=== PATIENT | female | born 1940 | race Caucasian/White ===

== ENCOUNTER → 2016-09-03 | Outpatient (CLI) | payer MEDICARE, OTHER ==
[~2016-09-03] MED LIST: ACHD5005 PO; ASPI-587 PO; ATOR20TA49 PO; CEFU250T PO; CEFU800T34 PO; CEPH500C PO; CLOP75TA28 PO; CLPD75T PO; DOCU-143 PO; ENXP40I.4 SQ; HYDR-1231 PO; HYDR-2890 PO; HYDR-757 PO; HYDR1TAB PO; MELO-195 PO; MELO15TA14 PO; MULT-301 PO; NITR-65 PO; ONDA-42 SL; ONDA4TAB8 PO; OXYC-197 PO; PRD20T PO; RIVA1TAB PO; THYR30TA2 PO; THYR60TA2 PO
[2016-09-03 10:09] LABS: BASOPHILS % (AUTO) 1 % (0-10); EOSINOPHILS # (AUTO) 0.2 10^3/uL (0.0-0.3); EOSINOPHILS % (AUTO) 3 % (0-10); LYMPHOCYTES # (AUTO) 1.4 X 10^3 (1.0-4.0); LYMPHOCYTES % (AUTO) 22 % (12-44); MEAN CORPUSCULAR HEMOGLOBIN 30 PG (25-34); MEAN CORPUSCULAR HGB CONC 34 G/DL (32-36); MEAN CORPUSCULAR VOLUME 88 FL (80-99); MEAN PLATELET VOLUME 11.5 FL (7.4-10.4); MONOCYTES # (AUTO) 0.6 X 10^3 (0.0-1.0); MONOCYTES % (AUTO) 9 % (0-12); NEUTROPHILS % (AUTO) 65 % (42-75); PLATELET COUNT 230 10^3/uL (130-400); RED BLOOD COUNT 4.91 10^6/uL (4.35-5.85); RED CELL DISTRIBUTION WIDTH 14.4 % (10.0-14.5); WHITE BLOOD COUNT 6.2 10^3/uL (4.3-11.0)
--- OUTSIDE RECORDS SUMMARY | 2016-09-03 13:26 | XMS REPORT | Continuity of Care Document ---
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 Daughter Azael would make decisions for her 08/28/15 5:55pm Organ Donor No 08/28/15 5:55pm Chief Complaint and Reason for Visit Chief Complaint Allergic Reaction Reason for Visit Allergic contact dermatitis Problems Active Problems Medical Problem Onset Date Status Acute deep vein thrombosis (DVT) of popliteal vein of left lower extremity Unknown Acute Acute deep vein thrombosis (DVT) of popliteal vein of left lower extremity Unknown Acute Acute deep vein thrombosis (DVT) of popliteal vein of left lower extremity Unknown Acute Allergic contact dermatitis Unknown Acute Headache Unknown Acute Headache Unknown Acute Hypertensive urgency Unknown Acute Hypertensive urgency Unknown Acute Hypertensive urgency Unknown Acute Lumbar back pain Unknown Acute Nausea alone Unknown Acute Nausea alone Unknown Acute Nausea and vomiting Unknown Acute UTI (urinary tract infection) Unknown Acute Uncontrolled hypertension Unknown Acute Urinary tract infection Unknown Acute Urinary tract infection Unknown Acute Urinary tract infection Unknown Acute Vertigo Unknown Acute Weakness generalized Unknown Acute Medications Current Home Medications Medication Dose Units Route Directions Days/Qty Instructions Start Date Meloxicam 15 Mg 15 Mg Oral Daily 08/28/15 Hydrocodone/Acetaminophen 1 Each 1 Tab Oral Twice A Day as needed for Pain 08/28/15 Multivitamin 1 Each 1 Tab Oral Daily 08/28/15 Thyroid,Pork 30 Mg 60 Mg Oral Daily 08/29/15 Clopidogrel Bisulfate 75 Mg 75 Mg Oral Daily 09/01/15 Atorvastatin Calcium 20 Mg 20 Mg Oral Daily 09/01/15 Past Home Medications Medication Directions Ordered Status Thyroid,Pork 60 Mg Tablet, 60 Mg Oral Daily 01/04/12 Discontinued Acetaminophen/Hydrocodone Bitart 1 Each Tablet, 1 - 2 Each Oral Every 6 Hours as needed 01/04/12 Discontinued Acetaminophen/Hydrocodone Bitart 1 Each Tablet, 1 Each Oral Every 4 Hours as needed 01/20/12 Discontinued Acetaminophen/Hydrocodone Bitart 1 Each Tablet, 1 Tab Oral Every 3 Hours as needed 01/30/12 Discontinued Enoxaparin Sodium 40 Mg/0.4 Ml Disp.syrin, 1 Each Sub-Q Daily 01/30/12 Discontinued Cefuroxime Axetil 500 Mg Tablet, 250 Mg Oral Twice A Day 01/24/13 Discontinued Meloxicam (Mobic) 15 Mg Tablet, 15 Mg Oral Daily 12/19/13 Discontinued Clopidogrel Bisulfate 75 Mg Tab, 75 Mg Oral Daily 12/23/13 Discontinued Cephalexin Monohydrate (Keflex) 500 Mg Capsule, 1 Each Oral Four Times Daily 01/23/15 Discontinued Hydrocodone Bit/Acetaminophen 1 Tab Tablet, 1 Tab Oral Every 4HRS as needed for Pain 01/23/15 Discontinued Ondansetron Hcl 4 Mg Tab, 4 Mg Sublingual Every 4HRS as needed for Nausea Discontinued Thyroid,Pork 30 Mg Tablet, 60 Mg Oral Daily 01/25/15 Discontinued Hydrocodone Bit/Acetaminophen 1 Each Tablet, 1 Tab Oral Every 4HRS as needed for Pain 01/25/15 Discontinued Nitrofurantoin Macrocrystals 100 Mg Capsule, 1 Each Oral Twice A Day Discontinued Rivaroxaban 1 Each Tab.ds.pk, 1 Each Oral As Directed 02/11/15 Discontinued Oxycodone Hcl/Acetaminophen 1 Each Tablet, 1 Each Oral Every 4HRS for Pain Discontinued Docusate Sodium 100 Mg Capsule, 100 Mg Oral Daily 02/17/15 Discontinued Ondansetron 4 Mg Tab.rapdis, 4 Mg Oral Every 4HRS as needed for Nausea Discontinued Cefuroxime Axetil 250 Mg Tablet, 250 Mg Oral Twice A Day for Uti (Begin 13 Am) 07/25/15 Discontinued Thyroid,Pork 60 Mg Tablet, 60 Mg Oral Daily 08/28/15 Discontinued Social History Social History Problem Response Recorded Date/Time Alcohol Use Denies Use 08/28/2015 6:06pm Recreational Drug Use No 08/28/2015 6:06pm Recent Foreign Travel No 01/09/2014 10:52am Recent Infectious Disease Exposure No 02/25/2016 5:37pm Hospitalization with Isolation Denies 01/09/2014 10:52am Recent Hopitalizations Y SURGERIES 02/25/2016 5:44pm Hospitalization with Isolation Denies 01/09/2014 10:52am Hospital Discharge Instructions No hospital discharge instructions. Plan of Care Discharge Date 02/25/16 7:02pm Disposition 01 HOME, SELF-CARE Condition at Discharge Stable Instructions/Education Provided Contact Dermatitis (ED) Prescriptions See Medication Section Referrals WILLY UMANZOR MD - Primary Care Physician Functional Status No functional status results. Allergies, Adverse Reactions, Alerts Allergen Type Severity Reaction Status Last Updated Morphine Adverse Reaction Mild "MAKES ME CRAZY", TAKES LORTAB AT HOME Active 01/26/15 Immunizations No immunization records. Vital Signs Acute Vital Signs Vital Response Date/Time Temperature (Fahrenheit) 97.8 degrees F (97.6 - 99.5) 02/25/2016 5:37pm Temperature (Calculated Celsius) 36.66746 degrees C (36.4 - 37.5) 02/25/2016 5:37pm Temperature Source Temporal 02/25/2016 5:37pm Pulse Rate (adult) 80 bpm (60 - 90) 02/25/2016 5:37pm Respiratory Rate 18 bpm (12 - 24) 02/25/2016 5:37pm Blood Pressure 137/87 mm Hg 02/25/2016 5:37pm Blood Pressure Mean 104 mm Hg 02/25/2016 5:37pm Pain Numeric Pain Scale 0-No Pain 02/25/2016 5:37pm Height (Feet) 5 feet 02/25/2016 5:37pm Height (Inches) 6 inches 02/25/2016 5:37pm Height (Calculated Centimeters) 167.762561 cm 02/25/2016 5:37pm Weight (Pounds) 175 pounds 02/25/2016 5:37pm Weight (Calculated Kilograms) 79.645360 kilograms 02/25/2016 5:37pm Capillary Refill Capillary Refill Less Than 3 Seconds 02/25/2016 5:37pm Height 5 ft 6 in Weight 175 lb Body Mass Index 28.2 kg/m^2 Results No known relevant diagnostic tests, laboratory data and/or discharge summary. Procedures No known history of procedures. Encounters Encounter Location Arrival/Admit Date Discharge/Depart Date Attending Provider Departed Emergency Room [facility] 02/25/16 5:15pm 02/24 7:02pm IVA BOND DO Recent Diagnosis
== END ==
LOC: LAB 09:50
PROVIDERS: ATTEND Family Medicine
DX: R53.1 Weakness (principal)
CPT/HCPCS: 36415; 84443; 85025

== ENCOUNTER → 2017-02-05 | Outpatient (CLI) | payer MEDICARE, OTHER ==
--- NOTE | 2017-02-05 11:08 | Diagnostic Imaging Report ---
3 views of the left shoulder. INDICATION: Left shoulder pain. FINDINGS: No fracture, dislocation or radiopaque foreign body. There is severe degenerative change seen in the left glenohumeral joint with inferior osteophytes, subchondral sclerosis and subchondral cystic changes. The acromioclavicular joints demonstrate moderate osteoarthritis changes. IMPRESSION: Markedly severe left glenohumeral joint osteoarthritis. Dictated by: Dictated on workstation # [id number]
--- NOTE | 2017-02-05 11:10 | Diagnostic Imaging Report ---
EXAMINATION: Two views of the left hip. INDICATION: Left hip replacement. FINDINGS: There is total left hip arthroplasty in good position. No acute fracture. No abnormal lucency or evidence of loosening or displacement of the hardware. IMPRESSION: No acute process. Dictated by: Dictated on workstation # [id number]
--- NOTE | 2017-02-05 12:28 | Diagnostic Imaging Report ---
Two views of the left knee. INDICATION: Left knee pain. FINDINGS: There is total left knee replacement in good alignment. There is no acute fracture seen. No suprapatellar effusion. IMPRESSION: No acute process. Dictated by: Dictated on workstation # [id number]
== END ==
LOC: RAD 09:32
PROVIDERS: ATTEND Family Medicine
DX: M19.012 Primary osteoarthritis, left shoulder (principal); M25.562 Pain in left knee; M25.552 Pain in left hip; Z96.642 Presence of left artificial hip joint; Z96.652 Presence of left artificial knee joint
CPT/HCPCS: 73030; 73502; 73562

== ENCOUNTER → 2017-04-17 | Outpatient (CLI) | payer MEDICARE, OTHER ==
--- NOTE | 2017-04-17 10:24 | Diagnostic Imaging Report ---
PROCEDURE: MRI right joint upper extremity without contrast. TECHNIQUE: Multiplanar, multisequence non contrast-enhanced MRI of the right upper extremity was accomplished. INDICATION: Right shoulder pain. FINDINGS: There is no os acromiale. The humeral head demonstrates subchondral edema and cyst formation at the rotator cuff insertion site particularly posterolaterally and prominent osteophyte formation particularly large inferiorly along the humeral head. Subchondral cyst formation at the upper aspect of the glenoid is seen. There is suggestion of severe loss of cartilage in the glenohumeral joint compatible with advanced osteoarthritis. The long head of biceps tendon appears to be within its groove. There is poor definition of the glenoid labrum probably related to degeneration. The acromioclavicular joint demonstrates mild degenerative changes with superior osteophytes. No significant inferior osteophytes. The supraspinatus and infraspinatus demonstrate undersurface partial tear. This is associated with mild retraction of the torn deep fibers with about 7 mm retraction. This is best seen on oblique coronal images 9, 10, and 11. The subscapularis tendon demonstrate a high-grade partial tear in its distal tendon fibers. There is mild atrophy in the infraspinatus and subscapularis muscles and moderate atrophy of the supraspinatus muscle. IMPRESSION: 1. Severe osteoarthritis changes with near-complete loss of cartilage in the glenohumeral joint. 2. Prominent partial tears in the rotator cuff tendons. There is a portion of the supraspinatus and infraspinatus tendon demonstrating mild retraction of its torn undersurface fibers. 3. Mild/ moderate atrophy of the muscles of the rotator cuff. Dictated by: Dictated on workstation # [id number]
== END ==
LOC: RAD 08:15
PROVIDERS: ATTEND Family Medicine
DX: M19.011 Primary osteoarthritis, right shoulder (principal); M75.101 Unspecified rotator cuff tear or rupture of right shoulder, not specified as traumatic; M62.511 Muscle wasting and atrophy, not elsewhere classified, right shoulder
CPT/HCPCS: 73221

== ENCOUNTER → 2017-04-30 | Outpatient (CLI) | payer MEDICARE, OTHER ==
--- NOTE | 2017-04-30 13:42 | Diagnostic Imaging Report ---
EXAMINATION: Bilateral lower extremity duplex venous ultrasound. TECHNIQUE: DVT protocol. Multiple sonographic images with color Doppler and waveform interrogation were performed of the lower extremity veins, bilaterally, with compression and augmentation maneuvers. INDICATION: Bilateral leg swelling. FINDINGS: The lower extremity veins from the common femoral veins to below the knee veins were examined with normal color-flow, compressibility and normal waveform demonstrated. The great saphenous vein on the left side is not evaluated. The great saphenous vein on the right side appears patent. There is a medial left popliteal lesion measuring 2.5 x 1.7 x 3.4 cm with hypoechoic internal echotexture and increased through transmission likely related to a Mcfarland's cyst with debris or hemorrhage. The right calf medial area of pain is scanned with no underlying lesion identified. IMPRESSION: 1. No evidence of DVT in either lower extremity. 2. Hypoechoic lesion measuring 3.4 cm in the medial aspect of the popliteal fossa on the right side is probably a Mcfarland's cyst with internal hemorrhage or debris. Dictated by: Dictated on workstation # [id number]
== END ==
LOC: RAD 12:44
PROVIDERS: ATTEND Nurse Practitioner Family
DX: R22.43 Localized swelling, mass and lump, lower limb, bilateral (principal); R93.7 Abnormal findings on diagnostic imaging of other parts of musculoskeletal system
CPT/HCPCS: 93970

== ENCOUNTER → 2017-04-30 | Outpatient (CLI) | payer MEDICARE, OTHER ==
[2017-04-30 13:53] LABS: ABG BASE EXCESS -0.4 MMOL/L (-2.5-2.5); ABG HCO3 24 MMOL/L (23-27); ABG OXYGEN SATURATION 98 % (94-100); ABG PCO2 35 MMHG (35-45); ABG PH 7.43 (7.37-7.43); ABG PO2 85 MMHG (79-93); ABG TCO2 24.6 MMOL/L (21.0-31.0)
[2017-04-30 13:54] LABS: ALLENS TEST YES-POS; PATIENT TEMP 97.1
== END ==
LOC: RT 12:47
PROVIDERS: ATTEND Nurse Practitioner Family
DX: R06.02 Shortness of breath (principal)
CPT/HCPCS: 82805; 94060; 94726; 94729

== ENCOUNTER → 2017-05-28 | Outpatient (CLI) | payer MEDICARE, OTHER ==
--- NOTE | 2017-05-28 18:49 | Diagnostic Imaging Report ---
INDICATION: Right hip pain. AP and oblique views of the right hip are obtained and compared to 01/09/14. FINDINGS: Right hip prosthesis appears in good alignment. There is no sign of fracture or loosening. There are some chronic appearing soft tissue calcifications adjacent to the lesser trochanter. IMPRESSION: Well aligned right hip prosthesis with no acute appearing abnormality. Dictated by: Dictated on workstation # [id number]
== END ==
LOC: RAD 18:21
PROVIDERS: ATTEND Family Medicine
DX: M25.551 Pain in right hip (principal); Z96.641 Presence of right artificial hip joint
CPT/HCPCS: 73502

== ENCOUNTER → 2017-06-11 | Outpatient (CLI) | payer MEDICARE, OTHER ==
--- NOTE | 2017-06-11 12:42 | Diagnostic Imaging Report ---
PROCEDURE: MRI right joint lower extremity without contrast. TECHNIQUE: Multiplanar, multisequence non contrast-enhanced MRI of the right lower extremity was accomplished. INDICATION: Right hip pain. History of right hip replacement. FINDINGS: Please note that the replacement hardware produces prominent susceptibility artifact that limits evaluation of the surrounding osseous structures. The marrow signal is altered around the prosthesis with no definite marrow signal abnormality seen. There is suggestion of a small pocket of fluid measuring 1.5 x 2.2 x 2.4 cm posterior to the location of the neck of the left femur just posterior to the prosthesis. This is not surrounded with significant edema or signal abnormality in the surrounding soft tissues and is favored to be a postoperative seroma of questionable significance. The visualized portions of the supra-acetabular region and the superior and inferior pubic rami on the right side appear unremarkable. Muscles have normal signal around the right hip. The portion of the iliopsoas tendon is obscured at the hip joint level from prosthesis related artifacts. The rest of the tendon and the insertion of the iliopsoas appear normal. Mild edema around the gluteus medius tendon insertion is seen compatible with tendinosis. Coronal image demonstrating the left hip shows distention of the greater trochanteric bursa on the left side. Minimal edema around the origin of the hamstring muscles is seen without significant tear. IMPRESSION: Suggestion of tendinitis involving the insertion of the right gluteus medius and the origin of the hamstring muscles with no significant tear. Dictated by: Dictated on workstation # [id number]
== END ==
LOC: RAD 08:44
PROVIDERS: ATTEND Family Medicine
DX: M25.551 Pain in right hip (principal); Z96.641 Presence of right artificial hip joint
CPT/HCPCS: 73721

== ENCOUNTER 2017-06-17 09:59 | Outpatient (CLI) | payer MEDICARE, OTHER ==
[~2017-06-17] VITALS: Ht 167.6 cm; Wt 72.1 kg
[2017-06-17 10:09] VITALS: BP 140/63
[2017-06-17] MEDS ORDERED: AMLO10TA2 PO (10:25)
[2017-06-17] MEDS ORDERED: ENAL20TA PO (10:25)
[2017-06-17] MEDS ORDERED: MULT1TAB69 PO (10:25)
[2017-06-17] MEDS ORDERED: ASPI-586 PO (10:25)
[2017-06-17] MEDS ORDERED: ATOR20TA66 PO (10:25)
[2017-06-17] MEDS ORDERED: CLOP75TA28 PO (10:25)
[2017-06-17 11:01] LABS: BILIRUBIN,URINE NEGATIVE (NEGATIVE); KETONES,URINE NEGATIVE (NEGATIVE); LEUKOCYTE ESTERASE ,URINE 3+ (NEGATIVE); NITRITE,URINE POSITIVE (NEGATIVE); PH,URINE 6 (5-9); PROTEIN,URINE 1+ (NEGATIVE); UROBILINOGEN,URINE NORMAL (NORMAL)
[2017-06-17 11:08] LABS: BASOPHILS % (AUTO) 1 % (0-10); EOSINOPHILS # (AUTO) 0.2 10^3/uL (0.0-0.3); EOSINOPHILS % (AUTO) 3 % (0-10); LYMPHOCYTES # (AUTO) 1.6 X 10^3 (1.0-4.0); LYMPHOCYTES % (AUTO) 26 % (12-44); MEAN CORPUSCULAR HEMOGLOBIN 30 PG (25-34); MEAN CORPUSCULAR HGB CONC 33 G/DL (32-36); MEAN CORPUSCULAR VOLUME 90 FL (80-99); MEAN PLATELET VOLUME 11.8 FL (7.4-10.4); MONOCYTES # (AUTO) 0.6 X 10^3 (0.0-1.0); MONOCYTES % (AUTO) 10 % (0-12); NEUTROPHILS # (AUTO) 3.7 X 10^3 (1.8-7.8); NEUTROPHILS % (AUTO) 61 % (42-75); PLATELET COUNT 195 10^3/uL (130-400); RED BLOOD COUNT 4.54 10^6/uL (4.35-5.85); RED CELL DISTRIBUTION WIDTH 14.2 % (10.0-14.5)
[2017-06-17 11:09] LABS: WBC,URINE 50-100 /HPF
[2017-06-17 11:14] LABS: INR 0.9 (0.8-1.4); PROTHROMBIN TIME PATIENT 12.3 SEC (12.2-14.7)
--- NOTE | 2017-06-17 11:16 | Diagnostic Imaging Report ---
EXAMINATION: PA and lateral views of the chest. INDICATION: Preoperative evaluation for shoulder arthroplasty. FINDINGS: The lungs demonstrate hyperinflation and minimal prominence of the interstitial markings that appear to be chronic. No focal infiltrate. The heart size is normal. No effusion or pneumothorax. The mediastinum and elena appear unremarkable. Degenerative changes in the thoracic spine discs and mild anterior osteophytes are noted. IMPRESSION: No acute process. Dictated by: Dictated on workstation # [id number]
[2017-06-17 11:23] LABS: ANION GAP 7 MMOL/L (5-14); BLOOD UREA NITROGEN 13 MG/DL (7-18); BUN/CREATININE RATIO 18; CALCIUM 9.5 MG/DL (8.5-10.1); CARBON DIOXIDE 29 MMOL/L (21-32); CHLORIDE 105 MMOL/L (98-107); CREATININE SERUM 0.73 MG/DL (0.60-1.30); GFR ESTIMATED > 60; GLUCOSE 94 MG/DL (70-105); SODIUM 141 MMOL/L (135-145)
== END 2017-06-17 10:55 | disposition home or self-care (01) ==
LOC: PREOP 09:59
PROVIDERS: ATTEND Orthopaedic Surgery
DX: Z01.810 Encounter for preprocedural cardiovascular examination (principal); Z01.812 Encounter for preprocedural laboratory examination; Z11.2 Encounter for screening for other bacterial diseases; M75.101 Unspecified rotator cuff tear or rupture of right shoulder, not specified as traumatic; M79.601 Pain in right arm; R53.83 Other fatigue; I10 Essential (primary) hypertension; Z22.322 Carrier or suspected carrier of Methicillin resistant Staphylococcus aureus; R82.90 Unspecified abnormal findings in urine
CPT/HCPCS: 36415; 71020; 80048; 81000; 85025; 85610; 86850; 86900; 86901; 87081; 87088; 87186

== ENCOUNTER 2017-07-01 06:00 | Inpatient (IN) | payer MEDICARE, OTHER ==
[~2017-07-01] VITALS: Ht 167.6 cm; Wt 72.1 kg
[~2017-07-01 06:00] MED LIST changes: +AMLO10TA2 PO; +ASPI-586 PO; +ATOR20TA66 PO; +ENAL20TA PO; +MULT1TAB69 PO
[2017-07-01] MEDS: LACTATED RINGERS 1,000 ML IV PRN ×2 (06:25→09:10)
[2017-07-01] MEDS ORDERED: fentaNYL INJECTION 100 MCG/2 ML AMP ONE (06:49)
[2017-07-01] MEDS ORDERED: MIDAZOLAM 2 MG/2 ML (VERSED) VIAL ONE (06:49)
[2017-07-01] MEDS ORDERED: ROPIVACAINE 5MG/ML 30ML VIAL ONE (06:49)
[2017-07-01] MEDS ORDERED: LACTATED RINGERS 1,000 ML IV PRN (06:56)
[2017-07-01] MEDS ORDERED: GENTAMICIN 40 MG/ML 2 ML INJ SDV ONE (06:59)
[2017-07-01] MEDS ORDERED: NEO/POLY/BAC (NEOSPORIN) OINT 15 GM TUBE ONE (06:59)
[2017-07-01] MEDS ORDERED: ONDANSETRON 4 MG/2 ML (SDV) Z0FRAN IVP ONE ×2 (07:00→07:30)
[2017-07-01] MEDS ORDERED: DEXAMETHASONE 4 MG/ML SDV (DECADRON) IV ONE ×2 (07:00→07:30)
[2017-07-01] MEDS ORDERED: CELECOXIB 100 MG (CeleBREX) CAP PO ONE ×3 (07:00→07:30)
[2017-07-01] MEDS ORDERED: ceFAZolin INJECTION 1,000 MG in NS (IVPB) 50 ML IV ONE (07:00)
[2017-07-01] MEDS ORDERED: GABAPENTIN 600 MG (NEURONTIN) TAB PO ONE ×2 (07:00→07:30)
[2017-07-01] MEDS ORDERED: ONDANSETRON 4 MG/2 ML (SDV) Z0FRAN ONE (07:06)
[2017-07-01] MEDS ORDERED: ceFAZolin 2 GM/50 ML NS 50 ML ONE (07:07)
[2017-07-01] MEDS ORDERED: DEXAMETHASONE 4 MG/ML SDV (DECADRON) ONE (07:07)
[2017-07-01] MEDS ORDERED: ROCURONIUM 50 MG/5 ML (ZEMURON) VIAL IV ONE (07:12)
[2017-07-01] MEDS ORDERED: proPOfol 200 MG/20 ML (DIPRIVAN) VIAL IV ONE (07:12)
[2017-07-01] MEDS ORDERED: ceFAZolin 2 GM/50 ML NS 50 ML IV ONE (07:30)
--- NOTE | 2017-07-01 07:35 | Diagnostic Imaging Report ---
INDICATION: Osteoarthritis. 2 views were obtained. FINDINGS: There is moderate arthrosis of the acromioclavicular joint. There is severe osteoarthritic change of the right glenohumeral joint. This includes almost complete loss of joint space, subchondral sclerosis and marginal osteophytosis. There is no fracture or dislocation. Right lung is clear. Soft tissues are unremarkable. IMPRESSION: Degenerative changes about the right shoulder as described Dictated by: Dictated on workstation # [id number]
[2017-07-01] MEDS ORDERED: fentaNYL INJECTION 100 MCG/2 ML AMP IVP PRN (07:45)
[2017-07-01] MEDS ORDERED: BISACODYL 10 MG SUPP (DULCOLAX) PR PRN (07:45)
[2017-07-01] MEDS ORDERED: PROMETHAZINE INJ 25 MG/ML (PHENERGAN) AMP IVP PRN (07:45)
[2017-07-01] MEDS ORDERED: diphenhydrAMINE 50 MG/ML INJ (BENADRYL) IV PRN (07:45)
[2017-07-01] MEDS ORDERED: ONDANSETRON 4 MG/2 ML (SDV) Z0FRAN IVP PRN ×2 (07:45→10:15)
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
--- NOTE | 2017-07-01 07:55 | Progress Note-Pre Operative ---
Pre-Operative Progress Note H&P Reviewed The H&P was reviewed, patient examined and no changes noted. Date Seen by Provider: Jul 01, 2017 Time Seen by Provider: 07:45 Date H&P Reviewed: Jul 01, 2017 Time H&P Reviewed: 07:45 Pre-Operative Diagnosis: Primary osteoarthritis right shoulder Rotator cuff arthropathy right ALEXSANDER Francisco DO Jul 01, 2017 7:55 am
[2017-07-01] MEDS ORDERED: TRANEXAMIC ACID 100 MG/ML 10 ML INJECTION IV ONE (08:39)
[2017-07-01] MEDS ORDERED: NEOSTIGMINE (BLOXIVERZ ) 1 MG/1ML 10 ML VIAL ONE (09:44)
[2017-07-01] MEDS ORDERED: GLYCOPYRROLATE 0.2 MG/ML (ROBINUL) 2 ML VIAL ONE (09:44)
[2017-07-01] MEDS ORDERED: SEVOFLURANE (ULTANE) 15 ML INHAL SOLN ONE (09:53)
--- NOTE | 2017-07-01 10:11 | Progress Note-Post Operative ---
Post-Operative Progess Note Surgeon (s)/Oncology Patient Navigator (s) Surgeon ALEXSANDRE GUILLEN DO Oncology Patient Navigator: Zaid Mcclendon FRINGE WEAVERAlicia Pre-Operative Diagnosis Primary osteoarthritis right shoulder Rotator cuff arthropathy right shoul Post-Operative Diagnosis same Procedure & Operative Findings Date of Procedure 07/01/17 Procedure Performed/Findings Right reverse total shoulder arthroplasty Anesthesia Type General with interscalene block Estimated Blood Loss Estimated blood loss (mL): 100 ml Specimens/Packing Specimens Removed none ALEXSANDER GUILLEN DO Jul 01, 2017 10:11 am
[2017-07-01] MEDS ORDERED: HYDROmorphone (DILAUDID) 2 MG/ML VIAL IVP PRN (10:15)
--- NOTE | 2017-07-01 11:05 | Diagnostic Imaging Report ---
EXAMINATION: Portable single AP view of the right shoulder. INDICATION: Post joint replacement. FINDINGS: There is a reversed total right shoulder arthroplasty seen. The acromioclavicular joint osteoarthritis with prominent osteophytes mostly projecting superiorly are noted. IMPRESSION: Baseline single AP view post right shoulder total arthroplasty. Dictated by: Dictated on workstation # [id number]
--- NOTE | 2017-07-01 11:30 | Consultation-Hospitalist ---
HPI History of Present Illness: HPI/Chief Complaint Pt is a 77yoCF with a PMH of HTN, CVA x4, and hypothyroidism who was admitted for rotator cuff surgery. I am consulted for medical management. She reports doing well. She denies any pain at this time. She has had 8 surgeries in the past and denies complications. She reports feeling well prior to the surgery as well. She denies any fevers, chills, abd pain, chest pain, cough, SOB. Her only request at this time is to have her artificial teeth in. Exam Limitations: no limitations Date Seen 07/01/17 Attending Physician Vinay Morgan Floyd R MD Referring Physician Date of Admission Jul 01, 2017 at 06:00 Home Medications & Allergies Home Medications Reviewed patient Home Medication Reconciliation Form Allergies Allergies Coded Allergies morphine (Verified Adverse Reaction, Mild, "MAKES ME CRAZY", TAKES LORTAB AT HOME, 01/26/15) Past [id number]-[id number] Hx Patient Social History Alcohol Use: Denies Use Recreational Drug Use: No Smoking Status: Never a Smoker Physical Abuse Screen: No Sexual Abuse: No Recent Foreign Travel: No Contact w/other who traveled: No Recent Hopitalizations: No Recent Infectious Disease Expo: No Immunizations Up To Date Tetanus Booster (TDap): More than 5yrs Seasonal Allergies Seasonal Allergies: No Surgeries Yes (BILAT. 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: Hysterectomy Genitourinary Kidney Infection, Bladder Infection Gastrointestinal No Gall Bladder Disease Musculoskeletal Yes (CHRONIC L LOWER LEG/ANKLE SWELLING SINCE HIP REPLACEMENT, ) Arthritis, Chronic Back Pain Endocrine History of Endocrine Disorders: Yes Endocrine Disorders: Hypothyroidsim HEENT History of HEENT Disorders: Yes HEENT Disorders: Cataract Hearing Impairment: Hard of Hearing Cancer No Psychosocial History of Psychiatric Problem: No Integumentary History of Skin or Integumenta: No Blood Transfusions History of Blood Disorders: No Adverse Reaction to a Blood Tr: No Family Medical History Family Hx: Congenital heart disease 19 MOTHER Congestive heart failure 19 MOTHER Family history: Cardiovascular disease 19 MOTHER Heart disease 19 MOTHER Myocardial infarction Stroke 19 FATHER No Family History of: Abdominal aortic aneurysm [place]'s disease Alcoholism Aphasia Cancer Cancer of colon Cataract Chest pain Cystic fibrosis Dementia Dysphagia Family history: Allergy Family history: Alzheimer's disease Family history: Arthritis Family history: Asthma Family history: Breast disease Family history: Coronary thrombosis Family history: Diabetes mellitus Family history: Gastrointestinal disease Family history: Glaucoma Family history: Hypertension Family history: Osteoporosis Family history: Thyroid disorder Headache Hearing loss Hereditary disease History of - anemia History of - disorder History of - respiratory disease History of drug abuse Human immunodeficiency virus (HIV) seropositivity Hypercholesterolemia Infertile Kidney disease Malignant neoplasm of lung Parkinson's disease Prostate cancer Psychotic disorder Seizure disorder Tuberculosis Visual impairment Review of Systems Constitutional: No chills, No fever EENTM: No blurred vision, No double vision, No nose congestion, No throat pain Respiratory: No cough, No dyspnea on exertion, No short of breath Cardiovascular: No chest pain, No edema, No palpitations Gastrointestinal: No abdominal pain, No constipation, No diarrhea, No nausea, No vomiting Genitourinary: No dysuria, No frequency Musculoskeletal: joint pain, No muscle pain Skin: No lesions, No rash Psychiatric/Neurological: Denies Headache, Denies Numbness, Denies Tingling Physical Exam Physical Exam Vital Signs Capillary Refill : General Appearance: No Apparent Distress, WD/WN HEENT: Moist Mucous Membranes, Other (edentulous) Neck: Non Tender, Supple Respiratory: Lungs Clear, No Respiratory Distress Cardiovascular: Regular Rate, Rhythm, No Murmur Gastrointestinal: Normal Bowel Sounds, Non Tender, Soft Extremity: No Calf Tenderness, No Pedal Edema, Other (right shoulder in brace) Neurologic/Psychiatric: Alert, Oriented x3, Normal Mood/Affect Skin: Normal Color, Warm/Dry Assessment/Plan Admission Diagnosis chronic arthritis s/p right reverse total shoulder Diagnosis/Problems Diagnosis/Problems (1) Rotator cuff insufficiency of right shoulder Status: Chronic Assessment & Plan: s/p repair management per primary PT/OT (2) Essential (primary) hypertension Assessment & Plan: Resume home antihypertensives (3) History of CVA (cerebrovascular accident) Status: Chronic Assessment & Plan: Resume Plavix (4) Hypothyroidism Assessment & Plan: On [place] Thyroid Clinical Quality Measures DVT/VTE Risk/Contraindication: Risk Factor Score Per Nursin RFS Level Per Nursing on Admit: 4+=Very High IGNACIO ESPINOSA MD Jul 01, 2017 11:30
[2017-07-01 12:00] VITALS: BP 109/65
[2017-07-01] MEDS ORDERED: INFLUENZA TRIvalent 2017-2018 0.5 ML/45 MCG SYR IM ONE (12:00)
[2017-07-01] MEDS: ENALAPRIL 10 MG (VASOTEC) TAB PO SCH (12:13)
[2017-07-01] MEDS: MELOXICAM 7.5 MG (MOBIC) TABLET PO SCH (12:14)
[2017-07-01] MEDS: D5 1/2 NS 1000 ML IV SOLUTION 1,000 ML IV SCH (15:14)
[2017-07-01] MEDS: ceFAZolin 2 GM/50 ML NS 50 ML IV SCH ×2 (15:58→23:40)
[2017-07-01 16:00] VITALS: BP 112/56
--- NOTE | 2017-07-01 18:29 | OPERATIVE REPORT ---
DATE OF SERVICE: 07/01/2017 PREOPERATIVE DIAGNOSES: 1. Severe primary osteoarthritis, glenohumeral joint, right shoulder. 2. Chronic rotator cuff arthropathy, right shoulder. POSTOPERATIVE DIAGNOSES: 1. Severe primary osteoarthritis, glenohumeral joint, right shoulder. 2. Chronic rotator cuff arthropathy, right shoulder. PROCEDURE: Right reverse total shoulder arthroplasty. SURGEON: Alexsander Guillen DO. NURSE ANESTHESIA PROGRAM DIRECTOR: KILEY Garcia. SURGICAL TIME CYCLE OPERATOR DUTIES: Zaid Mcclendon, salesperson surgical appliances was utilized throughout the entire procedure for patient positioning, soft tissue retraction, placement of metallic implants, wound closure, dressing application and patient transfer. ANESTHESIA: General with interscalene block. ESTIMATED BLOOD LOSS: 50 mL. INDICATIONS AND FINDINGS: The patient is a 77-year-old female who was seen with chief complaint of progressive right shoulder pain, loss of motion and weakness. X-rays revealed a complete collapse of the glenohumeral joint with severe osteophyte formation present on the inferior aspect of the humeral head and deformity and loss of the round contour to the femoral head. The patient had chronic rotator cuff tendon tears of the shoulder with superior migration of the humeral head. The patient was taken to surgery where a reverse total shoulder arthroplasty was performed on the right utilizing the Arthrex system with a medium size Arthrex universal glenoid baseplate, a 6.5 x 25 mm nonlocking [employer] Revers central screw, 230 mm peripheral locking screws were used, a 39+4 lateral glenosphere was utilized along with a size 10 press fit [employer] Revers, press fit humeral stem with a medium 39+3 humeral insert and a 39+2 right suture cup. PROCEDURE IN DETAIL: The patient was seen by anesthesia preoperatively and under ultrasound guidance, an interscalene block was performed on the right to decrease postop pain and decrease amount of medication required during the surgical procedure. The patient was transferred to the operating room where general inhalation anesthetic was administered. The patient was placed in a beach chair position. The head was secured with a sugar reprocess operator head. A ChloraPrep and sterile drape of the right shoulder, right upper extremity was performed. A deltopectoral incision was made over the anterior surface of the right shoulder beginning at the clavicle and carried over the coracoid process and over the anterior aspect of the right upper arm. Incision was deepened. Deltopectoral interval was identified. This was bluntly dissected. The cephalic vein was identified and this along the deltoid was retracted laterally. Subdeltoid dissection was performed to remove adhesion formation. The superior 1 cm of the pectoralis major insertion on the humerus was released with electrocautery. A 5 mm of conjoined tendon insertion at the coracoid process was released as well. The arm was externally rotated. Electrocautery was used to divide the subscapularis tendon along the anatomic neck of the proximal humerus down to the large subhumeral head osteophyte formation. The shoulder was dislocated. The osteophytes were removed around the humeral head. A biceps tenotomy was completed as well. An oscillating saw was used to resect the humeral head. A proximal humerus protector plate was then inserted. As glenoid retractors were placed, there was significant hypertrophy of the glenoid capsule inferiorly with a large amount of synovitis. This was excised with electrocautery including the labrum and the superior attachment of the biceps tendon. This provided an excellent view of the glenoid. The medium size drill guide was inserted and a central drill guide was then placed. This was overreamed with the central drill bit and the face was resurfaced over the guide pin. The baseplate was then impacted into position. The central hole was then tapped and a mm nonlocking screw was inserted. Through the drill guide inferiorly, a yard pilot hole was drilled. A 30 mm locking screw was then placed inferiorly. Through the drill guide superiorly, an additional 30 mm locking screw was placed. The tube was inserted to circumferentially clear soft tissue and bone from around the baseplate. Attention was then directed to the proximal humerus. Proximal humerus was then broached with up to a 10 mm broach. Utilizing the humeral broaches with the arm in 40 degrees of retroversion, the proximal humerus was then broached with the humeral stem broaches. Using the posterior offset guide, the metaphyseal region, the proximal humerus was then reamed. The bony surfaces were irrigated extensively with normal saline solution. The glenosphere was then placed in the proximal humerus. The arm was internally rotated and the glenosphere was reduced into the baseplate. The arm was then externally rotated and the baseplate was impacted in the position and grasping tool was inserted. The glenosphere was noted to be securely attached to the baseplate. Provisional components were assembled. The shoulder was reduced with provisional components and found to be stable. These provisional components were removed. The humeral construct was then secured with screws. This was impacted into position. The liner was then inserted and impacted into position. The shoulder was reduced, taken through a range of motion and found to be stable. There was significant shortening of the subscapularis tendon. This was not repaired. The shoulder was additionally irrigated with normal saline solution. The deltopectoral incision was then closed with a running suture of #1 Vicryl. Subcutaneous tissues were closed in layers with 0 and 2-0 Vicryl suture. The skin was closed with stainless steel isma and Adaptic Neosporin bulky dressing was placed about the right shoulder. The arm was placed in a sling. The patient was awakened and was transported to postop recovery with anesthesia personnel present in satisfactory condition. Job ID: [id number] DocumentID: [id number] Dictated Date: 07/01/2017 13:37:06 Steam Conditioner Operator Date: 07/01/2017 18:29:12 Dictated By: ALEXSANDER GUILLEN DO
[2017-07-01 20:00] VITALS: BP 119/54
[2017-07-02] VITALS: BP 118/56
[2017-07-02 04:15] VITALS: BP 122/61
[2017-07-02] MEDS: D5 1/2 NS 1000 ML IV SOLUTION 1,000 ML IV SCH ×2 (05:32→11:12)
[2017-07-02] MEDS: THYROID 1 GRAIN (60 - 65 MG) TABLET PO SCH (05:32)
[2017-07-02 06:15] LABS: MEAN PLATELET VOLUME 11.1 FL (7.4-10.4); RED BLOOD COUNT 3.72 10^6/uL (4.35-5.85); RED CELL DISTRIBUTION WIDTH 14.2 % (10.0-14.5); WHITE BLOOD COUNT 10.3 10^3/uL (4.3-11.0)
[2017-07-02 06:34] LABS: ANION GAP 9 MMOL/L (5-14); BLOOD UREA NITROGEN 12 MG/DL (7-18); BUN/CREATININE RATIO 19; CALCIUM 8.5 MG/DL (8.5-10.1); CARBON DIOXIDE 25 MMOL/L (21-32); CHLORIDE 109 MMOL/L (98-107); CREATININE SERUM 0.63 MG/DL (0.60-1.30); GFR ESTIMATED > 60; GLUCOSE 120 MG/DL (70-105); POTASSIUM 3.9 MMOL/L (3.6-5.0); SODIUM 143 MMOL/L (135-145)
[2017-07-02 08:00] VITALS: BP 135/60
[2017-07-02] MEDS: MELOXICAM 7.5 MG (MOBIC) TABLET PO SCH (08:26)
[2017-07-02] MEDS: SENNA W/DOCUSATE (SENOKOT S) TABLET PO SCH ×2 (08:26→22:53)
[2017-07-02] MEDS: ENALAPRIL 10 MG (VASOTEC) TAB PO SCH (08:27)
--- NOTE | 2017-07-02 10:00 | Physical Therapy Evaluation ---
PT Evaluation-General Medical Diagnosis Admission Date Jul 01, 2017 at 06:00 Medical Diagnosis: rotator cuff surgery, right side Onset Date: Jul 01, 2017 Therapy Diagnosis Therapy Diagnosis: impaired strength and ROM of right shoulder Height/Weight Height (Feet): 5 Height (Inches): 6.00 Weight (Pounds): 159 Weight (Ounces): 0.0 Precautions Precautions/Isolations: Standard Precautions Weight Bear Status Right Lower Extremity: Right Full Weight Bearing Left Lower Extremity: Left Full Weight Bearing Referral Physician: Zaid Mcclendon APRN Reason for Referral: Evaluation/Treatment Medical History Pertinent Medical History: Arthritis, CVA, HTN, Hypothroidism Additional Medical History chronic lower leg/ankle swelling, chronic back pain, [place], surg (bilateral TKR and THR, adrenal, appendectomy, gallbladder, hysterectomy, oophorectomy) Reviewed History: Yes Social History Home: Single Level Current Living Status: Alone PT Steps Into Home: 3 Prior/Core FIM Prior Level of Function Functional [place] Measure 0=Not Assessed/NA 4=Minimal Assistance 1=Total Assistance 5=Supervision or Setup 2=Maximal Assistance 6=Modified [place] 3=Moderate Assistance 7=Complete [place] Bed Mobility: 6 Transfers (B,C,W/C) (FIM): 6 Gait: 6 patient was using a 4 wheeled walker before the surgery PT Evaluation-Current Subjective Patient sitting EOB pre tx, agrees to PT, has 1/10 pain in her right shoulder. Pt/Family Goals to go home and be independent Objective Patient Orientation: Normal For Age Attachments: IV ROM/Strength ROM Upper Extremities NT ROM Lower Extremities NT Strength Upper Extremities NT Strength Lower Extremities NT Sensory Vision: Functional Hearing: Impaired Sensation Right Upper Extremit: Intact Transfers Functional [place] Measure 0=Not Assessed/NA 4=Minimal Assistance 1=Total Assistance 5=Supervision or Setup 2=Maximal Assistance 6=Modified [place] 3=Moderate Assistance 7=Complete [place] Treatment went over HEP with patient, she was presented with a HEP with pictures, written directions, and was instructed by therapist, it consisted of pendulum exercises , elbow ROM, forearm supination/pronation, and wrist ROM. Patient refused to perform pendulums because she states that any time she bends over she falls, but she states that at home maybe she can just bend over a little bit (no enough to fall), and perform smaller pendulum exercises. Assessment/Needs Patient understood HEP and had no difficulty performing it, minus the pendulums. Rehab Potential: Good PT Plan Problem List Problem List: Functional Strength, Balance, ROM Treatment/Plan Treatment Plan: Discontinue PT Treatment Plan: Other Treatment Duration: Jul 02, 2017 Frequency: Estimated Hrs Per Day: Other Patient and/or Family Agrees t: No Safety Risks/Education Patient Education: Reviewed Precautions, Reviewed Use of Ice, Reviewed Don/ Doff Brace, Safety Issues Teaching Recipient: Patient Teaching Methods: Demonstration, Discussion Response to Teaching: Verbalize Understanding, Return Demonstration Time/GCodes Time In: 940 Time Out: 950 Total Billed Treatment Time: 10 Total Billed Treatment 1 visit EVL SAVANNAH GUTIÉRREZ PT Jul 02, 2017 10:00
--- NOTE | 2017-07-02 12:31 | Progress Note-Hospitalist ---
Subjective HPI/CC On Admission Date Seen by Provider: Jul 02, 2017 Time Seen by Provider: 11:00 Pt is a 77yoCF with a PMH of HTN, CVA x4, and hypothyroidism who was admitted for rotator cuff surgery. I am consulted for medical management. She reports doing well. She denies any pain at this time. She has had 8 surgeries in the past and denies complications. She reports feeling well prior to the surgery as well. She denies any fevers, chills, abd pain, chest pain, cough, SOB. Her only request at this time is to have her artificial teeth in. Subjective/Events-last exam Denies complaints today. Has been out of bed. Pain well controlled. Passing gas. Eating well. Objective Exam Vital Signs Vital Sign - Last 12Hours 07/01/17 07/01/17 12:00 16:00 Temp 96.9 Pulse 63 Resp 18 B/P (MAP) 109/65 (80) Pulse Ox 94 O2 Delivery Room Air Capillary Refill : General Appearance: No Apparent Distress, WD/WN Respiratory: Lungs Clear, No Respiratory Distress Cardiovascular: Regular Rate, Rhythm, No Murmur Gastrointestinal: Normal Bowel Sounds, Non Tender, Soft Extremity: Non Tender, No Calf Tenderness Neurologic/Psychiatric: Alert, Oriented x3, Normal Mood/Affect Results/Procedures Lab Laboratory Tests 07/02/17 05:50 Assessment/Plan Assessment and Plan Assess & Plan/Chief Complaint rotator cuff insufficiency Diagnosis/Problems Diagnosis/Problems (1) Rotator cuff insufficiency of right shoulder Status: Chronic Assessment & Plan: s/p repair management per primary PT/OT (2) Essential (primary) hypertension Assessment & Plan: Cont home antihypertensives Well controlled (3) History of CVA (cerebrovascular accident) Status: Chronic Assessment & Plan: Cont Plavix (4) Hypothyroidism Assessment & Plan: On [place] Thyroid IGNACIO ESPINOSA MD Jul 02, 2017 12:31 pm
--- NOTE | 2017-07-02 12:55 | Progress Note (SOAP) ---
Subjective Date Seen by Provider: Jul 02, 2017 Time Seen by Provider: 12:53 Subjective/Events-last exam No complaints. She is doing well. She is hoping to go home soon. Pain controlled. eating and drinking well. Objective Exam Vital Signs Date Time Temp Pulse Resp B/P (MAP) Pulse Ox O2 Delivery O2 Flow Rate FiO2 07/02/17 09:00 97.1 07/02/17 08:00 97.1 74 18 135/60 (85) 99 Room Air 07/02/17 04:15 97.2 67 18 122/61 (81) 96 Room Air 07/02/17 00:00 96.2 57 19 118/56 (76) 93 Room Air 07/01/17 20:00 96.9 62 18 119/54 (75) 92 Room Air 07/01/17 16:00 96.0 84 18 112/56 (74) 96 Room Air I & O 07/02/17 07:00 Intake Total 3000 ml Output Total 2500 ml Balance 500 ml Capillary Refill : General Appearance: No Apparent Distress Neck: Non Tender, Supple Respiratory: No Accessory Muscle Use, No Respiratory Distress Cardiovascular: Regular Rate, Rhythm, No Edema, Normal Peripheral Pulses Peripheral Pulses: 2+ Radial Pulses (R) Gastrointestinal: non tender, soft Extremity: No Pedal Edema Neurologic/Psychiatric: Alert, Oriented x3, No Motor/Sensory Deficits, Normal Mood/Affect Skin: Normal Color, Warm/Dry (dressing to right shoulder CDI) Results Lab Laboratory Tests 07/02/17 05:50: White Blood Count 10.3, Red Blood Count 3.72L, Hemoglobin 11.2L, Hematocrit 34L , Mean Corpuscular Volume 91, Mean Corpuscular Hemoglobin 30, Mean Corpuscular Hemoglobin Concent 33, Red Cell Distribution Width 14.2, Platelet Count 206, Mean Platelet Volume 11.1H, Sodium Level 143, Potassium Level 3.9, Chloride Level 109H, Carbon Dioxide Level 25, Anion Gap 9, Blood Urea Nitrogen 12, Creatinine 0.63, Estimat Glomerular Filtration Rate > 60, BUN/Creatinine Ratio 19, Glucose Level 120H, Calcium Level 8.5 Assessment/Plan Assessment/Plan Assess & Plan/Chief Complaint A: s/p right RTSA P: Plan to DC to home tomorrow AM with follow up in 1-2 weeks. Clinical Quality Measures DVT/VTE Risk/Contraindication: Risk Factor Score Per Nursin RFS Level Per Nursing on Admit: 4+=Very High REGINALDO YANEZ APRN Jul 02, 2017 12:55 pm
[2017-07-02] MEDS ORDERED: HYDR-3820 PO (13:04)
[2017-07-02] MEDS ORDERED: SENN-20 PO (13:04)
[2017-07-02] MEDS ORDERED: ASPI-586 PO (13:04)
--- NOTE | 2017-07-02 13:07 | Discharge Inst-Simple/Standard ---
Discharge Inst-Standard Discharge Medications New, Converted or Re-Newed RX: RX on Chart Patient Instructions/Follow Up Plan of Care/Instructions/FU: f/u 1-2 weeks, refer to Dr. White total shoulder DC instructions for more information Activity as Tolerated: No Discharge Diet: No Restrictions REGINALDO YANEZ APRN Jul 02, 2017 1:06 pm
--- NOTE | 2017-07-02 14:17 | Anesthesia-General Post-Op ---
General Patient Condition Mental Status/LOC: Same as Preop Cardiovascular: Satisfactory Nausea/Vomiting: Absent Respiratory: Satisfactory Pain: Controlled Complications: Absent Post Op Complications Complications None Follow Up Care/Instructions Patient Instructions None needed. Anesthesia/Patient Condition Patient Condition Patient is doing well, no complaints, stable vital signs, no apparent adverse anesthesia problems. No complications reported per nursing. LUIS TOLEDO CRNA Jul 02, 2017 14:17
--- NOTE | 2017-07-02 15:31 | Occupational Therapy Eval ---
OT Evaluation-General/PLF Medical Diagnosis Admission Date Jul 01, 2017 at 06:00 Medical Diagnosis: rotator cuff surgery, right side Onset Date: Jul 01, 2017 Therapy Diagnosis Therapy Diagnosis: decr self care Height/Weight Height (Feet): 5 Height (Inches): 6.00 Weight (Pounds): 159 Weight (Ounces): 0.0 Precautions Precautions/Isolations: Standard Precautions Safety Interventions: None Referral Physician: Zaid Mcclendon APRN Referral Reason: Evaluation/Treatment Medical History Pertinent Medical History: Arthritis, CVA, HTN, Hypothroidism Additional Medical History Bilat TKR, bilat THR and 1 revision. Hx DVT. Three strokes. Kidney and bladder infections. hard of hearing. Chronic back pain. Chronic LE edema Current History Elective R reverse total shoulder for chronic rotator cuff arthropathy, surgery 07-01-17 Reviewed History: Yes Social History Home: Single Level Current Living Status: Alone Steps Into Home: 3 ADL-Prior Level of Function ADL PLOF Comments Pt reported that she was able to manage all of her basic ADLs and home care. She said that she had some LE weakness as residual from her strokes and used a grab bar when stepping in and out of the bathtub. DME/Equipment: Grab Bars, Tub/Shower OT Current Status Subjective Pt seen in room, up in bed, agreeable to OT. Pt reported pain 0/10 - she said that her shoulder hurt a little when she moved it but, after that, it was OK. Appearance Alert, cooperative Current Glasses/Contacts: Yes Hand Dominance: Right Upper Extremity ROM L UE grossly WFL Upper Extremity Strength L UE grossly WFL ADL-Treatment ADL-Current Pt reported that she is able to get herself out of bed and take herself to the bathroom (up ad yvan). She has a 4WW in her room that she can use if needed. She also said that she has been able to feed herself. She learned how to take sling off and put it back on from the nurses. Functional Henderson Measure 0=Not Assessed/NA 4=Minimal Assistance 1=Total Assistance 5=Supervision or Setup 2=Maximal Assistance 6=Modified Henderson 3=Moderate Assistance 7=Complete IndependenceIRFPAI Quality Coding Scale 6 Independent with activity with or without an assistive device 5 Patient requires set up or clean up by helper. Patient completes activity by themselves 4 Supervision or touching assist (CGA). [place] provide cues , steadying assist 3 The helper provides less than half the effort to complete the activity 2 The helper provides more than half the effort to complete the activity 1 Dependent. The helper does all the effort to complete an activity 7 Patient refused to complete or attempt activity 9 The patient did not perform the activity before the current illness or injury 88 Not attempted due to Medical conditions or safety concerns Pt education on modified techniques for bathing, dressing, using gravity as assist. Pt encouraged to do these while sitting since she reported that she has some LE weakness if she stands too long. Pt education on having someone with her if she gets in/out of bathtub since she won't have two hands available to help with transfer. Pt verbalized understanding of modified techniques and mentioned dusters that she will wear since they will be easy to don. Pt had no concerns about caring for herself at discharge. Pt left up in bed, all needs met. Education OT Patient Education: Modified ADL techniques, Purpose of tx/functional activities, Rehab process, Safety issues, Transfer techniques Teaching Recipient: Patient Teaching Methods: Discussion Response to Teaching: Verbalize Understanding OT Short Term Goals Short Term Goals 1=Demonstrate adherence to instructed precautions during ADL tasks. 2=Patient will verbalize/demonstrate understanding of assistive devices/ modifications for ADL. 3=Patient will improve strength/tolerance for activity to enable patient to perform ADL's. OT Fci Goals Fci Goals Time Frame: Jul 02, 2017 Additional Goals: 1-Demonstrate ADL Tasks (met), 2-Verbalize Understanding (met ) 1=Demonstrate adherence to instructed precautions during ADL tasks. 2=Patient will verbalize/demonstrate understanding of assistive devices/ modifications for ADL. OT Education/Plan Problem List/Assessment Assessment: Impaired Self-Care Skills Pt would benefit from skilled OT to increase her independence in basic self car to allow her to safely return home after total shoulder replacement. Discharge Recommendations Plan/Recommendations: Discharge/Goals Met Treatment Plan/Plan of Care Treatment,Training & Education: Yes Patient would benefit from OT for education, treatment and training to promote independence in ADL's, mobility, safety and/or upper extremity function for ADL' s. Plan of Care: ADL Retraining Treatment Duration: Jul 02, 2017 Frequency: 1 time per week Estimated Hrs Per Day: .25 hour per day Agreement: Yes Rehab Potential: Good Time/GCodes Start Time: 11:35 Stop Time: 11:57 Total Time Billed (hr/min): 22 Billed Treatment Time visit, evaluation low intensity 10 minutes, ADL 12 minutes EASTON MARIA OT Jul 02, 2017 15:31
[2017-07-02] MEDS: HYDROcodone/APAP 10 MG/325 MG (LORTAB) TAB PO PRN ×2 (15:35→15:42)
[2017-07-02 16:00] VITALS: BP 147/70
[2017-07-02] MEDS: ASPIRIN E.C. 81 MG (ECOTRIN) TAB PO SCH (17:09)
[2017-07-02] MEDS: amLODIPine 10 MG (NORVASC) TAB PO SCH (17:10)
[2017-07-02] MEDS: CLOPIDOGREL 75 MG (PLAVIX) TABLET PO SCH (17:11)
[2017-07-02 20:26] VITALS: BP 137/70
[2017-07-03] VITALS: BP 142/68
[2017-07-03] MEDS: THYROID 1 GRAIN (60 - 65 MG) TABLET PO SCH (06:09)
[2017-07-03 07:04] LABS: MEAN PLATELET VOLUME 11.4 FL (7.4-10.4); RED BLOOD COUNT 3.88 10^6/uL (4.35-5.85); RED CELL DISTRIBUTION WIDTH 14.6 % (10.0-14.5); WHITE BLOOD COUNT 9.6 10^3/uL (4.3-11.0)
[2017-07-03 07:11] LABS: ANION GAP 12 MMOL/L (5-14); BLOOD UREA NITROGEN 12 MG/DL (7-18); BUN/CREATININE RATIO 19; CALCIUM 8.9 MG/DL (8.5-10.1); CARBON DIOXIDE 24 MMOL/L (21-32); CHLORIDE 105 MMOL/L (98-107); CREATININE SERUM 0.63 MG/DL (0.60-1.30); GFR ESTIMATED > 60; GLUCOSE 91 MG/DL (70-105); SODIUM 141 MMOL/L (135-145)
--- NOTE | 2017-07-03 07:24 | Progress Note (SOAP) ---
Subjective Date Seen by Provider: Jul 03, 2017 Time Seen by Provider: 07:22 Subjective/Events-last exam No complaints. pain controlled. ambulating well. No nausea. She verbalizes wanting to go home Objective Exam Vital Signs Date Time Temp Pulse Resp B/P (MAP) Pulse Ox O2 Delivery O2 Flow Rate FiO2 07/03/17 00:00 97.2 79 19 142/68 (92) 97 Room Air 07/02/17 20:26 98.2 89 18 137/70 (92) 98 Room Air 07/02/17 16:15 98.5 07/02/17 16:00 98.5 90 20 147/70 (95) 97 Room Air 07/02/17 15:42 97.1 07/02/17 15:35 97.1 07/02/17 09:00 97.1 07/02/17 08:00 97.1 74 18 135/60 (85) 99 Room Air I & O 07/03/17 07:00 Intake Total 3090 ml Output Total 3350 ml Balance -260 ml Capillary Refill : General Appearance: No Apparent Distress Respiratory: Lungs Clear, Normal Breath Sounds, No Accessory Muscle Use, No Respiratory Distress Cardiovascular: No Edema Gastrointestinal: non tender, soft Extremity: Normal Capillary Refill, No Calf Tenderness, No Pedal Edema Neurologic/Psychiatric: Alert, Oriented x3, No Motor/Sensory Deficits, Normal Mood/Affect Skin: Normal Color, Warm/Dry (dressing to right shoulder CDI) Results Lab Laboratory Tests 07/03/17 06:37: White Blood Count 9.6, Red Blood Count 3.88L, Hemoglobin 11.8, Hematocrit 35, Mean Corpuscular Volume 91, Mean Corpuscular Hemoglobin 30, Mean Corpuscular Hemoglobin Concent 33, Red Cell Distribution Width 14.6H, Platelet Count 209, Mean Platelet Volume 11.4H, Sodium Level 141, Potassium Level 4.0, Chloride Level 105, Carbon Dioxide Level 24, Anion Gap 12, Blood Urea Nitrogen 12, Creatinine 0.63, Estimat Glomerular Filtration Rate > 60, BUN/Creatinine Ratio 19, Glucose Level 91, Calcium Level 8.9 Assessment/Plan Assessment/Plan Assess & Plan/Chief Complaint A: s/p right RTSA P: DC to home today with follow up in 1 week at [place] office to remove isma. Clinical Quality Measures DVT/VTE Risk/Contraindication: Risk Factor Score Per Nursin RFS Level Per Nursing on Admit: 4+=Very High REGINALDO YANEZ APRN Jul 03, 2017 7:24 am
[2017-07-03 08:30] VITALS: BP 146/75
[2017-07-03] MEDS: ASPIRIN E.C. 81 MG (ECOTRIN) TAB PO SCH (08:40)
[2017-07-03] MEDS: amLODIPine 10 MG (NORVASC) TAB PO SCH (08:40)
[2017-07-03] MEDS: MELOXICAM 7.5 MG (MOBIC) TABLET PO SCH (08:40)
[2017-07-03] MEDS: SENNA W/DOCUSATE (SENOKOT S) TABLET PO SCH (08:41)
[2017-07-03] MEDS: ENALAPRIL 10 MG (VASOTEC) TAB PO SCH (08:41)
[2017-07-03] MEDS: CLOPIDOGREL 75 MG (PLAVIX) TABLET PO SCH (08:42)
--- NOTE | 2017-07-04 12:49 | Discharge Summary ---
Diagnosis/Chief Complaint Date of Admission Jul 01, 2017 at 06:00 Date of Discharge Jul 03, 2017 at 10:00 Discharge Date: Jul 03, 2017 Discharge Time: 0700 Admission Diagnosis Admission Diagnosis Rotator cuff arthropathy right shoulder Primary osteoarthritis right shoulder Chronic full thickness rotator cuff tendon tear right shoulder Discharge Diagnosis Rotator cuff arthropathy right shoulder Primary osteoarthritis right shoulder Chronic full thickness rotator cuff tendon tear right shoulder S/P right reverse total shoulder arthroplasty Reason Hospital Visit Scheduled right RTSA Discharge Summary Procedures: Right reverse total shoulder arthroplasty Consultations Internal medicine Discharge Physical Examination Allergies: Coded Allergies: morphine (Verified Adverse Reaction, Mild, "MAKES ME CRAZY", TAKES LORTAB AT HOME, 01/26/15) Vitals & I&Os Vital Signs Date Time Temp Pulse Resp B/P (MAP) Pulse Ox O2 Delivery O2 Flow Rate FiO2 07/03/17 08:30 97.3 82 20 146/75 (98) 96 Room Air General Appearance: Oriented X3 HEENT: PERRLA Respiratory: Clear to Auscultation Cardiovascular: Regular Rate Abdominal: Normal Bowel Sounds, Soft, No Tenderness Extremities: No Clubbing, No Cyanosis, No Edema, Normal Pulses Skin: No Rashes, No Breakdown Neuro: Normal Gait, Normal Speech Psych/Mental Status: Mental Status NL Hospital Course The patient was seen in the clinic setting and had failed conservative treatment from Primary OA with rotator cuff arthropathy of her right shoulder. On the date of admission she was taken to the OR where the above procedure was performed without complications. She was admitted for DVT prophylaxis, monitoring of labs, as well as antibiotic prophylaxis. Overall she recovered well and her hospital stay was uneventful. She was discharged to home on POD #2. Discharge Condition at discharge good Instructions to patient/family Please see electronic discharge instructions given to patient. Discharge Medications Reviewed and agree with Discharge Medication list on patient's Discharge Instruction sheet Clinical Quality Measures DVT/VTE Risk/Contraindication: Risk Factor Score Per Nursin RFS Level Per Nursing on Admit: 4+=Very High REGINALDO YANEZ [employer]ER Jul 04, 2017 12:49
== END 2017-07-03 10:00 | disposition home or self-care (01) | DRG 483 ==
LOC: SURGICAL 06:00 → SURG 06:01 → 4TH 11:13
PROVIDERS: ADMIT Orthopaedic Surgery; ATTEND Orthopaedic Surgery
PROC: 3E0T3BZ Introduction of Anesthetic Agent into Peripheral Nerves and Plexi, Percutaneous Approach (ICD-10-PCS; 2017-07-01)
PROC: 0RRJ00Z Replacement of Right Shoulder Joint with Reverse Ball and Socket Synthetic Substitute, Open Approach (ICD-10-PCS; principal; 2017-07-01 07:56)
DX: M19.011 Primary osteoarthritis, right shoulder (principal); M75.121 Complete rotator cuff tear or rupture of right shoulder, not specified as traumatic; I10 Essential (primary) hypertension; E03.9 Hypothyroidism, unspecified; M54.9 Dorsalgia, unspecified; H91.90 Unspecified hearing loss, unspecified ear; Z86.73 Personal history of transient ischemic attack (TIA), and cerebral infarction without residual deficits; Z86.718 Personal history of other venous thrombosis and embolism; Z79.02 Long term (current) use of antithrombotics/antiplatelets; Z96.653 Presence of artificial knee joint, bilateral; Z96.642 Presence of left artificial hip joint
CPT/HCPCS: 36415; 73030; 80048; 85027

== ENCOUNTER → 2017-12-09 | Outpatient (CLI) | payer MEDICARE, OTHER ==
[~2017-12-09] MED LIST changes: +HYDR-3820 PO; +SENN-20 PO
== END ==
LOC: LAB 07:39
PROVIDERS: ATTEND Nurse Practitioner Family
DX: E03.8 Other specified hypothyroidism (principal); E78.2 Mixed hyperlipidemia; Z86.73 Personal history of transient ischemic attack (TIA), and cerebral infarction without residual deficits
CPT/HCPCS: 36415; 80061; 84443

== ENCOUNTER 2018-11-22 19:23 | Emergency (ER) | payer MEDICARE, OTHER ==
[~2018-11-22] VITALS: Ht 167.6 cm; Wt 74.4 kg
[~2018-11-22 19:23] MED LIST changes: -AMLO10TA2 PO; +AMLO10TA7 PO; +HYDR-4226 PO; -HYDR-757 PO; -OXYC-197 PO; +OXYC1TAB87 PO
--- OUTSIDE RECORDS SUMMARY | 2018-11-22 19:33 | XMS REPORT | Continuity of Care Document ---
Author Organization Unknown Address Unknown Allergies Active Description Code Type Severity Reaction Onset Reported/Identified Relationship to Patient Clinical Status Yes morphine [id number] Drug Allergy Unknown N/A 12/19/2013 Yes morphine [id number] Drug Allergy Mild "MAKES ME CRAZY 01/26/2015 Medications There is no data. 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 02/25/2013 ADRIAN PACHECO DO Ot V58.69 OTH MED,LT,CURRENT USE 12/23/2013 WILLY UMANZOR MD R Ot 401.9 HYPERTENSION NOS 12/23/2013 WILLY UMANZOR MD R Ot 434.91 CEREBRAL ART OCCLUSION NOS W CEREBRAL IN 12/23/2013 WILLY UMANZOR MD R Ot 599.0 URIN TRACT INFECTION NOS 12/23/2013 WILLY UMANZOR MD R Ot 729.81 SWELLING OF LIMB 12/23/2013 WILLY UMANZOR MD R Ot V43.64 HIP JOINT REPLACEMENT STATUS 12/23/2013 WILLY UMANZOR MD R Ot V43.65 KNEE JOINT REPLACEMENT STATUS 01/09/2014 DION CHAVIRA APRN Ot 244.9 HYPOTHYROIDISM NOS 01/09/2014 DION CHAVIRA APRN Ot 716.90 ARTHROPATHY NOS-UNSPEC 01/09/2014 CHAVIRA, PETER J FILM DEVELOPER Ot 719.45 JOINT PAIN-PELVIS 01/09/2014 DION CHAVIRA FILM DEVELOPER Ot V12.54 PERSONAL HX OF TIA, CEREBRAL INFARCTION 01/09/2014 DION CHAVIRA FILM DEVELOPER Ot 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 JOINT REPLACEMENT STATUS 01/09/2014 DION CHAVIRA FILM DEVELOPER Ot 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 JOINT REPLACEMENT STATUS 01/09/2014 DION CHAVIRA FILM DEVELOPER Ot V58.63 LONG-TERM(CURRENT)USE OF ANTIPLATELET/AN 01/09/2014 DION CHAVIRA FILM DEVELOPER Ot V58.69 OTH MED,LT,CURRENT USE 07/04/2014 Ot 244.9 07/04/2014 Ot 401.1 07/04/2014 Ot 244.9 07/04/2014 Ot 433.30 07/04/2014 Ot 780.2 07/04/2014 Ot 780.4 07/04/2014 Ot 780.79 07/04/2014 Ot 272.4 07/04/2014 Ot 780.2 07/04/2014 Ot 780.4 07/04/2014 Ot 780.79 07/04/2014 Ot 244.9 07/04/2014 Ot 719.45 07/04/2014 Ot V43.64 07/04/2014 Ot 718.35 07/04/2014 Ot 791.9 07/04/2014 Ot V57.1 07/04/2014 Ot V72.63 07/04/2014 Ot V74.8 07/04/2014 Ot 244.9 07/04/2014 Ot 244.9 07/11/2014 NOÉ ROBLES, WILLY R Ot 244.9 08/02/2014 NOÉ ROBLES, WILLY R Ot 244.9 08/17/2014 NOÉ ROBLES, WILLY R Ot 729.81 08/17/2014 NOÉ ROBLES, WILLY R Ot 785.9 08/17/2014 NOÉ ROBLES, WILLY R Ot 729.81 08/17/2014 NOÉ ROBLES, WILLY R Ot 785.9 08/17/2014 NOÉ ROBLES, WILLY R Ot 729.81 08/17/2014 NOÉ ROBLES, WILLY R Ot 785.9 08/24/2014 NOÉ ROBLES, WILLY R Ot 729.81 08/24/2014 NOÉ ROBLES, WILLY R Ot 785.9 09/07/2014 NOÉ ROBLES, WILLY R Ot 729.81 09/07/2014 NOÉ ROBLES, WILLY R Ot 785.9 10/10/2014 Ot 780.79 10/10/2014 Ot 786.05 10/13/2014 Ot 780.79 10/13/2014 Ot 786.05 12/07/2014 Ot 780.79 12/07/2014 Ot 786.05 01/04/2015 NOÉ ROBLES, WILLY R Ot 959.6 01/04/2015 NOÉ ROBLES, WILLY R Ot E849.0 01/04/2015 NOÉ ROBLES, WILLY R Ot E888.9 01/23/2015 NOÉ ROBLES, WILLY R Ot 729.81 01/23/2015 NOÉ ROBLES, WILLY R Ot 785.9 01/23/2015 Ot 780.79 01/23/2015 Ot 786.05 01/23/2015 NOÉ ROBLES, WILLY R Ot 959.6 01/23/2015 NOÉ ROBLES, WILLY R Ot E849.0 01/23/2015 NOÉ ROBLES, WILLY R Ot E888.9 01/23/2015 MARYANNE ROBLES, MONSERRAT T Ot 401.9 HYPERTENSION NOS 01/23/2015 MARYANNE ROBLES, MONSERRAT T Ot 599.0 URIN TRACT INFECTION NOS 01/23/2015 MARYANNE ROBLES, MONSERRAT T Ot 724.2 LUMBAGO 01/23/2015 MARYANNE ROBLES, MONSERRAT T Ot 784.0 HEADACHE 01/23/2015 MARYANNE ROBLES, MONSERRAT T Ot 787.01 NAUSEA WITH VOMITING 01/23/2015 NOÉ ROBLES, WILLY R Ot 729.81 01/23/2015 NOÉ ROBLES, WILLY R Ot 785.9 01/23/2015 Ot 780.79 01/23/2015 Ot 786.05 01/23/2015 NOÉ ROBLES, WILLY R Ot 959.6 01/23/2015 NOÉ ROBLES, WILLY R Ot E849.0 01/23/2015 NOÉ ROBLES, WILLY R Ot E888.9 01/23/2015 NOÉ ROBLES, WILLY R Ot 729.81 01/23/2015 NOÉ ROBLES, WILLY R Ot 785.9 01/23/2015 Ot 780.79 01/23/2015 Ot 786.05 01/23/2015 NOÉ ROBLES, WILLY R Ot 959.6 01/23/2015 NOÉ ROBLES, WILLY R Ot E849.0 01/23/2015 NOÉ ROBLES, WILLY R Ot E888.9 01/24/2015 NOÉ ROBLES, WILLY R Ot 959.6 01/24/2015 NOÉ ROBLES, WILLY R Ot E849.0 01/24/2015 NOÉ ROBLES, WILLY R Ot E888.9 01/25/2015 Ot 401.1 01/25/2015 Ot 244.9 01/25/2015 Ot 433.30 01/25/2015 Ot 780.2 01/25/2015 Ot 780.4 01/25/2015 Ot 780.79 01/25/2015 Ot 272.4 01/25/2015 Ot 780.2 01/25/2015 Ot 780.4 01/25/2015 Ot 780.79 01/25/2015 Ot 244.9 01/25/2015 Ot 719.45 01/25/2015 Ot V43.64 01/25/2015 Ot 718.35 01/25/2015 Ot 791.9 01/25/2015 Ot V57.1 01/25/2015 Ot V72.63 01/25/2015 Ot V74.8 01/25/2015 Ot 244.9 01/25/2015 Ot 244.9 01/25/2015 NOÉ ROBLES, WILLY R Ot 244.9 01/25/2015 NOÉ ROBLES, WILLY R Ot 729.81 01/25/2015 NOÉ ROBLES, WILLY R Ot 785.9 01/25/2015 Ot 780.79 01/25/2015 Ot 786.05 01/25/2015 NOÉ ROBLES, WILLY R Ot 959.6 01/25/2015 NOÉ ROBLES, WILLY R Ot E849.0 01/25/2015 NOÉ ROBLES, WILLY R Ot E888.9 01/29/2015 NOÉ ROBLES, WILLY R Ot 041.49 OTHER AND UNSPECIFIED ESCHERICHIA COLI [ 01/29/2015 NOÉ ROBLES, WILLY R Ot 244.9 HYPOTHYROIDISM NOS 01/29/2015 NOÉ ROBLES, WILLY R Ot 599.0 URIN TRACT INFECTION NOS 01/29/2015 NOÉ ROBLES, WILLY R Ot 719.45 JOINT PAIN-PELVIS 01/29/2015 NOÉ ROBLES, WILLY R Ot 780.79 OTH MALAISE FATIGUE 01/29/2015 NOÉ ROBLES, WILLY R Ot V12.54 PERSONAL HX OF TIA, CEREBRAL INFARCTION 02/11/2015 JUNIOR COTTRELL ADRIAN K Ot 453.41 ACUTE VENOUS EMBOLISM THROMBOSIS DEEP 02/11/2015 JUNIOR COTTRELL ADRIAN K Ot 729.5 PAIN IN LIMB 02/17/2015 MONSERRAT MADDEN MD Ot 453.41 ACUTE VENOUS EMBOLISM THROMBOSIS DEEP 02/17/2015 MARYANNE ROBLES, MONSERRAT Grajeda Ot 729.81 SWELLING OF LIMB 02/17/2015 MARYANNE ROBLES, MONSERRAT Grajeda Ot 787.02 NAUSEA ALONE 02/17/2015 MONSERRAT MADDEN MD Ot V58.61 ANTICOAGULANTS,LT,CURRENT USE 02/17/2015 MONSERRAT MADDEN MD Ot V58.69 OTH MED,LT,CURRENT USE 02/17/2015 NOÉ ROBLES, WILLY R Ot 729.81 02/17/2015 NOÉ ROBLES, WILLY R Ot 785.9 02/17/2015 Ot 780.79 02/17/2015 Ot 786.05 02/17/2015 NOÉ ROBLES, WILLY R Ot 959.6 02/17/2015 NOÉ ROBLES, WILLY R Ot E849.0 02/17/2015 NOÉ ROBLES, WILLY R Ot E888.9 07/25/2015 Ot 401.1 07/25/2015 Ot 244.9 07/25/2015 Ot 433.30 07/25/2015 Ot 780.2 07/25/2015 Ot 780.4 07/25/2015 Ot 780.79 07/25/2015 Ot 272.4 07/25/2015 Ot 780.2 07/25/2015 Ot 780.4 07/25/2015 Ot 780.79 07/25/2015 Ot 244.9 07/25/2015 Ot 719.45 07/25/2015 Ot V43.64 07/25/2015 Ot 718.35 07/25/2015 Ot 791.9 07/25/2015 Ot V57.1 07/25/2015 Ot V72.63 07/25/2015 Ot V74.8 07/25/2015 Ot 244.9 07/25/2015 Ot 244.9 07/25/2015 NOÉ ROBELS, WILLY R Ot 244.9 07/25/2015 NOÉ ROBLES, WILLY R Ot 729.81 07/25/2015 NOÉ ROBLES, WILLY R Ot 785.9 07/25/2015 Ot 780.79 07/25/2015 Ot 786.05 07/25/2015 NOÉ ROBLES, WILLY R Ot 959.6 07/25/2015 NOÉ ROBLES, WLILY R Ot E849.0 07/25/2015 NOÉ ROBLES, WILLY R Ot E888.9 07/25/2015 IVA BOND DO Ot N39.0 URINARY TRACT INFECTION, SITE NOT SPECIF 07/25/2015 IVA BOND DO Ot R11.0 NAUSEA 07/25/2015 IVA BOND DO Ot R42 DIZZINESS AND GIDDINESS 07/25/2015 IVA BOND DO Ot R51 HEADACHE 07/25/2015 Ot 401.1 07/25/2015 Ot 244.9 07/25/2015 Ot 433.30 07/25/2015 Ot 780.2 07/25/2015 Ot 780.4 07/25/2015 Ot 780.79 07/25/2015 Ot 272.4 07/25/2015 Ot 780.2 07/25/2015 Ot 780.4 07/25/2015 Ot 780.79 07/25/2015 Ot 244.9 07/25/2015 Ot 719.45 07/25/2015 Ot V43.64 07/25/2015 Ot 718.35 07/25/2015 Ot 791.9 07/25/2015 Ot V57.1 07/25/2015 Ot V72.63 07/25/2015 Ot V74.8 07/25/2015 Ot 244.9 07/25/2015 Ot 244.9 07/25/2015 NOÉ ROBLES, WILLY R Ot 244.9 07/25/2015 NOÉ ROBLES, WILLY R Ot 729.81 07/25/2015 NOÉ ROBLES, WILLY R Ot 785.9 07/25/2015 Ot 780.79 07/25/2015 Ot 786.05 07/25/2015 NOÉ ROBLES, WILLY R Ot 959.6 07/25/2015 NOÉ ROBLES, WILLY R Ot E849.0 07/25/2015 NOÉ ROBLES, WILLY R Ot E888.9 08/31/2015 NOÉ ROBLES, WILLY R Ot E03.9 08/31/2015 NOÉ ROBLES, WILLY R Ot I10 08/31/2015 NOÉ ROBLES, WILLY R Ot I63.50 08/31/2015 NOÉ ROBLES, WILLY R Ot R29.810 08/31/2015 NOÉ ROBLES, WILLY R Ot R47.1 08/31/2015 NOÉ ROBLES, WILLY R Ot R49.0 08/31/2015 NOÉ ROBLES, WILLY R Ot Z86.718 08/31/2015 NOÉ ROBLES, WILLY R Ot Z86.73 08/31/2015 NOÉ ROBLES, WILLY R Ot E03.9 08/31/2015 NOÉ ROBLES, WILLY R Ot I10 08/31/2015 NOÉ ROBLES, WILLY R Ot I63.50 08/31/2015 NOÉ ROBLES, WILLY R Ot R29.810 08/31/2015 NOÉ ROBLES, WILLY R Ot R47.1 08/31/2015 NOÉ ROBLES, WILLY R Ot R49.0 08/31/2015 NOÉ ROBLES, WILLY R Ot Z86.718 08/31/2015 NOÉ ROBLES, WILLY R Ot Z86.73 09/01/2015 NOÉ ROBLES, WILLY R Ot E03.9 09/01/2015 NOÉ ROBLES, WILLY R Ot I10 09/01/2015 NOÉ ROBLES, WILLY R Ot I63.50 09/01/2015 NOÉ ROBLES, WILLY R Ot R29.810 09/01/2015 NOÉ ROBLES, WILLY R Ot R47.1 09/01/2015 NOÉ ROBLES, WILLY R Ot R49.0 09/01/2015 NOÉ ROBLES, WILLY R Ot Z86.718 09/01/2015 NOÉ ROBLES, WILLY R Ot Z86.73 09/01/2015 WILLY UMANZOR MD Ot E03.9 HYPOTHYROIDISM, UNSPECIFIED 09/01/2015 WILLY UMANZOR MD Ot I10 ESSENTIAL (PRIMARY) HYPERTENSION 09/01/2015 WILLY UMANZOR MD Ot 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 09/01/2015 WILLY UMANZOR MD Ot I82.812 EMBOLISM AND THROMBOSIS OF SUPERFIC VEIN 09/01/2015 WILLY UMANZOR MD Ot R29.810 FACIAL WEAKNESS 09/01/2015 WILLY UMANZOR MD Ot R47.1 DYSARTHRIA AND ANARTHRIA 09/01/2015 WILLY UMANZOR MD, Ot R49.0 DYSPHONIA 09/01/2015 WILLY UMANZOR MD Ot Z86.718 PERSONAL HISTORY OF OTHER VENOUS THROMBO 09/01/2015 WILLY UMANZOR MD Ot Z86.73 PRSNL HX OF TIA (TIA), AND CEREB INFRC W 10/25/2015 IVA BOND DO Ot N39.0 10/25/2015 IVA BOND DO Ot R11.0 10/25/2015 IVA BOND DO Ot R42 10/25/2015 IVA BOND DO Ot R51 11/08/2015 IVA BOND DO, Ot N39.0 URINARY TRACT INFECTION, SITE NOT SPECIF 11/08/2015 IVA BOND DO Ot R11.0 NAUSEA 11/08/2015 IVA BOND DO Ot R42 DIZZINESS AND GIDDINESS 11/08/2015 IVA BOND DO Ot R51 HEADACHE 11/17/2015 Ot 244.9 HYPOTHYROIDISM NOS 11/17/2015 Ot 433.30 MULT BILTRAL ARTERY OCCLUSION WO CEREBRA 11/17/2015 Ot 780.2 SYNCOPE AND COLLAPSE 11/17/2015 Ot 780.4 DIZZINESS AND GIDDINESS 11/17/2015 Ot 780.79 OTH MALAISE FATIGUE 11/17/2015 Ot 272.4 HYPERLIPIDEMIA NEC/NOS 11/17/2015 Ot 780.2 SYNCOPE AND COLLAPSE 11/17/2015 Ot 780.4 DIZZINESS AND GIDDINESS 11/17/2015 Ot 780.79 OTH MALAISE FATIGUE 11/17/2015 Ot 244.9 HYPOTHYROIDISM NOS 11/17/2015 Ot 719.45 JOINT PAIN- PELVIS 11/17/2015 Ot V43.64 HIP JOINT REPLACEMENT STATUS 11/17/2015 Ot 718.35 RECUR DISLOCAT-PELVIS 11/17/2015 Ot 791.9 ABN URINE FINDINGS NEC 11/17/2015 Ot V57.1 PHYSICAL THERAPY NEC 11/17/2015 Ot V72.63 PRE- PROCEDURAL LABORATORY EXAMINATION 11/17/2015 Ot V74.8 SCREEN- BACTERIAL DIS NEC 11/17/2015 Ot 244.9 HYPOTHYROIDISM NOS 11/17/2015 Ot 244.9 HYPOTHYROIDISM NOS 11/17/2015 NOÉ ROBLES, WILLY R Ot 244.9 HYPOTHYROIDISM NOS 11/17/2015 NOÉ ROBLES, WILLY R Ot 729.81 SWELLING OF LIMB 11/17/2015 WILLY UMANZOR MD Ot 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 SYMP NEC 11/17/2015 Ot 780.79 OTH MALAISE FATIGUE 11/17/2015 Ot 786.05 SHORTNESS OF BREATH 11/17/2015 WILLY UMANZOR MD Ot 959.6 HIP THIGH INJURY NOS 11/17/2015 WILLY UMANZOR MD R Ot E849.0 ACCIDENT IN HOME 11/17/2015 WILLY UMANZOR MD Ot E888.9 FALL NOS 11/20/2015 WILLY UMANZOR MD R Ot G50.1 ATYPICAL FACIAL PAIN 11/20/2015 WILLY UMANZOR MD R Ot G50.1 ATYPICAL FACIAL PAIN 11/20/2015 WILLY UMANZOR MD R Ot M19.90 UNSPECIFIED OSTEOARTHRITIS, UNSPECIFIED 11/22/2015 Ot 244.9 HYPOTHYROIDISM NOS 11/22/2015 Ot 433.30 MULT BILTRAL ARTERY OCCLUSION WO CEREBRA 11/22/2015 Ot 780.2 SYNCOPE AND COLLAPSE 11/22/2015 Ot 780.4 DIZZINESS AND GIDDINESS 11/22/2015 Ot 780.79 OTH MALAISE FATIGUE 11/22/2015 Ot 272.4 HYPERLIPIDEMIA NEC/NOS 11/22/2015 Ot 780.2 SYNCOPE AND COLLAPSE 11/22/2015 Ot 780.4 DIZZINESS AND GIDDINESS 11/22/2015 Ot 780.79 OTH MALAISE FATIGUE 11/22/2015 Ot 244.9 HYPOTHYROIDISM NOS 11/22/2015 Ot 719.45 JOINT PAIN- PELVIS 11/22/2015 Ot V43.64 HIP JOINT REPLACEMENT STATUS 11/22/2015 Ot 718.35 RECUR DISLOCAT-PELVIS 11/22/2015 Ot 791.9 ABN URINE FINDINGS NEC 11/22/2015 Ot V57.1 PHYSICAL THERAPY NEC 11/22/2015 Ot V72.63 PRE- PROCEDURAL LABORATORY EXAMINATION 11/22/2015 Ot V74.8 SCREEN- BACTERIAL DIS NEC 11/22/2015 Ot 244.9 HYPOTHYROIDISM NOS 11/22/2015 Ot 244.9 HYPOTHYROIDISM NOS 11/22/2015 WILLY UMANZOR MD Ot 244.9 HYPOTHYROIDISM NOS 11/22/2015 NOÉ ROBLES, WILLY R Ot 729.81 SWELLING OF LIMB 11/22/2015 WILLY UMANZOR MD Ot 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 SYMP NEC 11/22/2015 Ot 780.79 OTH MALAISE FATIGUE 11/22/2015 Ot 786.05 SHORTNESS OF BREATH 11/22/2015 WILLY UMANZOR MD Ot 959.6 HIP THIGH INJURY NOS 11/22/2015 WILLY UMANZOR MD Ot E849.0 ACCIDENT IN HOME 11/22/2015 WILLY UMANZOR MD R Ot E888.9 FALL NOS 11/22/2015 WILLY UMANZOR MD Ot G50.1 ATYPICAL FACIAL PAIN 11/22/2015 WILLY UMANZOR MD R Ot M19.90 UNSPECIFIED OSTEOARTHRITIS, UNSPECIFIED 12/07/2015 WILLY UMANZOR MD R Ot G50.1 ATYPICAL FACIAL PAIN 12/07/2015 WILLY UMANZOR MD Ot M19.90 UNSPECIFIED OSTEOARTHRITIS, UNSPECIFIED 01/09/2016 WILLY UMANZOR MD R Ot G50.1 ATYPICAL FACIAL PAIN 01/09/2016 WILLY UMANZOR MD R Ot M19.90 UNSPECIFIED OSTEOARTHRITIS, UNSPECIFIED 01/22/2016 Ot 244.9 HYPOTHYROIDISM NOS 01/22/2016 Ot 433.30 MULT BILTRAL ARTERY OCCLUSION WO CEREBRA 01/22/2016 Ot 780.2 SYNCOPE AND COLLAPSE 01/22/2016 Ot 780.4 DIZZINESS AND GIDDINESS 01/22/2016 Ot 780.79 OTH MALAISE FATIGUE 01/22/2016 Ot 272.4 HYPERLIPIDEMIA NEC/NOS 01/22/2016 Ot 780.2 SYNCOPE AND COLLAPSE 01/22/2016 Ot 780.4 DIZZINESS AND GIDDINESS 01/22/2016 Ot 780.79 OTH MALAISE FATIGUE 01/22/2016 Ot 244.9 HYPOTHYROIDISM NOS 01/22/2016 Ot 719.45 JOINT PAIN- PELVIS 01/22/2016 Ot V43.64 HIP JOINT REPLACEMENT STATUS 01/22/2016 Ot 718.35 RECUR DISLOCAT-PELVIS 01/22/2016 Ot 791.9 ABN URINE FINDINGS NEC 01/22/2016 Ot V57.1 PHYSICAL THERAPY NEC 01/22/2016 Ot V72.63 PRE- PROCEDURAL LABORATORY EXAMINATION 01/22/2016 Ot V74.8 SCREEN- BACTERIAL DIS NEC 01/22/2016 Ot 244.9 HYPOTHYROIDISM NOS 01/22/2016 Ot 244.9 HYPOTHYROIDISM NOS 01/22/2016 NOÉ ROBLES, WILLY R Ot 244.9 HYPOTHYROIDISM NOS 01/22/2016 NOÉ ROBLES, WILLY R Ot 729.81 SWELLING OF LIMB 01/22/2016 NOÉ ROBLES, WILLY R Ot 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 SYMP NEC 01/22/2016 Ot 780.79 OTH MALAISE FATIGUE 01/22/2016 Ot 786.05 SHORTNESS OF BREATH 01/22/2016 NOÉ ROBLES, WILLY R Ot 959.6 HIP THIGH INJURY NOS 01/22/2016 NOÉ ROBLES, WILLY R Ot E849.0 ACCIDENT IN HOME 01/22/2016 NOÉ ROBLES, WILLY R Ot E888.9 FALL NOS 01/22/2016 NOÉ ROBLES, WILLY R Ot G50.1 ATYPICAL FACIAL PAIN 01/22/2016 NOÉ ROBLES, WILLY R Ot M19.90 UNSPECIFIED OSTEOARTHRITIS, UNSPECIFIED 01/24/2016 WILLY UMANZOR MD R Ot E03.9 HYPOTHYROIDISM, UNSPECIFIED 01/24/2016 NOÉ ROBLES, WILLY R Ot M25.552 PAIN IN LEFT HIP 01/24/2016 WILLY UMANZOR MD R Ot M54.16 RADICULOPATHY, LUMBAR REGION 01/24/2016 WILLY UMANZOR MD R Ot M25.552 PAIN IN LEFT HIP 01/24/2016 NOÉ ROBLES WILLY R Ot M54.16 RADICULOPATHY, LUMBAR REGION 02/12/2016 MARYANNE ROBLES, MONSERART T Ot 401.9 HYPERTENSION NOS 02/12/2016 MARYANNE ROBLES, MONSERRAT T Ot 599.0 URIN TRACT INFECTION NOS 02/12/2016 MARYANNE ROBLES, MONSERRAT Grajeda Ot 724.2 LUMBAGO 02/12/2016 MONSERRAT MADDEN MD Ot 784.0 HEADACHE 02/12/2016 MONSERRAT MADDEN MD Ot 787.01 NAUSEA WITH VOMITING 02/25/2016 NOÉ ROBLES, WILLY R Ot 729.81 SWELLING OF LIMB 02/25/2016 WILLY UMANZOR MD R Ot 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 SYMP NEC 02/25/2016 Ot 780.79 OTH MALAISE FATIGUE 02/25/2016 Ot 786.05 SHORTNESS OF BREATH 02/25/2016 WILLY UMANZOR MD Ot 959.6 HIP THIGH INJURY NOS 02/25/2016 WILLY UMANZOR MD Ot E849.0 ACCIDENT IN HOME 02/25/2016 WILLY UMANZOR MD Ot E888.9 FALL NOS 02/25/2016 WILLY UMANZOR MD R Ot G50.1 ATYPICAL FACIAL PAIN 02/25/2016 WILLY UMANZOR MD R Ot M19.90 UNSPECIFIED OSTEOARTHRITIS, UNSPECIFIED 02/25/2016 WILLY UMANZOR MD R Ot M25.552 PAIN IN LEFT HIP 02/25/2016 WILLY UMANZOR MD R Ot M54.16 RADICULOPATHY, LUMBAR REGION 02/25/2016 WILLY UMANZOR MD R Ot E03.9 HYPOTHYROIDISM, UNSPECIFIED 02/25/2016 WILLY UMANZOR MD R Ot M25.552 PAIN IN LEFT HIP 02/25/2016 WILLY UMANZOR MD R Ot M54.16 RADICULOPATHY, LUMBAR REGION 02/25/2016 IVA BOND DO Ot L23.7 ALLERGIC CONTACT DERMATITIS DUE TO PLANT 02/28/2016 IVA BOND DO Ot L23.7 ALLERGIC CONTACT DERMATITIS DUE TO PLANT 02/29/2016 Ot 244.9 HYPOTHYROIDISM NOS 02/29/2016 Ot 433.30 MULT BILTRAL ARTERY OCCLUSION WO CEREBRA 02/29/2016 Ot 780.2 SYNCOPE AND COLLAPSE 02/29/2016 Ot 780.4 DIZZINESS AND GIDDINESS 02/29/2016 Ot 780.79 OTH MALAISE FATIGUE 02/29/2016 Ot 272.4 HYPERLIPIDEMIA NEC/NOS 02/29/2016 Ot 780.2 SYNCOPE AND COLLAPSE 02/29/2016 Ot 780.4 DIZZINESS AND GIDDINESS 02/29/2016 Ot 780.79 OTH MALAISE FATIGUE 02/29/2016 Ot 244.9 HYPOTHYROIDISM NOS 02/29/2016 Ot 719.45 JOINT PAIN- PELVIS 02/29/2016 Ot V43.64 HIP JOINT REPLACEMENT STATUS 02/29/2016 Ot 718.35 RECUR DISLOCAT-PELVIS 02/29/2016 Ot 791.9 ABN URINE FINDINGS NEC 02/29/2016 Ot V57.1 PHYSICAL THERAPY NEC 02/29/2016 Ot V72.63 PRE- PROCEDURAL LABORATORY EXAMINATION 02/29/2016 Ot V74.8 SCREEN- BACTERIAL DIS NEC 02/29/2016 Ot 244.9 HYPOTHYROIDISM NOS 02/29/2016 Ot 244.9 HYPOTHYROIDISM NOS 02/29/2016 NOÉ ROBLES, WILLY R Ot 244.9 HYPOTHYROIDISM NOS 02/29/2016 NOÉ ROBLES, WILLY R Ot 729.81 SWELLING OF LIMB 02/29/2016 NOÉ ROBLES, WILLY R Ot 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 SYMP NEC 02/29/2016 Ot 780.79 OTH MALAISE FATIGUE 02/29/2016 Ot 786.05 SHORTNESS OF BREATH 02/29/2016 NOÉ ROBLES, WILLY R Ot 959.6 HIP THIGH INJURY NOS 02/29/2016 NOÉ ROBLES, WILLY R Ot E849.0 ACCIDENT IN HOME 02/29/2016 NOÉ ROBLES, WILLY R Ot E888.9 FALL NOS 02/29/2016 NOÉ ROBLES, WILLY R Ot G50.1 ATYPICAL FACIAL PAIN 02/29/2016 NOÉ ROBLES, WILLY R Ot M19.90 UNSPECIFIED OSTEOARTHRITIS, UNSPECIFIED 02/29/2016 WILLY UMANZOR MD R Ot M25.552 PAIN IN LEFT HIP 02/29/2016 WILLY UMANZOR MD R Ot M54.16 RADICULOPATHY, LUMBAR REGION 02/29/2016 WILLY UMANZOR MD R Ot E03.9 HYPOTHYROIDISM, UNSPECIFIED 02/29/2016 WILLY UMANZOR MD R Ot M25.552 PAIN IN LEFT HIP 02/29/2016 WILLY UMANZOR MD R Ot M54.16 RADICULOPATHY, LUMBAR REGION 02/29/2016 DANGELO CABRERA MD Ot L23.7 ALLERGIC CONTACT DERMATITIS DUE TO PLANT 02/29/2016 DANGELO CABRERA MD Ot R22.0 LOCALIZED SWELLING, MASS AND LUMP, HEAD 03/01/2016 DANGELO CABRERA MD Ot L23.7 ALLERGIC CONTACT DERMATITIS DUE TO PLANT 03/01/2016 DANGELO CABRERA MD Ot R22.0 LOCALIZED SWELLING, MASS AND LUMP, HEAD 03/01/2016 WILLY UMANZOR MD R Ot M25.552 PAIN IN LEFT HIP 03/01/2016 WILLY UMANZOR MD R Ot M54.16 RADICULOPATHY, LUMBAR REGION 03/01/2016 WILLY UMANZOR MD Ot E03.9 HYPOTHYROIDISM, UNSPECIFIED 03/01/2016 WILLY UMANZOR MD R Ot M25.552 PAIN IN LEFT HIP 03/01/2016 WILLY UMANZOR MD R Ot M54.16 RADICULOPATHY, LUMBAR REGION 03/06/2016 DANGELO CABRERA MD Ot L23.7 ALLERGIC CONTACT DERMATITIS DUE TO PLANT 03/06/2016 DANGELO CABRREA MD Ot R22.0 LOCALIZED SWELLING, MASS AND LUMP, HEAD 03/15/2016 WILLY UMANZOR MD R Ot M25.552 PAIN IN LEFT HIP 03/15/2016 WILLY UMANZOR MD R Ot M54.16 RADICULOPATHY, LUMBAR REGION 03/15/2016 WILLY UMANZOR MD R Ot E03.9 HYPOTHYROIDISM, UNSPECIFIED 03/15/2016 WILLY UMANZOR MD R Ot M25.552 PAIN IN LEFT HIP 03/15/2016 NOÉ ROBLES WILLY R Ot M54.16 RADICULOPATHY, LUMBAR REGION 04/16/2016 MICHOACANO PUENTES Ot I10 ESSENTIAL (PRIMARY) HYPERTENSION 04/16/2016 MICHOACANO PUENTES Ot I10 ESSENTIAL (PRIMARY) HYPERTENSION 04/17/2016 Ot 244.9 HYPOTHYROIDISM NOS 04/17/2016 Ot 433.30 MULT BILTRAL ARTERY OCCLUSION WO CEREBRA 04/17/2016 Ot 780.2 SYNCOPE AND COLLAPSE 04/17/2016 Ot 780.4 DIZZINESS AND GIDDINESS 04/17/2016 Ot 780.79 OTH MALAISE FATIGUE 04/17/2016 Ot 272.4 HYPERLIPIDEMIA NEC/NOS 04/17/2016 Ot 780.2 SYNCOPE AND COLLAPSE 04/17/2016 Ot 780.4 DIZZINESS AND GIDDINESS 04/17/2016 Ot 780.79 OTH MALAISE FATIGUE 04/17/2016 Ot 244.9 HYPOTHYROIDISM NOS 04/17/2016 Ot 719.45 JOINT PAIN- PELVIS 04/17/2016 Ot V43.64 HIP JOINT REPLACEMENT STATUS 04/17/2016 Ot 718.35 RECUR DISLOCAT-PELVIS 04/17/2016 Ot 791.9 ABN URINE FINDINGS NEC 04/17/2016 Ot V57.1 PHYSICAL THERAPY NEC 04/17/2016 Ot V72.63 PRE- PROCEDURAL LABORATORY EXAMINATION 04/17/2016 Ot V74.8 SCREEN- BACTERIAL DIS NEC 04/17/2016 Ot 244.9 HYPOTHYROIDISM NOS 04/17/2016 Ot 244.9 HYPOTHYROIDISM NOS 04/17/2016 WILLY UMANZOR MD Ot 244.9 HYPOTHYROIDISM NOS 04/17/2016 WILLY UMANZOR MD R Ot 729.81 SWELLING OF LIMB 04/17/2016 WILLY UMANZOR MD R Ot 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 SYMP NEC 04/17/2016 Ot 780.79 OTH MALAISE FATIGUE 04/17/2016 Ot 786.05 SHORTNESS OF BREATH 04/17/2016 WILLY UMANZOR MD R Ot 959.6 HIP THIGH INJURY NOS 04/17/2016 WILLY UMANZOR MD R Ot E849.0 ACCIDENT IN HOME 04/17/2016 WILLY UMANZOR MD R Ot E888.9 FALL NOS 04/17/2016 WILLY UMANZOR MD R Ot G50.1 ATYPICAL FACIAL PAIN 04/17/2016 WILLY UMANZOR MD R Ot M19.90 UNSPECIFIED OSTEOARTHRITIS, UNSPECIFIED 04/17/2016 WILLY UMANZOR MD R Ot M25.552 PAIN IN LEFT HIP 04/17/2016 WILLY UMANZOR MD R Ot M54.16 RADICULOPATHY, LUMBAR REGION 04/17/2016 WILLY UMANZOR MD R Ot E03.9 HYPOTHYROIDISM, UNSPECIFIED 04/17/2016 WILLY UMANZOR MD R Ot M25.552 PAIN IN LEFT HIP 04/17/2016 WILLY UMANZOR MD R Ot M54.16 RADICULOPATHY, LUMBAR REGION 04/17/2016 MARINANTONIO DIANE, MICHOACANO K Ot I10 ESSENTIAL (PRIMARY) HYPERTENSION 04/17/2016 MARINANTONIO DIANE, MICHOACANO K Ot I11.0 HYPERTENSIVE HEART DISEASE WITH HEART FA 04/17/2016 MARIN-LEANDRA DIANE, MICHOACANO K Ot I50.32 CHRONIC DIASTOLIC (CONGESTIVE) HEART DIONNA 04/17/2016 MARIN-LEANDRA DIANE, MICHOACANO Rodas Ot 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 05/02/2016 MARINCECE ROXI, MICHOACANO Rodas Ot I11.0 HYPERTENSIVE HEART DISEASE WITH HEART FA 05/02/2016 MARINCECE ROXI, MICHOACANO Rodas Ot I50.32 CHRONIC DIASTOLIC (CONGESTIVE) HEART DIONNA 05/02/2016 MARIN-LEANDRA DIANE, MICHOACANO Rodas Ot 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 07/05/2016 KIMBERLY ROXI, MICHOACANO Rodas Ot I11.0 HYPERTENSIVE HEART DISEASE WITH HEART FA 07/05/2016 MARIN-LEANDRA DIANE, MICHOACANO K Ot I50.32 CHRONIC DIASTOLIC (CONGESTIVE) HEART DIONNA 07/05/2016 KIMBERLY ROXI, MICHOACANO K Ot 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 07/14/2016 MARYANNE ROBLES, MONSERRAT Grajeda Ot 401.9 HYPERTENSION NOS 07/14/2016 MARYANNE ROBLES, MONSERRAT Grajeda Ot 599.0 URIN TRACT INFECTION NOS 07/14/2016 MONSERRAT MADDEN MD Ot 724.2 LUMBAGO 07/14/2016 MONSERRAT MADDEN MD Ot 784.0 HEADACHE 07/14/2016 MONSERRAT MADDEN MD Ot 787.01 NAUSEA WITH VOMITING 09/03/2016 Ot 433.30 MULT BILTRAL ARTERY OCCLUSION WO CEREBRA 09/03/2016 Ot 780.2 SYNCOPE AND COLLAPSE 09/03/2016 Ot 780.4 DIZZINESS AND GIDDINESS 09/03/2016 Ot 780.79 OTH MALAISE FATIGUE 09/03/2016 Ot 272.4 HYPERLIPIDEMIA NEC/NOS 09/03/2016 Ot 780.2 SYNCOPE AND COLLAPSE 09/03/2016 Ot 780.4 DIZZINESS AND GIDDINESS 09/03/2016 Ot 780.79 OTH MALAISE FATIGUE 09/03/2016 Ot 244.9 HYPOTHYROIDISM NOS 09/03/2016 Ot 719.45 JOINT PAIN- PELVIS 09/03/2016 Ot V43.64 HIP JOINT REPLACEMENT STATUS 09/03/2016 Ot 718.35 RECUR DISLOCAT-PELVIS 09/03/2016 Ot 791.9 ABN URINE FINDINGS NEC 09/03/2016 Ot V57.1 PHYSICAL THERAPY NEC 09/03/2016 Ot V72.63 PRE- PROCEDURAL LABORATORY EXAMINATION 09/03/2016 Ot V74.8 SCREEN- BACTERIAL DIS NEC 09/03/2016 Ot 244.9 HYPOTHYROIDISM NOS 09/03/2016 Ot 244.9 HYPOTHYROIDISM NOS 09/03/2016 NOÉ ROBLES, WILLY R Ot 244.9 HYPOTHYROIDISM NOS 09/03/2016 NOÉ ROBLES, WILLY R Ot 729.81 SWELLING OF LIMB 09/03/2016 WILLY UMANZOR MD R Ot 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 SYMP NEC 09/03/2016 Ot 780.79 OTH MALAISE FATIGUE 09/03/2016 Ot 786.05 SHORTNESS OF BREATH 09/03/2016 WILLY UMANZOR MD R Ot 959.6 HIP THIGH INJURY NOS 09/03/2016 WILLY UMANZOR MD Ot E849.0 ACCIDENT IN HOME 09/03/2016 WILLY UMANZOR MD Ot E888.9 FALL NOS 09/03/2016 WILLY UMANZOR MD R Ot G50.1 ATYPICAL FACIAL PAIN 09/03/2016 WILLY UMANZOR MD R Ot M19.90 UNSPECIFIED OSTEOARTHRITIS, UNSPECIFIED 09/03/2016 WILLY UMANZOR MD R Ot M25.552 PAIN IN LEFT HIP 09/03/2016 WILLY UMANZOR MD R Ot M54.16 RADICULOPATHY, LUMBAR REGION 09/03/2016 WILLY UMANZOR MD R Ot E03.9 HYPOTHYROIDISM, UNSPECIFIED 09/03/2016 WILLY UMANZOR MD R Ot M25.552 PAIN IN LEFT HIP 09/03/2016 WILLY UMANZOR MD R Ot M54.16 RADICULOPATHY, LUMBAR REGION 09/03/2016 MICHOACANO PUENTES Ot I11.0 HYPERTENSIVE HEART DISEASE WITH HEART FA 09/03/2016 MICHOACANO PUENTES Ot I50.32 CHRONIC DIASTOLIC (CONGESTIVE) HEART DIONNA 09/03/2016 KIMBERLY DIANE, MICHOACANO Rodas Ot 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 09/03/2016 WILLY UMANZOR MD R Ot R53.1 WEAKNESS 09/03/2016 WILLY UMANZOR MD Ot R53.1 WEAKNESS 09/03/2016 WILLY UMANZOR MD Ot R53.1 WEAKNESS 09/03/2016 WILLY UMANZOR MD Ot R53.1 WEAKNESS 09/04/2016 WILLY UMANZOR MD Ot R53.1 WEAKNESS 09/05/2016 Ot 433.30 MULT BILTRAL ARTERY OCCLUSION WO CEREBRA 09/05/2016 Ot 780.2 SYNCOPE AND COLLAPSE 09/05/2016 Ot 780.4 DIZZINESS AND GIDDINESS 09/05/2016 Ot 780.79 OTH MALAISE FATIGUE 09/05/2016 Ot 272.4 HYPERLIPIDEMIA NEC/NOS 09/05/2016 Ot 780.2 SYNCOPE AND COLLAPSE 09/05/2016 Ot 780.4 DIZZINESS AND GIDDINESS 09/05/2016 Ot 780.79 OTH MALAISE FATIGUE 09/05/2016 Ot 244.9 HYPOTHYROIDISM NOS 09/05/2016 Ot 719.45 JOINT PAIN- PELVIS 09/05/2016 Ot V43.64 HIP JOINT REPLACEMENT STATUS 09/05/2016 Ot 718.35 RECUR DISLOCAT-PELVIS 09/05/2016 Ot 791.9 ABN URINE FINDINGS NEC 09/05/2016 Ot V57.1 PHYSICAL THERAPY NEC 09/05/2016 Ot V72.63 PRE- PROCEDURAL LABORATORY EXAMINATION 09/05/2016 Ot V74.8 SCREEN- BACTERIAL DIS NEC 09/05/2016 Ot 244.9 HYPOTHYROIDISM NOS 09/05/2016 Ot 244.9 HYPOTHYROIDISM NOS 09/05/2016 WILLY UMANZOR MD Ot 244.9 HYPOTHYROIDISM NOS 09/05/2016 WILLY UMANZOR MD Ot 729.81 SWELLING OF LIMB 09/05/2016 WILLY UMANZOR MD Ot 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 SYMP NEC 09/05/2016 Ot 780.79 OTH MALAISE FATIGUE 09/05/2016 Ot 786.05 SHORTNESS OF BREATH 09/05/2016 WILLY UMANZOR MD Ot 959.6 HIP THIGH INJURY NOS 09/05/2016 SEGLIE MD, WILLY R Ot E849.0 ACCIDENT IN HOME 09/05/2016 NOÉ ROBLES, WILLY R Ot E888.9 FALL NOS 09/05/2016 NOÉ ROBLES, WILLY R Ot G50.1 ATYPICAL FACIAL PAIN 09/05/2016 NOÉ ROBLES, WILLY R Ot M19.90 UNSPECIFIED OSTEOARTHRITIS, UNSPECIFIED 09/05/2016 WILLY UMANZOR MD R Ot M25.552 PAIN IN LEFT HIP 09/05/2016 WILLY UMANZOR MD R Ot M54.16 RADICULOPATHY, LUMBAR REGION 09/05/2016 WILLY UMANZOR MD Ot E03.9 HYPOTHYROIDISM, UNSPECIFIED 09/05/2016 WILLY UMANZOR MD R Ot M25.552 PAIN IN LEFT HIP 09/05/2016 WILLY UMANZOR MD R Ot M54.16 RADICULOPATHY, LUMBAR REGION 09/05/2016 MICHOACANO PUENTES Ot I11.0 HYPERTENSIVE HEART DISEASE WITH HEART FA 09/05/2016 MICHOACANO PUENTES Ot I50.32 CHRONIC DIASTOLIC (CONGESTIVE) HEART DIONNA 09/05/2016 MICHOACANO PUENTES Ot 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 09/05/2016 WILLY UMANZOR MD R Ot R53.1 WEAKNESS 09/24/2016 WILLY UMANZOR MD Ot R53.1 WEAKNESS 12/12/2016 MARYANNE ROBLES, MONSERRAT Grajeda Ot 401.9 HYPERTENSION NOS 12/12/2016 MARYANNE ROBLES, MONSERRAT Grajeda Ot 599.0 URIN TRACT INFECTION NOS 12/12/2016 MONSERRAT MADDEN MD T Ot 724.2 LUMBAGO 12/12/2016 MONSERRAT MADDEN MD T Ot 784.0 HEADACHE 12/12/2016 MONSERRAT MADDEN MD Ot 787.01 NAUSEA WITH VOMITING 02/06/2017 WILLY UMANZOR MD R Ot M19.012 PRIMARY OSTEOARTHRITIS, LEFT SHOULDER 02/06/2017 WILLY UMANZOR MD R Ot M25.552 PAIN IN LEFT HIP 02/06/2017 WILLY UMANZOR MD R Ot M25.562 PAIN IN LEFT KNEE 02/06/2017 WILLY UMANZOR MD R Ot Z96.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 02/06/2017 WILLY UMANZOR MD R Ot Z96.652 PRESENCE OF LEFT ARTIFICIAL KNEE JOINT 2017 WILLY UMANZOR MD R Ot M19.012 PRIMARY OSTEOARTHRITIS, LEFT SHOULDER 2017 WILLY UMANZOR MD R Ot M25.552 PAIN IN LEFT HIP 2017 WILLY UMANZOR MD R Ot M25.562 PAIN IN LEFT KNEE 2017 NOÉ ROBLES WILLY R Ot Z96.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 2017 WILLY UMANZOR MD R Ot Z96.652 PRESENCE OF LEFT ARTIFICIAL KNEE JOINT 03/26/2017 WILLY UMANZOR MD R Ot M19.012 PRIMARY OSTEOARTHRITIS, LEFT SHOULDER 03/26/2017 WILLY UMANZOR MD R Ot M25.552 PAIN IN LEFT HIP 03/26/2017 WILLY UMANZOR MD R Ot M25.562 PAIN IN LEFT KNEE 03/26/2017 WILLY UMANZOR MD R Ot Z96.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 03/26/2017 WILLY UMANZOR MD R Ot Z96.652 PRESENCE OF LEFT ARTIFICIAL KNEE JOINT 04/22/2017 SERGIO MARIA APRN Ot G47.50 PARASOMNIA, UNSPECIFIED 04/23/2017 WILLY UMANZOR MD R Ot M19.011 PRIMARY OSTEOARTHRITIS, RIGHT SHOULDER 04/23/2017 WILLY UMANZOR MD R Ot M62.511 MUSCLE WASTING AND ATROPHY, NEC, RIGHT S 04/23/2017 WILLY UMANZOR MD R Ot M75.101 UNSP ROTATR-CUFF TEAR/RUPTR OF RIGHT REESE 04/30/2017 SERGIO MARIA APRN Ot M79.89 OTHER SPECIFIED SOFT TISSUE DISORDERS 05/01/2017 SERGIO MARIA APRN Ot R22.43 LOCALIZED SWELLING, MASS AND LUMP, LOWER 05/01/2017 SERGIO MARIA APRN Ot R93.7 ABNORMAL FINDINGS ON DIAGNOSTIC IMAGING 05/09/2017 WILLY UMANZOR MD R Ot M19.011 PRIMARY OSTEOARTHRITIS, RIGHT SHOULDER 05/09/2017 WILLY UMANZOR MD R Ot M62.511 MUSCLE WASTING AND ATROPHY, NEC, RIGHT S 05/09/2017 WILLY UMANZOR MD R Ot M75.101 UNSP ROTATR-CUFF TEAR/RUPTR OF RIGHT REESE 05/14/2017 SERGIO MARIA APRN Ot M79.89 OTHER SPECIFIED SOFT TISSUE DISORDERS 05/14/2017 SERGIO MARIA APRN Ot R06.00 DYSPNEA, UNSPECIFIED 05/14/2017 SERGIO MARIA APRN Ot Z86.73 PRSNL HX OF TIA (TIA), AND CEREB INFRC W 05/22/2017 SERGIO MARIA APRN Ot R06.02 SHORTNESS OF BREATH 05/28/2017 WILLY UMANZOR MD R Ot 729.81 SWELLING OF LIMB 05/28/2017 WILLY UMANZOR MD R Ot 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 SYMP NEC 05/28/2017 Ot 780.79 OTH MALAISE FATIGUE 05/28/2017 Ot 786.05 SHORTNESS OF BREATH 05/28/2017 WILLY UMANZOR MD R Ot 959.6 HIP THIGH INJURY NOS 05/28/2017 WILLY UMANZOR MD R Ot E849.0 ACCIDENT IN HOME 05/28/2017 WILLY UMANZOR MD R Ot E888.9 FALL NOS 05/28/2017 WILLY UMANZOR MD R Ot G50.1 ATYPICAL FACIAL PAIN 05/28/2017 WILLY UMANZOR MD R Ot M19.90 UNSPECIFIED OSTEOARTHRITIS, UNSPECIFIED 05/28/2017 WILLY UMANZOR MD R Ot M25.552 PAIN IN LEFT HIP 05/28/2017 WILLY UMANZOR MD R Ot M54.16 RADICULOPATHY, LUMBAR REGION 05/28/2017 WILLY UMANZOR MD R Ot E03.9 HYPOTHYROIDISM, UNSPECIFIED 05/28/2017 WILLY UMANZOR MD R Ot M25.552 PAIN IN LEFT HIP 05/28/2017 WILLY UMANZOR MD R Ot M54.16 RADICULOPATHY, LUMBAR REGION 05/29/2017 WILLY UMANZOR MD R Ot M25.551 PAIN IN RIGHT HIP 05/29/2017 WILLY UMANZOR MD R Ot Z96.641 PRESENCE OF RIGHT ARTIFICIAL HIP JOINT 06/03/2017 SEGWILLY BRIONES MD, Ot M19.011 PRIMARY OSTEOARTHRITIS, RIGHT SHOULDER 06/03/2017 WILLY UMANZOR MD Ot M62.511 MUSCLE WASTING AND ATROPHY, NEC, RIGHT S 06/03/2017 WILLY UMANZOR MD Ot M75.101 UNSP ROTATR-CUFF TEAR/RUPTR OF RIGHT REESE 06/06/2017 SERGIO MARIA APRN Ot M79.89 OTHER SPECIFIED SOFT TISSUE DISORDERS 06/06/2017 SERGIO MARIA APRN Ot R06.00 DYSPNEA, UNSPECIFIED 06/06/2017 SERGIO MARIA APRN Ot Z86.73 PRSNL HX OF TIA (TIA), AND CEREB INFRC W 06/06/2017 SERGIO MARIA APRN Ot R22.43 LOCALIZED SWELLING, MASS AND LUMP, LOWER 06/06/2017 SERGIO MARIA APRN Ot R93.7 ABNORMAL FINDINGS ON DIAGNOSTIC IMAGING 06/17/2017 Ot 718.35 RECUR DISLOCAT-PELVIS 06/17/2017 Ot 791.9 ABN URINE FINDINGS NEC 06/17/2017 Ot V57.1 PHYSICAL THERAPY NEC 06/17/2017 Ot V72.63 PRE- PROCEDURAL LABORATORY EXAMINATION 06/17/2017 Ot V74.8 SCREEN- BACTERIAL DIS NEC 06/17/2017 Ot 244.9 HYPOTHYROIDISM NOS 06/17/2017 Ot 244.9 HYPOTHYROIDISM NOS 06/17/2017 WILLY UMANZOR MD Ot 244.9 HYPOTHYROIDISM NOS 06/17/2017 WILLY UMANZOR MD Ot 729.81 SWELLING OF LIMB 06/17/2017 WILLY UMANZOR MD Ot 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 SYMP NEC 06/17/2017 Ot 780.79 OTH MALAISE FATIGUE 06/17/2017 Ot 786.05 SHORTNESS OF BREATH 06/17/2017 WILLY UMANZOR MD Ot 959.6 HIP THIGH INJURY NOS 06/17/2017 WILLY UMANZOR MD Ot E849.0 ACCIDENT IN HOME 06/17/2017 WILLY UMANZOR MD Ot E888.9 FALL NOS 06/17/2017 WILLY UMANZOR MD Ot G50.1 ATYPICAL FACIAL PAIN 06/17/2017 WILLY UMANZOR MD, Ot M19.90 UNSPECIFIED OSTEOARTHRITIS, UNSPECIFIED 06/17/2017 WILLY UMANZOR MD Ot M25.552 PAIN IN LEFT HIP 06/17/2017 WILLY UMANZOR MD Ot M54.16 RADICULOPATHY, LUMBAR REGION 06/17/2017 WILLY UMANZOR MD Ot E03.9 HYPOTHYROIDISM, UNSPECIFIED 06/17/2017 WILLY UMANZOR MD Ot M25.552 PAIN IN LEFT HIP 06/17/2017 WILLY UMANZOR MD Ot M54.16 RADICULOPATHY, LUMBAR REGION 06/17/2017 MICHOACANO PUENTES Ot I11.0 HYPERTENSIVE HEART DISEASE WITH HEART FA 06/17/2017 MICHOACANO PUENTES Ot I50.32 CHRONIC DIASTOLIC (CONGESTIVE) HEART DIONNA 06/17/2017 MICHOACANO PUENTES Ot 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 06/17/2017 WILLY UMANZOR MD Ot R53.1 WEAKNESS 06/17/2017 WILLY UMANZOR MD Ot M19.012 PRIMARY OSTEOARTHRITIS, LEFT SHOULDER 06/17/2017 WILLY UMANZOR MD Ot M25.552 PAIN IN LEFT HIP 06/17/2017 WILLY UMANZOR MD Ot M25.562 PAIN IN LEFT KNEE 06/17/2017 WILLY UMANZOR MD Ot Z96.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 06/17/2017 WILLY UMANZOR MD Ot Z96.652 PRESENCE OF LEFT ARTIFICIAL KNEE JOINT 06/17/2017 WILLY UMANZOR MD Ot M19.011 PRIMARY OSTEOARTHRITIS, RIGHT SHOULDER 06/17/2017 WILLY UMANZOR MD Ot M62.511 MUSCLE WASTING AND ATROPHY, NEC, RIGHT S 06/17/2017 WILLY UMANZOR MD Ot M75.101 UNSP ROTATR-CUFF TEAR/RUPTR OF RIGHT REESE 06/17/2017 SERGIO MARIA APRN Ot M79.89 OTHER SPECIFIED SOFT TISSUE DISORDERS 06/17/2017 SERGIO MARIA APRN Ot R06.00 DYSPNEA, UNSPECIFIED 06/17/2017 SERGIO MARIA APRN Ot Z86.73 PRSNL HX OF TIA (TIA), AND CEREB INFRC W 06/17/2017 SERGIO MARIA APRN Ot R22.43 LOCALIZED SWELLING, MASS AND LUMP, LOWER 06/17/2017 SERGIO MARIA APRN Ot R93.7 ABNORMAL FINDINGS ON DIAGNOSTIC IMAGING 06/17/2017 SERGIO MARIA APRN Ot R06.02 SHORTNESS OF BREATH 06/17/2017 ALEXSANDER GUILLEN DO Ot M79.601 PAIN IN RIGHT ARM 06/17/2017 WILLY UMANZOR MD Ot M25.551 PAIN IN RIGHT HIP 06/17/2017 WILLY UMANZOR MD Ot Z96.641 PRESENCE OF RIGHT ARTIFICIAL HIP JOINT 06/17/2017 WILLY UMANZOR MD Ot M25.551 PAIN IN RIGHT HIP 06/17/2017 WILLY UMANZOR MD, Ot Z96.641 PRESENCE OF RIGHT ARTIFICIAL HIP JOINT 06/17/2017 ALEXSANDER GUILLEN DO Ot I10 ESSENTIAL (PRIMARY) HYPERTENSION 06/17/2017 ALEXSANDER GUILLEN DO Ot M75.101 UNSP ROTATR-CUFF TEAR/RUPTR OF RIGHT REESE 06/17/2017 ALEXSANDER GUILLEN DO, Ot M79.601 PAIN IN RIGHT ARM 06/17/2017 ALEXSANDER GUILLEN DO Ot R53.83 OTHER FATIGUE 06/17/2017 ALEXSANDER GUILLEN DO Ot R82.90 UNSPECIFIED ABNORMAL FINDINGS IN URINE 06/17/2017 ALEXSANDER GUILLEN DO Ot Z01.810 ENCOUNTER FOR PREPROCEDURAL CARDIOVASCUL 06/17/2017 ALEXSANDER GUILLEN DO Ot Z01.812 ENCOUNTER FOR PREPROCEDURAL LABORATORY E 06/17/2017 ALEXSANDER GUILLEN DO Ot Z11.2 ENCOUNTER FOR SCREENING FOR OTHER BACTER 06/17/2017 ALEXSANDER GUILLEN DO Ot Z22.322 CARRIER OR SUSPECTED CARRIER OF METHICIL 06/17/2017 WILLY UMANZOR MD Ot M25.551 PAIN IN RIGHT HIP 06/17/2017 WILLY UMANZOR MD Ot Z96.641 PRESENCE OF RIGHT ARTIFICIAL HIP JOINT 06/18/2017 ALEXSANDER GUILLEN DO Ot I10 ESSENTIAL (PRIMARY) HYPERTENSION 06/18/2017 ALEXSANDER GUILLEN DO Ot M75.101 UNSP ROTATR-CUFF TEAR/RUPTR OF RIGHT RESEE 06/18/2017 ALEXSANDER GUILLEN DO Ot M79.601 PAIN IN RIGHT ARM 06/18/2017 ALEXSANDER GUILLEN DO Ot R53.83 OTHER FATIGUE 06/18/2017 ALEXSANDER GUILLEN DO Ot R82.90 UNSPECIFIED ABNORMAL FINDINGS IN URINE 06/18/2017 ALEXSANDER GUILLEN DO, Ot Z01.810 ENCOUNTER FOR PREPROCEDURAL CARDIOVASCUL 06/18/2017 ALEXSANDER GUILLEN DO, Ot Z01.812 ENCOUNTER FOR PREPROCEDURAL LABORATORY E 06/18/2017 ALEXSANDER GUILLEN DO, Ot Z11.2 ENCOUNTER FOR SCREENING FOR OTHER BACTER 06/18/2017 ALEXSANDER GUILLEN DO Ot Z22.322 CARRIER OR SUSPECTED CARRIER OF METHICIL 06/24/2017 SERGIO MARIA APRN Ot R06.02 SHORTNESS OF BREATH 06/30/2017 SERGIO MARIA APRN Ot M79.89 OTHER SPECIFIED SOFT TISSUE DISORDERS 06/30/2017 SERGIO MARIA APRN Ot R06.00 DYSPNEA, UNSPECIFIED 06/30/2017 SERGIO MARIA APRN Ot Z86.73 PRSNL HX OF TIA (TIA), AND CEREB INFRC W 06/30/2017 SERGIO MARIA APRN Ot R22.43 LOCALIZED SWELLING, MASS AND LUMP, LOWER 06/30/2017 SERGIO MARIA APRN Ot R93.7 ABNORMAL FINDINGS ON DIAGNOSTIC IMAGING 07/02/2017 NOÉ ROBLES, WILLY Syed Ot M25.551 PAIN IN RIGHT HIP 07/02/2017 NOÉ ROBLES, WILLY Syed Ot Z96.641 PRESENCE OF RIGHT ARTIFICIAL HIP JOINT 07/03/2017 ALEXSANDER GUILLEN DO Ot E03.9 HYPOTHYROIDISM, UNSPECIFIED 07/03/2017 ALEXSANDER GUILLEN DO Ot H91.90 UNSPECIFIED HEARING LOSS, UNSPECIFIED EA 07/03/2017 ALEXSANDER GUILLEN DO Ot I10 ESSENTIAL (PRIMARY) HYPERTENSION 07/03/2017 ALEXSANDER GUILLEN DO Ot M19.011 PRIMARY OSTEOARTHRITIS, RIGHT SHOULDER 07/03/2017 ALEXSANDER GUILLEN DO, Ot M54.9 DORSALGIA, UNSPECIFIED 07/03/2017 ALEXSANDER GUILLEN DO Ot M75.121 COMPLETE ROTATR-CUFF TEAR/RUPTR OF R REESE 07/03/2017 ALEXSANDER GUILLEN DO Ot Z79.02 MCFP (CURRENT) USE OF ANTITHROMBOTI 07/03/2017 ALEXSANDER GUILLEN DO Ot Z86.718 PERSONAL HISTORY OF OTHER VENOUS THROMBO 07/03/2017 MINDY ALEXSANDER COTTRELL Ot Z86.73 PRSNL HX OF TIA (TIA), AND CEREB INFRC W 07/03/2017 ALEXSANDER GUILLEN DO Ot Z96.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 07/03/2017 ALEXSANDER GUILLEN DO Ot Z96.653 PRESENCE OF ARTIFICIAL KNEE JOINT, BILAT 07/16/2017 NOÉ ROBLES, WILLY Syed Ot M25.551 PAIN IN RIGHT HIP 07/16/2017 WILLY UMANZOR MD Ot Z96.641 PRESENCE OF RIGHT ARTIFICIAL HIP JOINT 12/10/2017 PEACE ANSARI R FILM DEVELOPER Ot E03.8 OTHER SPECIFIED HYPOTHYROIDISM 12/10/2017 ELAN PEACE R FILM DEVELOPER Ot E78.2 MIXED HYPERLIPIDEMIA 12/10/2017 PEACE ANSARI R FILM DEVELOPER Ot Z86.73 PRSNL HX OF TIA (TIA), AND CEREB INFRC W 12/30/2017 PEACE ANSARI R FILM DEVELOPER Ot E03.8 OTHER SPECIFIED HYPOTHYROIDISM 12/30/2017 PEACE ANSARI R FILM DEVELOPER Ot E78.2 MIXED HYPERLIPIDEMIA 12/30/2017 AIXA ANSARIINA R FILM DEVELOPER Ot Z86.73 PRSNL HX OF TIA (TIA), AND CEREB INFRC W Procedures Code Description Performed By Performed On RAY OF HIP REPLACE, ACETABULAR LINER 01/27/2012 [id number] REPLACE OF R SHOULDER JT WITH REV BL S 07/01/2017 [id number] INTRODUCE ANESTHETIC IN PERIPH NRV, PLEX 07/01/2017 Results Test Result Range Complete blood count (CBC) with automated white blood cell (WBC) differential - 09/03/16 10:00 Blood leukocytes automated count (number/volume) 6.2 10*3/uL 4.3-11.0 Blood erythrocytes automated count (number/volume) 4.91 10*6/uL 4.35-5.85 Venous blood hemoglobin measurement (mass/volume) 14.6 g/dL 11.5-16.0 Blood hematocrit (volume fraction) 43 % 35-52 Automated erythrocyte mean corpuscular volume 88 [foz_us] 80-99 Automated erythrocyte mean corpuscular hemoglobin (mass per erythrocyte) 30 pg 25-34 Automated erythrocyte mean corpuscular hemoglobin concentration measurement ( mass/volume) 34 g/dL 32-36 Automated erythrocyte distribution width ratio 14.4 % 10.0-14.5 Automated blood platelet count (count/volume) 230 10*3/uL 130-400 Automated blood platelet mean volume measurement 11.5 [foz_us] 7.4-10.4 Automated blood neutrophils/100 leukocytes 65 % 42-75 Automated blood lymphocytes/100 leukocytes 22 % 12-44 Blood monocytes/100 leukocytes 9 % 0-12 Automated blood eosinophils/100 leukocytes 3 % 0-10 Automated blood basophils/100 leukocytes 1 % 0-10 Blood neutrophils automated count (number/volume) 4.0 10*3 1.8-7.8 Blood lymphocytes automated count (number/volume) 1.4 10*3 1.0-4.0 Blood monocytes automated count (number/volume) 0.6 10*3 0.0-1.0 Automated eosinophil count 0.2 10*3/uL 0.0-0.3 Automated blood basophil count (count/volume) 0.0 10*3/uL 0.0-0.1 THYROID STIMULATING HORMONE - 09/03/16 10:00 THYROID STIMULATING HORMONE 0.22 u[iU]/mL 0.35-4.94 Arterial blood gas measurement - 04/30/17 13:45 Blood pCO2 35 mm[Hg] 35-45 Blood pO2 85 mm[Hg] 79-93 Arterial blood bicarbonate measurement (moles/volume) 24 mmol/L 23-27 Arterial blood base excess by calculation -0.4 mmol/L - 2.5-2.5 Arterial blood oxygen saturation measurement 98 % 94-100 * Inhaled oxygen flow rate room air NRG Arterial blood pH measurement with patient temperature correction 7.43 7.37-7.43 Arterial blood carbon dioxide, total measurement (moles/volume) 24.6 mmol/L 21.0-31.0 Body site Lt radial NRG Assessment of wrist artery patency prior to arterial puncture YES- POS NRG Setting of ventilation mode NO NRG Measurement of body temperature 97.1 NRG [id number] - 05/14/17 10:25 Serum or plasma urea nitrogen measurement (mass/volume) 16 mg/dL 7-18 Serum or plasma creatinine measurement (mass/volume) 0.80 mg/dL 0.60-1.30 Serum or plasma urea nitrogen/creatinine mass ratio 20 NRG Serum or plasma creatinine measurement with calculation of estimated glomerular filtration rate > NRG Methicillin resistant Staphylococcus aureus (MRSA) screening culture - 10:32 Methicillin resistant Staphylococcus aureus (MRSA) screening culture NEG NRG Complete blood count (CBC) with automated white blood cell (WBC) differential - 06/17/17 10:40 Blood leukocytes automated count (number/volume) 6.0 10*3/uL 4.3-11.0 Blood erythrocytes automated count (number/volume) 4.54 10*6/uL 4.35-5.85 Venous blood hemoglobin measurement (mass/volume) 13.5 g/dL 11.5-16.0 Blood hematocrit (volume fraction) 41 % 35-52 Automated erythrocyte mean corpuscular volume 90 [foz_us] 80-99 Automated erythrocyte mean corpuscular hemoglobin (mass per erythrocyte) 30 pg 25-34 Automated erythrocyte mean corpuscular hemoglobin concentration measurement ( mass/volume) 33 g/dL 32-36 Automated erythrocyte distribution width ratio 14.2 % 10.0-14.5 Automated blood platelet count (count/volume) 195 10*3/uL 130-400 Automated blood platelet mean volume measurement 11.8 [foz_us] 7.4-10.4 Automated blood neutrophils/100 leukocytes 61 % 42-75 Automated blood lymphocytes/100 leukocytes 26 % 12-44 Blood monocytes/100 leukocytes 10 % 0-12 Automated blood eosinophils/100 leukocytes 3 % 0-10 Automated blood basophils/100 leukocytes 1 % 0-10 Blood neutrophils automated count (number/volume) 3.7 10*3 1.8-7.8 Blood lymphocytes automated count (number/volume) 1.6 10*3 1.0-4.0 Blood monocytes automated count (number/volume) 0.6 10*3 0.0-1.0 Automated eosinophil count 0.2 10*3/uL 0.0-0.3 Automated blood basophil count (count/volume) 0.0 10*3/uL 0.0-0.1 PT panel in platelet poor plasma by coagulation assay - 06/17/17 10:40 Prothrombin time (PT) in platelet poor plasma by coagulation assay 12.3 s 12.2-14.7 INR in platelet poor plasma or blood by coagulation assay 0.9 0.8-1.4 Whole blood basic metabolic panel - 06/17/17 10:40 Serum or plasma sodium measurement (moles/volume) 141 mmol/L 135-145 Serum or plasma potassium measurement (moles/volume) 4.0 mmol/L 3.6-5.0 Serum or plasma chloride measurement (moles/volume) 105 mmol/L 98-107 Carbon dioxide 29 mmol/L 21-32 Serum or plasma anion gap determination (moles/volume) 7 mmol/L 5-14 Serum or plasma urea nitrogen measurement (mass/volume) 13 mg/dL 7-18 Serum or plasma creatinine measurement (mass/volume) 0.73 mg/dL 0.60-1.30 Serum or plasma urea nitrogen/creatinine mass ratio 18 NRG Serum or plasma creatinine measurement with calculation of estimated glomerular filtration rate > NRG Serum or plasma glucose measurement (mass/volume) 94 mg/dL 70-105 Serum or plasma calcium measurement (mass/volume) 9.5 mg/dL 8.5-10.1 Blood type T Indirect antibody screen panel - 06/17/17 10:40 ABO+Rh group AP NRG Blood group antibody screen NEGATIVE NRG Complete urinalysis with reflex to culture - 06/17/17 10:45 Urine color determination YELLOW NRG Urine clarity determination CLEAR NRG Urine pH measurement by test strip 6 5-9 Specific gravity of urine by test strip 1.015 1.016- 1.022 Urine protein assay by test strip, semi-quantitative 1+ NEGATIVE Urine glucose detection by automated test strip NEGATIVE NEGATIVE Erythrocytes detection in urine sediment by light microscopy 1+ NEGATIVE Urine ketones detection by automated test strip NEGATIVE NEGATIVE Urine nitrite detection by test strip POSITIVE NEGATIVE Urine total bilirubin detection by test strip NEGATIVE NEGATIVE Urine urobilinogen measurement by automated test strip (mass/volume) NORMAL NORMAL Urine leukocyte esterase detection by dipstick 3+ NEGATIVE Automated urine sediment erythrocyte count by microscopy (number/high power field) RARE NRG Automated urine sediment leukocyte count by microscopy (number/high power field ) [HPF] NRG Bacteria detection in urine sediment by light microscopy LARGE NRG Squamous epithelial cells detection in urine sediment by light microscopy 10-25 NRG Crystals detection in urine sediment by light microscopy NONE NRG Casts detection in urine sediment by light microscopy NONE NRG Mucus detection in urine sediment by light microscopy NEGATIVE NRG Complete urinalysis with reflex to culture YES NRG Bacterial urine culture - 06/17/17 10:45 Bacterial urine culture [id number] NRG COLONY COUNT 10,000/ML - 100,000/ML NRG FTX;REPORTABLE (AND NOT GROUP D STREP) NR Bacterial susceptibility panel - 06/17/17 10:45 Gentamicin susceptibility test by minimum inhibitory concentration < = NRG Trimethoprim/sulfamethoxazole susceptibility test by minimum inhibitoryconcentration S NRG Ampicillin susceptibility test by minimum inhibitory concentration < = NRG Tobramycin susceptibility test by minimum inhibitory concentration < = NRG Cefazolin susceptibility test by minimum inhibitory concentration < = NRG Ceftriaxone susceptibility test by minimum inhibitory concentration <= NRG Ampicillin/sulbactam susceptibility test by minimum inhibitory concentration S NRG Piperacillin/tazobactam susceptibility test by minimum inhibitory concentration <= NRG Ciprofloxacin susceptibility test by minimum inhibitory concentration <= NRG Meropenem susceptibility test by minimum inhibitory concentration < = NRG Nitrofurantoin susceptibility test by minimum inhibitory concentration <= NRG Aztreonam susceptibility test by minimum inhibitory concentration < = NRG Extended spectrum beta lactamase (ESBL) producing bacteria susceptibility test by minimum inhibitory concentration - [facility] Blood type T Indirect antibody screen panel - 07/01/17 06:25 ABO+Rh group AP [facility] Transfusion band number [id number] NR Blood group antibody screen NEGATIVE NR Automated blood complete blood count (hemogram) panel - 07/02/17 05:50 Blood leukocytes automated count (number/volume) 10.3 10*3/uL 4.3-11.0 Blood erythrocytes automated count (number/volume) 3.72 10*6/uL 4.35-5.85 Venous blood hemoglobin measurement (mass/volume) 11.2 g/dL 11.5-16.0 Blood hematocrit (volume fraction) 34 % 35-52 Automated erythrocyte mean corpuscular volume 91 [foz_us] 80-99 Automated erythrocyte mean corpuscular hemoglobin (mass per erythrocyte) 30 pg 25-34 Automated erythrocyte mean corpuscular hemoglobin concentration measurement ( mass/volume) 33 g/dL 32-36 Automated erythrocyte distribution width ratio 14.2 % 10.0-14.5 Automated blood platelet count (count/volume) 206 10*3/uL 130-400 Automated blood platelet mean volume measurement 11.1 [foz_us] 7.4-10.4 Whole blood basic metabolic panel - 07/02/17 05:50 Serum or plasma sodium measurement (moles/volume) 143 mmol/L 135-145 Serum or plasma potassium measurement (moles/volume) 3.9 mmol/L 3.6-5.0 Serum or plasma chloride measurement (moles/volume) 109 mmol/L 98-107 Carbon dioxide 25 mmol/L 21-32 Serum or plasma anion gap determination (moles/volume) 9 mmol/L 5-14 Serum or plasma urea nitrogen measurement (mass/volume) 12 mg/dL 7-18 Serum or plasma creatinine measurement (mass/volume) 0.63 mg/dL 0.60-1.30 Serum or plasma urea nitrogen/creatinine mass ratio 19 NRG Serum or plasma creatinine measurement with calculation of estimated glomerular filtration rate > NRG Serum or plasma glucose measurement (mass/volume) 120 mg/dL 70-105 Serum or plasma calcium measurement (mass/volume) 8.5 mg/dL 8.5-10.1 Automated blood complete blood count (hemogram) panel - 07/03/17 06:37 Blood leukocytes automated count (number/volume) 9.6 10*3/uL 4.3-11.0 Blood erythrocytes automated count (number/volume) 3.88 10*6/uL 4.35-5.85 Venous blood hemoglobin measurement (mass/volume) 11.8 g/dL 11.5-16.0 Blood hematocrit (volume fraction) 35 % 35-52 Automated erythrocyte mean corpuscular volume 91 [foz_us] 80-99 Automated erythrocyte mean corpuscular hemoglobin (mass per erythrocyte) 30 pg 25-34 Automated erythrocyte mean corpuscular hemoglobin concentration measurement ( mass/volume) 33 g/dL 32-36 Automated erythrocyte distribution width ratio 14.6 % 10.0-14.5 Automated blood platelet count (count/volume) 209 10*3/uL 130-400 Automated blood platelet mean volume measurement 11.4 [foz_us] 7.4-10.4 Whole blood basic metabolic panel - 07/03/17 06:37 Serum or plasma sodium measurement (moles/volume) 141 mmol/L 135-145 Serum or plasma potassium measurement (moles/volume) 4.0 mmol/L 3.6-5.0 Serum or plasma chloride measurement (moles/volume) 105 mmol/L 98-107 Carbon dioxide 24 mmol/L 21-32 Serum or plasma anion gap determination (moles/volume) 12 mmol/L 5-14 Serum or plasma urea nitrogen measurement (mass/volume) 12 mg/dL 7-18 Serum or plasma creatinine measurement (mass/volume) 0.63 mg/dL 0.60-1.30 Serum or plasma urea nitrogen/creatinine mass ratio 19 NRG Serum or plasma creatinine measurement with calculation of estimated glomerular filtration rate > NRG Serum or plasma glucose measurement (mass/volume) 91 mg/dL 70-105 Serum or plasma calcium measurement (mass/volume) 8.9 mg/dL 8.5-10.1 Lipid 1996 panel - 12/09/17 07:50 Serum or plasma triglyceride measurement (mass/volume) 122 mg/dL <150 Serum or plasma cholesterol measurement (mass/volume) 158 mg/dL < 200 Serum or plasma cholesterol in HDL measurement (mass/volume) 43 mg/ dL 40-60 Cholesterol in LDL [mass/volume] in serum or plasma by direct assay 91 mg/dL 1-129 Serum or plasma cholesterol in VLDL measurement (mass/volume) 24 mg/ dL 5-40 THYROID STIMULATING HORMONE - 12/09/17 07:50 THYROID STIMULATING HORMONE 2.61 u[iU]/mL 0.35-4.94 Encounters ACCT No. Visit Date/Time Discharge Status Pt. 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 [id number] 06/17/2017 09:59:00 06/17/2017 10:55:00 DIS Outpatient ALEXSANDER GUILLEN DO [facility] PREOP RIGHT CHRONIC ROTATOR CUFF TEAR WITH RETRACTION [id number] 06/11/2017 08:44:00 06/11/2017 23:59:59 CLS Outpatient WILLY UMANZOR MD [facility] RAD PAIN OF RT HIP JOINT [id number] 05/28/2017 18:21:00 05/28/2017 23:59:59 CLS Outpatient WILLY UMANZOR MD [facility] RAD M25.551 [id number] 05/14/2017 10:15:00 05/14/2017 23:59:59 CLS Outpatient SERGIO MARIA APRN [facility] RAD SOB R06.00 [id number] 04/30/2017 12:47:00 04/30/2017 23:59:59 CLS Outpatient SERGIO MARIA FILM DEVELOPER [facility] RT SOB R06.00 [id number] 04/30/2017 12:44:00 04/30/2017 23:59:59 CLS Outpatient SERGIO MARIA FILM DEVELOPER [facility] RAD LEG SWELLING M79.89 [id number] 04/22/2017 09:46:00 04/22/2017 23:59:59 CLS Preadmit SERGIO MARIA APRN [facility] SLEEP PARASOMNIA G47.50 [id number] 04/17/2017 08:15:00 04/17/2017 23:59:59 CLS Outpatient WILLY UMANZOR MD [facility] RAD RT SHOULDER PAIN [id number] 02/05/2017 09:32:00 02/05/2017 23:59:59 CLS Outpatient WILLY UMANZOR MD [facility] RAD LEFT KNEE PAIN,LEFT ANTERIOR SHOULDER PAIN [id number] 09/03/2016 09:50:00 09/03/2016 23:59:59 CLS Outpatient WILLY UMANZOR MD [facility] LAB GENERALIZED WEAKNESS [id number] 04/16/2016 10:23:00 04/16/2016 23:59:59 CLS Outpatient MICHOACANO PUENTES [facility] LAB DVT, DIASTOLIC DYSFUNCTION,HTN [id number] 02/29/2016 07:07:00 02/29/2016 07:46:00 DIS Emergency DANGELO CABRERA MD [facility] ER FACIAL SWELLING [id number] 02/25/2016 17:15:00 02/25/2016 19:02:00 DIS Emergency IVA BOND DO [facility] ER POISON OAK REACTION [id number] 01/23/2016 09:03:00 01/23/2016 23:59:59 CLS Outpatient WILLY UMANZOR MD [facility] RAD L4-L5 RADICULOPATHY,PAIN LT HIP [id number] 01/22/2016 09:28:00 01/22/2016 23:59:59 CLS Outpatient WILLY UMANZOR MD [facility] RAD PAIN LT HIP [id number] 11/17/2015 13:57:00 11/17/2015 23:59:59 CLS Outpatient WILLY UMANZOR MD [facility] RAD PAIN L NASAL AND ORBITAL BONES FOR 3 MONTHS [id number] 08/28/2015 13:30:00 09/01/2015 10:30:00 DIS Inpatient WILLY UMANZOR MD [facility] 4TH SUBACUTE CVA UNCONTROLLED HTN [id number] 07/25/2015 09:07:00 07/25/2015 12:19:00 DIS Emergency IVA BOND DO [facility] ER HEADACHE/DIZZINESS NAUSEA [id number] 02/17/2015 00:04:00 02/17/2015 02:10:00 DIS Emergency MONSERRAT MADDEN MD [facility] ER LEFT LEG SWELLING [id number] 02/11/2015 07:59:00 02/11/2015 10:04:00 DIS Emergency ADRIAN PACHECO DO [facility] ER POSS BLOOD CLOT [id number] 01/25/2015 11:48:00 01/29/2015 12:15:00 DIS Inpatient WILLY UMANZOR MD [facility] SURGICAL URINARY TRACT INFECTION GENERALIZED WEAKNESS [id number] 01/23/2015 08:56:00 01/23/2015 11:05:00 DIS Emergency MONSERRAT MADDEN MD [facility] ER LOW BACK PAIN NAUSEA/ HEADACHE [id number] 12/12/2014 11:08:00 12/12/2014 23:59:59 CLS Outpatient WILLY UMANZOR MD [facility] RAD FALL [id number] [id number] 08/15/2014 09:45:00 08/15/2014 23:59:59 CLS Outpatient WILLY UMANZOR MD [facility] RAD CHECK PULSE,DISTAL LEG, SMELLEY [id number] 07/04/2014 09:01:00 07/04/2014 23:59:59 CLS Outpatient WILLY UMANZOR MD [facility] LAB HYPOTHRYOIDISM [id number] 01/09/2014 10:36:00 01/09/2014 12:18:00 DIS Emergency DION CHAVIRA APRN [facility] ER HIP PAIN [id number] 12/19/2013 11:30:00 12/23/2013 08:00:00 DIS Inpatient WILLY UMANZOR MD [facility] 4TH LEFT SIDED NUMBNESS UTI [id number] 09/29/2013 14:08:00 09/29/2013 23:59:59 CLS Outpatient [id number] 09/01/2013 13:24:00 09/01/2013 23:59:59 CLS Outpatient [id number] 05/24/2013 14:32:00 05/24/2013 23:59:59 CLS Outpatient [id number] 02/25/2013 09:29:00 02/25/2013 11:09:00 DIS Emergency ADRIAN PACHECO DO [facility] ER KNOT ON LEFT LEG [id number] 01/22/2013 19:30:00 01/24/2013 12:56:00 DIS Inpatient WILLY UMANZOR MD [facility] 4TH ACUTE PYELONEPHRITIS [id number] 09/21/2014 08:47:00 Document Registration [id number] 10/13/2012 09:58:00 Document Registration [id number] 03/19/2012 13:37:00 Document Registration [id number] 01/27/2012 05:38:00 Document Registration [id number] 01/20/2012 08:53:00 Document Registration [id number] 01/04/2012 14:39:00 Document Registration [id number] 08/08/2011 10:32:00 Document Registration [id number] 04/05/2011 11:50:00 Document Registration [id number] 04/03/2011 10:14:00 Document Registration [id number] 02/19/2011 09:42:00 Document Registration [id number] 2010 12:04:00 Document Registration [id number] 03/08/2009 11:08:00 Document Registration
[2018-11-22 20:14] LABS: BASOPHILS # (AUTO) 0.1 10^3/uL (0.0-0.1); BASOPHILS % (AUTO) 1 % (0-10); EOSINOPHILS # (AUTO) 0.4 10^3/uL (0.0-0.3); EOSINOPHILS % (AUTO) 6 % (0-10); HEMATOCRIT 42 % (35-52); HEMOGLOBIN 14.1 G/DL (11.5-16.0); LYMPHOCYTES # (AUTO) 2.1 X 10^3 (1.0-4.0); LYMPHOCYTES % (AUTO) 30 % (12-44); MEAN CORPUSCULAR HEMOGLOBIN 29 PG (25-34); MEAN CORPUSCULAR HGB CONC 33 G/DL (32-36); MEAN CORPUSCULAR VOLUME 88 FL (80-99); MEAN PLATELET VOLUME 11.4 FL (7.4-10.4); MONOCYTES # (AUTO) 0.8 X 10^3 (0.0-1.0); MONOCYTES % (AUTO) 11 % (0-12); NEUTROPHILS # (AUTO) 3.6 X 10^3 (1.8-7.8); NEUTROPHILS % (AUTO) 52 % (42-75); PLATELET COUNT 237 10^3/uL (130-400); RED CELL DISTRIBUTION WIDTH 14.4 % (10.0-14.5); WHITE BLOOD COUNT 6.8 10^3/uL (4.3-11.0)
[2018-11-22 20:31] LABS: PROTHROMBIN TIME PATIENT 13.9 SEC (12.2-14.7)
[2018-11-22 20:35] LABS: ALANINE AMINOTRANSFERASE 19 U/L (0-55); ALBUMIN 4.2 GM/DL (3.2-4.5); ALKALINE PHOSPHATASE 74 U/L (40-136); BILIRUBIN,TOTAL 0.5 MG/DL (0.1-1.0); BUN/CREATININE RATIO 15; CARBON DIOXIDE 22 MMOL/L (21-32); CHLORIDE 108 MMOL/L (98-107); CREATININE SERUM 0.81 MG/DL (0.60-1.30); GFR ESTIMATED > 60; GLUCOSE 115 MG/DL (70-105); POTASSIUM 3.6 MMOL/L (3.6-5.0); SODIUM 144 MMOL/L (135-145); TOTAL PROTEIN 7.2 GM/DL (6.4-8.2)
--- NOTE | 2018-11-22 20:38 | Diagnostic Imaging Report ---
INDICATION: Right ankle pain. EXAMINATION: AP, oblique and lateral views of the right ankle were obtained. FINDINGS: No fracture or acute bony abnormality is seen. There is posterior calcaneal spurring. IMPRESSION: No acute abnormality in the right ankle. Dictated by: Dictated on workstation # [id number]
--- NOTE | 2018-11-22 21:02 | ED Lower Extremity ---
General Chief Complaint: Lower Extremity Stated Complaint: SWELLING AND BRUISING IN FRONT OF BOTH LEGS Nursing Triage Note: Ambulatory to rm 10 with walker. Pt reports bilat ankle edema and bruising to the R ankle. Pt reports R ankle is painful only with touch. Pt reports symptoms began this morning. Pt denies injury. Nursing Sepsis Screen: No Definite Risk Source: patient Exam Limitations: no limitations History of Present Illness Date Seen by Provider: November 22, 2018 Time Seen by Provider: 20:00 Allergies and Home Medications Allergies Coded Allergies: morphine (Verified Adverse Reaction, Mild, "MAKES ME CRAZY", TAKES LORTAB AT HOME, 01/26/15) Home Medications Amlodipine Besylate 10 Mg Tablet, 10 MG PO DAILY, (Reported) Aspirin 81 Mg Tablet.dr, 81 MG PO DAILY Prescribed by: REGINALDO YANEZ on 07/02/17 1304 Atorvastatin Calcium 20 Mg Tablet, 20 MG PO DAILY, (Reported) Clopidogrel Bisulfate 75 Mg Tablet, 75 MG PO DAILY, (Reported) Enalapril Maleate 20 Mg Tablet, 20 MG PO DAILY, (Reported) Hydrocodone/Acetaminophen 1 Each Tablet, 1 EA PO Q4H PRN for PAIN-MODERATE Prescribed by: REGINALDO YANEZ on 07/02/17 1304 Meloxicam 15 Mg Tablet, 15 MG PO DAILY, (Reported) Multivitamin 1 Each Tablet, 1 EACH PO DAILY, (Reported) Sennosides/Docusate Sodium 1 Each Tablet, 1 EA PO BID Prescribed by: REGINALDO YANEZ on 07/02/17 1304 Thyroid,Pork 30 Mg Tablet, 60 MG PO DAILY, (Reported) take 2 (30mg) tabs Past Spijlsx-Jmttqp-Nxtexg Hx Patient Social History Alcohol Use: Denies Use Recreational Drug Use: No 2nd Hand Smoke Exposure: No Recent Foreign Travel: No Contact w/Someone Who Travel: No Recent Infectious Disease Expo: No Recent Hopitalizations: No Physical Abuse: No Sexual Abuse: No Immunizations Up To Date Tetanus Booster (TDap): More than 5yrs Seasonal Allergies Seasonal Allergies: No Past Medical History Surgeries: Yes (BILAT. 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 Kidney Infection, Bladder Infection Gastrointestinal: No Gall Bladder Disease Musculoskeletal: Yes (CHRONIC L LOWER LEG/ANKLE SWELLING SINCE HIP REPLACEMENT , ) Arthritis, Chronic Back Pain Endocrine: Yes Hypothyroidsim HEENT: Yes Cataract Hearing Impairment: Hard of Hearing Cancer: No Psychosocial: No Integumentary: No Blood Disorders: No Adverse Reaction/Blood Tranf: No Family Medical History Congenital heart disease 19 MOTHER Congestive heart failure 19 MOTHER Family history: Cardiovascular disease 19 MOTHER Heart disease 19 MOTHER Myocardial infarction Stroke 19 FATHER No Family History of: Abdominal aortic aneurysm Riley's disease Alcoholism Aphasia Cancer Cancer of colon Cataract Chest pain Cystic fibrosis Dementia Dysphagia Family history: Allergy Family history: Alzheimer's disease Family history: Arthritis Family history: Asthma Family history: Breast disease Family history: Coronary thrombosis Family history: Diabetes mellitus Family history: Gastrointestinal disease Family history: Glaucoma Family history: Hypertension Family history: Osteoporosis Family history: Thyroid disorder Headache Hearing loss Hereditary disease History of - anemia History of - disorder History of - respiratory disease History of drug abuse Human immunodeficiency virus (HIV) seropositivity Hypercholesterolemia Infertile Kidney disease Malignant neoplasm of lung Parkinson's disease Prostate cancer Psychotic disorder Seizure disorder Tuberculosis Visual impairment Physical Exam Vital Signs Vital Signs - First Documented 11/22/18 19:53 Temp 97.9 Pulse 73 Resp 19 B/P (MAP) 152/74 (100) Pulse Ox 96 O2 Delivery Room Air Capillary Refill : Less Than 3 Seconds Height, Weight, BMI Height: 5'6.00" Weight: 164lbs. 0.0oz. 74.896162tv; 25.7 BMI Method:Stated Progress/Results/Core Measures Results/Orders Lab Results Laboratory Tests Test 11/22/18 20:05 Range/Units White Blood Count 6.8 4.3-11.0 10^3/uL Red Blood Count 4.81 4.35-5.85 10^6/uL Hemoglobin 14.1 11.5-16.0 G/DL Hematocrit 42 35-52 % Mean Corpuscular Volume 88 80-99 FL Mean Corpuscular Hemoglobin 29 25-34 PG Mean Corpuscular Hemoglobin Concent 33 32-36 G/DL Red Cell Distribution Width 14.4 10.0-14.5 % Platelet Count 237 130-400 10^3/uL Mean Platelet Volume 11.4 H 7.4-10.4 FL Neutrophils (%) (Auto) 52 42-75 % Lymphocytes (%) (Auto) 30 12-44 % Monocytes (%) (Auto) 11 0-12 % Eosinophils (%) (Auto) 6 0-10 % Basophils (%) (Auto) 1 0-10 % Neutrophils # (Auto) 3.6 1.8-7.8 X 10^3 Lymphocytes # (Auto) 2.1 1.0-4.0 X 10^3 Monocytes # (Auto) 0.8 0.0-1.0 X 10^3 Eosinophils # (Auto) 0.4 H 0.0-0.3 10^3/uL Basophils # (Auto) 0.1 0.0-0.1 10^3/uL Prothrombin Time 13.9 12.2-14.7 SEC INR Comment 1.0 0.8-1.4 Activated Partial Thromboplast Time 30 24-35 SEC D-Dimer 1.00 H 0.00-0.49 UG/ML Sodium Level 144 135-145 MMOL/L Potassium Level 3.6 3.6-5.0 MMOL/L Chloride Level 108 H 98-107 MMOL/L Carbon Dioxide Level 22 21-32 MMOL/L Anion Gap 14 5-14 MMOL/L Blood Urea Nitrogen 12 7-18 MG/DL Creatinine 0.81 0.60-1.30 MG/DL Estimat Glomerular Filtration Rate > 60 BUN/Creatinine Ratio 15 Glucose Level 115 H 70-105 MG/DL Calcium Level 10.0 8.5-10.1 MG/DL Corrected Calcium 9.8 8.5-10.1 MG/DL Total Bilirubin 0.5 0.1-1.0 MG/DL Aspartate Amino Transf (AST/SGOT) 22 5-34 U/L Alanine Aminotransferase (ALT/SGPT) 19 0-55 U/L Alkaline Phosphatase 74 40-136 U/L Total Protein 7.2 6.4-8.2 GM/DL Albumin 4.2 3.2-4.5 GM/DL My Orders Orders - HODA LEVIN Comprehensive Metabolic Panel (11/22/18 20:01) Cbc With Automated Diff (11/22/18 20:01) Protime With Inr (11/22/18 20:01) Partial Thromboplastin Time (11/22/18 20:) Fibrin Degradation Products (11/22/18 20:01) Ankle, Right, 3 Views (11/22/18 20:01) Vital Signs/I&O 11/22/18 19:53 Temp 97.9 Pulse 73 Resp 19 B/P (MAP) 152/74 (100) Pulse Ox 96 O2 Delivery Room Air Blood Pressure Mean: 100 Departure Impression Primary Impression: Possible DVT Additional Impressions: Elevated d-dimer right lower extremity swelling and ecchymosis Disposition: HOME, SELF-CARE Condition: Stable/Unchanged Departure-Patient Inst. Decision time for Depature: 21:01 Referrals: WILLY UMANZOR MD (PCP/Family) Primary Care Physician Patient Instructions: Deep Vein Thrombosis (Blood Clots in the Legs) (DC) Add. Discharge Instructions: Return back to the hospital tomorrow morning after 8 AM for your outpatient ultrasound. Do not leave the hospital after your study until you hear back from the emergency room doctor. Follow-up with Dr. Umanzor's office as needed. Return back to the emergency room for worsening symptoms, shortness of breath, chest pain, or any other concerns as needed. All discharge instructions reviewed with patient and/or family. Voiced understanding. HODA LEVIN November 22, 2018 21:02
[2018-11-22] MEDS ORDERED: ENOXAPARIN 80 MG/0.8 ML (LOVENOX) SYR SC ONE (21:15)
[2018-11-22 21:30] VITALS: BP 154/78
== END 2018-11-22 21:30 | disposition home or self-care (01) ==
LOC: EDUNIT# 19:23 → ER 19:26
DX: S90.02XA Contusion of left ankle, initial encounter (principal); R79.1 Abnormal coagulation profile; I10 Essential (primary) hypertension; E03.9 Hypothyroidism, unspecified; Z82.49 Family history of ischemic heart disease and other diseases of the circulatory system; Z87.19 Personal history of other diseases of the digestive system; Z86.73 Personal history of transient ischemic attack (TIA), and cerebral infarction without residual deficits; Z88.5 Allergy status to narcotic agent; Z79.82 Long term (current) use of aspirin; Z79.02 Long term (current) use of antithrombotics/antiplatelets; Z96.653 Presence of artificial knee joint, bilateral; Z96.642 Presence of left artificial hip joint; Z90.49 Acquired absence of other specified parts of digestive tract; Z90.710 Acquired absence of both cervix and uterus; Z86.718 Personal history of other venous thrombosis and embolism; X58.XXXA Exposure to other specified factors, initial encounter
CPT/HCPCS: 36415; 73610; 80053; 85025; 85379; 85610; 85730

== ENCOUNTER → 2018-11-23 | Outpatient (CLI) | payer MEDICARE, OTHER ==
--- NOTE | 2018-11-23 09:23 | Diagnostic Imaging Report ---
PROCEDURE: US right lower extremity venous. TECHNIQUE: Multiple Real-time grayscale images were obtained over the right lower extremity in various projections. Additional spectral analysis and color Doppler duplex images were also obtained. INDICATION: Right leg swelling and bruising. FINDINGS: There is no evidence of right lower extremity DVT. The right lower extremity deep venous system shows normal compressibility with normal response to augmentation and Valsalva. No fluid collection or mass is seen. IMPRESSION: No evidence of right lower extremity DVT. Dictated by: Dictated on workstation # [id number]
== END ==
LOC: RAD 08:18
PROVIDERS: ATTEND Nurse Practitioner
DX: S80.12XA Contusion of left lower leg, initial encounter (principal); S80.11XA Contusion of right lower leg, initial encounter

== ENCOUNTER → 2019-03-12 | Emergency (ER) | payer MEDICARE, OTHER ==
[~2019-03-12] VITALS: Ht 160 cm; Wt 73.9 kg
[~2019-03-12] MED LIST changes: +LIDOCAINE 1% INJ 20 ML 20 ML VIAL INJ ONE; +SULF1TAB35 PO
[2019-03-12 13:21] VITALS: BP 110/52
--- NOTE | 2019-03-12 13:41 | ED Upper Extremity ---
General Chief Complaint: Foreign Body Stated Complaint: SPLINTER Nursing Triage Note: Patient states she has a splinter in her left hand. Advised she was using a hoe with a wooden handle friday and noticed the splinter at that time. She advised she was able to remove part of the splinter but states the area is now red and tender. Nursing Sepsis Screen: No Definite Risk Source: patient Exam Limitations: no limitations History of Present Illness Date Seen by Provider: Mar 12, 2019 Time Seen by Provider: 13:17 Initial Comments Patient arrives with chief complaint of a splinter from the handle of a garden implement in her left hand between the thumb and index finger in the webbing approximately 2 days ago that is now red and swollen without discharge. No fevers chills. She has not had a tetanus shot in over 15 years and does not want one now. Allergies and Home Medications Allergies Coded Allergies: morphine (Verified Adverse Reaction, Mild, "MAKES ME CRAZY", TAKES LORTAB AT HOME, 01/26/15) Home Medications Amlodipine Besylate 10 Mg Tablet, 10 MG PO DAILY, (Reported) Aspirin 81 Mg Tablet.dr, 81 MG PO DAILY Prescribed by: REGINALDO YANEZ on 07/02/17 1304 Atorvastatin Calcium 20 Mg Tablet, 20 MG PO DAILY, (Reported) Clopidogrel Bisulfate 75 Mg Tablet, 75 MG PO DAILY, (Reported) Enalapril Maleate 20 Mg Tablet, 20 MG PO DAILY, (Reported) Hydrocodone/Acetaminophen 1 Each Tablet, 1 EA PO Q4H PRN for PAIN-MODERATE Prescribed by: REGINALDO YANEZ on 07/02/17 1304 Meloxicam 15 Mg Tablet, 15 MG PO DAILY, (Reported) Multivitamin 1 Each Tablet, 1 EACH PO DAILY, (Reported) Sennosides/Docusate Sodium 1 Each Tablet, 1 EA PO BID Prescribed by: REGINALDO YANEZ on 07/02/17 1304 Thyroid,Pork 30 Mg Tablet, 60 MG PO DAILY, (Reported) take 2 (30mg) tabs Patient Home Medication List Home Medication List Reviewed: Yes Review of Systems Constitutional: No chills, No diaphoresis EENTM: No ear discharge, No hearing loss Respiratory: No cough, No dyspnea on exertion Cardiovascular: No chest pain, No edema Gastrointestinal: No abdominal pain, No constipation Past Ywtgwbt-Dvokyk-Wikxcv Hx Patient Social History Alcohol Use: Denies Use Recreational Drug Use: No Smoking Status: Never a Smoker 2nd Hand Smoke Exposure: No Recent Foreign Travel: No Contact w/Someone Who Travel: No Recent Infectious Disease Expo: No Recent Hopitalizations: No Immunizations Up To Date Tetanus Booster (TDap): More than 5yrs Seasonal Allergies Seasonal Allergies: No Past Medical History Surgeries: Yes (BILAT. 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 Kidney Infection, Bladder Infection Gastrointestinal: No Gall Bladder Disease Musculoskeletal: Yes (CHRONIC L LOWER LEG/ANKLE SWELLING SINCE HIP REPLACEMENT, ) Arthritis, Chronic Back Pain Endocrine: Yes Hypothyroidsim HEENT: Yes Cataract Hearing Impairment: Hard of Hearing Cancer: No Psychosocial: No Integumentary: No Blood Disorders: No Adverse Reaction/Blood Tranf: No Family Medical History Congenital heart disease 19 MOTHER Congestive heart failure 19 MOTHER Family history: Cardiovascular disease 19 MOTHER Heart disease 19 MOTHER Myocardial infarction Stroke 19 FATHER No Family History of: Abdominal aortic aneurysm [place]'s disease Alcoholism Aphasia Cancer Cancer of colon Cataract Chest pain Cystic fibrosis Dementia Dysphagia Family history: Allergy Family history: Alzheimer's disease Family history: Arthritis Family history: Asthma Family history: Breast disease Family history: Coronary thrombosis Family history: Diabetes mellitus Family history: Gastrointestinal disease Family history: Glaucoma Family history: Hypertension Family history: Osteoporosis Family history: Thyroid disorder Headache Hearing loss Hereditary disease History of - anemia History of - disorder History of - respiratory disease History of drug abuse Human immunodeficiency virus (HIV) seropositivity Hypercholesterolemia Infertile Kidney disease Malignant neoplasm of lung Parkinson's disease Prostate cancer Psychotic disorder Seizure disorder Tuberculosis Visual impairment Physical Exam Vital Signs Vital Signs - First Documented 03/12/19 13:21 Temp 98.9 Pulse 69 Resp 14 B/P (MAP) 110/52 (71) Pulse Ox 97 O2 Delivery Room Air Capillary Refill : Less Than 3 Seconds Height, Weight, BMI Height: 5'3.00" Weight: 163lbs. 0.0oz. 73.800965zv; 25.7 BMI Method:Stated General Appearance: WD/WN, no apparent distress Cardiovascular: normal peripheral pulses, regular rate, rhythm Respiratory: no respiratory distress, no accessory muscle use Wrist: Yes normal inspection, Yes non-tender, Yes no evidence of injury, Yes normal ROM Hand: Left, swelling (, erythema approximately 2 cm x 3 cm with no palpable induration but an obvious central pore.) Procedures/Interventions Progress Clean the wound thoroughly with chlorhexidine and alcohol. Using 11 blade scapula small 3 mm incision was made and using the pickups we attempted to explore the wound but were not able to find any foreign body. We expressed serosanguineous discharge but no purulence. Progress/Results/Core Measures Results/Orders My Orders Orders - CIPRIANO OSEI Lidocaine 1% Inj 20 Ml (Xylocaine 1% Inj (03/12/19 13:30) Vital Signs/I&O 03/12/19 13:21 Temp 98.9 Pulse 69 Resp 14 B/P (MAP) 110/52 (71) Pulse Ox 97 O2 Delivery Room Air Blood Pressure Mean: 71 Departure Impression Primary Impression: Splinter in skin Additional Impression: Cellulitis and abscess of finger, unspecified Disposition: 01 HOME, SELF-CARE Condition: Stable Departure-Patient Inst. Decision time for Depature: 13:56 Referrals: TATO EDWARDS MD, FLOYD R MD (PCP/Family) Primary Care Physician Patient Instructions: Foreign Body in Skin (DC) Add. Discharge Instructions: Allow the wound to drain and just change the dressing as often as necessary for soiling or at least daily. Continue use regular soap and water. supervisor insecticide the antibiotics and take one tablet of Bactrim twice a day with food for the next 7 days to prevent infection. If the redness swelling spreads beyond the hand or you develop fever or other worrisome symptoms then you need to follow-up with Dr. Edwards. All discharge instructions reviewed with patient and/or family. Voiced understanding. Scripts Sulfamethoxazole/Trimethoprim (Bactrim Ds Tablet) 1 Each Tablet 1 EACH PO BID for 7 Days, #14 TAB 0 Refills Prov: CIPRIANO OSEI 03/12/19 CIPRIANO OSEI Mar 12, 2019 13:41
== END | disposition home or self-care (01) ==
LOC: EDUNIT# 12:50 → ER 12:51
DX: S60.552A Superficial foreign body of left hand, initial encounter (principal); L03.012 Cellulitis of left finger; L02.512 Cutaneous abscess of left hand; I10 Essential (primary) hypertension; E03.9 Hypothyroidism, unspecified; Z96.642 Presence of left artificial hip joint; Z86.718 Personal history of other venous thrombosis and embolism; Z86.73 Personal history of transient ischemic attack (TIA), and cerebral infarction without residual deficits; Z88.5 Allergy status to narcotic agent; Z79.82 Long term (current) use of aspirin; Z79.02 Long term (current) use of antithrombotics/antiplatelets; Z96.653 Presence of artificial knee joint, bilateral; Z90.49 Acquired absence of other specified parts of digestive tract; Z90.710 Acquired absence of both cervix and uterus; Z82.49 Family history of ischemic heart disease and other diseases of the circulatory system; W45.8XXA Other foreign body or object entering through skin, initial encounter
CPT/HCPCS: 99282

== ENCOUNTER 2019-05-25 14:20 | Emergency (ER) | payer MEDICARE, OTHER ==
[~2019-05-25] VITALS: Ht 160 cm; Wt 74.0 kg
[~2019-05-25 14:20] MED LIST changes: -LIDOCAINE 1% INJ 20 ML 20 ML VIAL INJ ONE
--- NOTE | 2019-05-25 14:43 | ED Lower Extremity ---
General Chief Complaint: Lower Extremity Stated Complaint: R HIP POPPED Nursing Triage Note: PT TO [facility] BY [facility] WITH CC OF HER RT HIP COMING OUT OF JOINT, HX OF BI LAT HIP REPLACEMENTS, STATES THIS IS THE 3RD TIME IT HAS HAPPENED. Nursing Sepsis Screen: No Definite Risk Source: patient Exam Limitations: no limitations (DION CHAVIRA APRN) History of Present Illness Date Seen by Provider: May 25, 2019 Time Seen by Provider: 14:42 Initial Comments To ER per EMS from home in [place] with reports that her right hip has popped out. Its prosthetic, [place] [address] franklin in [place]. She states it has popped out 3 times in the past 6 months, typically goes back into place on its own. She was sitting down in her chair when she felt a pop out. There is no fall or trauma. Onset: just prior to arrival Severity: moderate Pain/Injury Location: right hip Method of Injury: unknown Modifying Factors: Worse With Movement (DION CHAVIRA APRN) Allergies and Home Medications Allergies Coded Allergies: morphine (Verified Adverse Reaction, Mild, "MAKES ME CRAZY", TAKES LORTAB AT HOME, 01/26/15) Home Medications Amlodipine Besylate 10 Mg Tablet, 10 MG PO DAILY, (Reported) Aspirin 81 Mg Tablet.dr, 81 MG PO DAILY Prescribed by: REGINALDO YANEZ on 07/02/17 1304 Atorvastatin Calcium 20 Mg Tablet, 20 MG PO DAILY, (Reported) Clopidogrel Bisulfate 75 Mg Tablet, 75 MG PO DAILY, (Reported) Enalapril Maleate 20 Mg Tablet, 20 MG PO DAILY, (Reported) Hydrocodone Bit/Acetaminophen 1 Tab Tab, 1 EACH PO Q4-6HR PRN for PAIN-MODERATE Prescribed by: DION CHAVIRA on 05/25/19 1642 Hydrocodone/Acetaminophen 1 Each Tablet, 1 EA PO Q4H PRN for PAIN-MODERATE Prescribed by: REGINALDO YANEZ on 07/02/17 1304 Meloxicam 15 Mg Tablet, 15 MG PO DAILY, (Reported) Multivitamin 1 Each Tablet, 1 EACH PO DAILY, (Reported) Sennosides/Docusate Sodium 1 Each Tablet, 1 EA PO BID Prescribed by: REGINALDO YANEZ on 07/02/17 1304 Sulfamethoxazole/Trimethoprim 1 Each Tablet, 1 EACH PO BID Prescribed by: CIPRIANO OSEI on 03/12/19 1357 Thyroid,Pork 30 Mg Tablet, 60 MG PO DAILY, (Reported) take 2 (30mg) tabs Patient Home Medication List Home Medication List Reviewed: Yes (DION CHAVIRA APRN) Review of Systems Constitutional: see HPI EENTM: see HPI Respiratory: no symptoms reported Cardiovascular: no symptoms reported Genitourinary: no symptoms reported Musculoskeletal: see HPI Skin: no symptoms reported Psychiatric/Neurological: No Symptoms Reported (DION CHAVIRA APRN) Past Plxxuye-Qqtxqc-Uwvtkc Hx Patient Social History Alcohol Use: Denies Use Recreational Drug Use: No Smoking Status: Never a Smoker 2nd Hand Smoke Exposure: No Recent Foreign Travel: No Contact w/Someone Who Travel: No Recent Infectious Disease Expo: No Recent Hopitalizations: No Physical Abuse: No Sexual Abuse: No Mistreated: No Fear: No (DION CHAVIRA APRN) Immunizations Up To Date Tetanus Booster (TDap): More than 5yrs (DION CHAVIRA APRN) Seasonal Allergies Seasonal Allergies: No (DION CHAVIRA APRN) Past Medical History Surgeries: Yes (BILAT. 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 Genitourinary: Yes Kidney Infection, Bladder Infection Gastrointestinal: No Gall Bladder Disease Musculoskeletal: Yes (CHRONIC L LOWER LEG/ANKLE SWELLING SINCE HIP REPLACEMENT, ) Arthritis, Chronic Back Pain Endocrine: Yes Hypothyroidsim HEENT: Yes Cataract Hearing Impairment: Hard of Hearing Cancer: No Psychosocial: No Integumentary: No Blood Disorders: No Adverse Reaction/Blood Tranf: No (DION CHAVIRA APRN) Family Medical History Congenital heart disease 19 MOTHER Congestive heart failure 19 MOTHER Family history: Cardiovascular disease 19 MOTHER Heart disease 19 MOTHER Myocardial infarction Stroke 19 FATHER No Family History of: Abdominal aortic aneurysm Riley's disease Alcoholism Aphasia Cancer Cancer of colon Cataract Chest pain Cystic fibrosis Dementia Dysphagia Family history: Allergy Family history: Alzheimer's disease Family history: Arthritis Family history: Asthma Family history: Breast disease Family history: Coronary thrombosis Family history: Diabetes mellitus Family history: Gastrointestinal disease Family history: Glaucoma Family history: Hypertension Family history: Osteoporosis Family history: Thyroid disorder Headache Hearing loss Hereditary disease History of - anemia History of - disorder History of - respiratory disease History of drug abuse Human immunodeficiency virus (HIV) seropositivity Hypercholesterolemia Infertile Kidney disease Malignant neoplasm of lung Parkinson's disease Prostate cancer Psychotic disorder Seizure disorder Tuberculosis Visual impairment Physical Exam Vital Signs Vital Signs - First Documented 05/25/19 05/25/19 14:29 15:45 Temp 35.8 Pulse 73 Resp 20 B/P (MAP) 119/49 (72) Pulse Ox 97 O2 Delivery Room Air O2 Flow Rate 2.00 2.00 (KALEY LEUNG MD) Vital Signs Capillary Refill : Less Than 3 Seconds (DION CHAVIRA APRN) Height, Weight, BMI Height: 5'3.00" Weight: 163lbs. 0.0oz. 73.611540lb; 28.00 BMI Method:Stated General Appearance: WD/WN, no apparent distress, other HEENT: PERRL/EOMI, normal ENT inspection Neck: non-tender, full range of motion Respiratory: no respiratory distress, no accessory muscle use Hips: left hip non-tender, left hip normal inspection; right hip limited range of motion, right hip pain, right hip soft tissue tenderness Legs: bilateral leg non-tender, bilateral leg normal inspection, bilateral leg normal range of motion Knees: bilateral knee non-tender, bilateral knee normal inspection, bilateral knee normal range of motion Ankles: bilateral ankle non-tender, bilateral ankle normal inspection, bilateral ankle normal range of motion Feet: bilateral foot non-tender, bilateral foot normal inspection, bilateral foot normal range of motion Neurologic/Psychiatric: alert, normal mood/affect, oriented x 3 Skin: normal color, warm/dry (DION CHAVIRA APRN) Procedures/Interventions Patient Education: Explained Benefits, Explained Risks, Pt. Ack. Understanding Agreement on procedure with pt: Yes Breath Sounds per Auscultation: Clear Heart Sounds per Auscultation: Regular Airway Exam: Mouth opens >2 fingers, Neck Full Range of Motion, Visulation of Uvula Sedation Adminstration Time: 15:55 Total Time spent in CS 20 min Re-examination Time: 16:15 Re-examination Tolerated procedure well with no complications. No noted hypoxia. No other adverse effects. Sedation with 25 g of fentanyl and 15 mg of etomidate. (KALEY LEUNG MD) Progress/Results/Core Measures Results/Orders Medications Given in ED Current Medications Medications Dose Ordered Sig/Joel Route Start Time Stop Time Status Last Admin Dose Admin Etomidate 15 mg ONCE ONCE IV 05/25/19 15:30 05/25/19 15:31 DC 05/25/19 15:50 15 MG Fentanyl Citrate 25 mcg ONCE PRN IVP 05/25/19 15:30 05/25/19 15:54 25 MCG Ondansetron HCl 4 mg ONCE ONCE IVP 05/25/19 15:30 05/25/19 15:31 DC 05/25/19 15:50 4 MG (KALEY LEUNG MD) Vital Signs/I&O 05/25/19 05/25/19 05/25/19 05/25/19 14:29 15:45 15:50 15:54 Temp 35.8 36.7 35.8 Pulse 73 72 Resp 20 20 B/P (MAP) 119/49 (72) 140/67 137/65 130/96 147/75 150/71 135/64 132/68 Pulse Ox 97 99 O2 Delivery Room Air Nasal Cannula Nasal Cannula O2 Flow Rate 2.00 6.00 2.00 (KALEY LEUNG MD) Blood Pressure Mean: 72 POS Departure Impression Primary Impression: Hip dislocation, right Qualified Codes: S73.004A - Unspecified dislocation of right hip, initial encounter Disposition: 01 HOME, SELF-CARE Condition: Stable Departure-Patient Inst. Decision time for Depature: 16:41 (DION CHAVIRA APRN) Referrals: TRENTON DIAZ MD, JOHN T MD SEGLIE, FLOYD R MD (PCP/Family) Primary Care Physician ALEXSANDER GUILLEN MICHAEL P MD Patient Instructions: Hip Abduction Brace, Moderate Sedation in Adults (DC) Add. Discharge Instructions: 1. Return to ER for any concerns 2. Follow-up with your doctor next week 3. Keep pillow between legs to keep them spread as much as possible for the next 2-3 days. Medication as directed. All discharge instructions reviewed with patient and/or family. Voiced understanding. Scripts Hydrocodone Bit/Acetaminophen (Hydrocodone/Acetaminophen 5/325mg Tablet) 1 Tab Tab 1 EACH PO Q4-6HR PRN for PAIN-MODERATE MDD 10 for 3 Days, #14 TAB Prov: DION CHAVIRA APRN 05/25/19 DION CHAVIRA APRN May 25, 2019 14:43 KALEY ALVAREZ MD May 25, 2019 17:01 POS
--- NOTE | 2019-05-25 15:09 | Diagnostic Imaging Report ---
INDICATION: Right hip pain. FINDINGS: AP view of pelvis shows postsurgical changes from bilateral hip arthroplasty. The right hip is dislocated posteriorly. Left hip appears to be grossly intact. There is no acute fracture. IMPRESSION: Dislocated right hip. Dictated by: Dictated on workstation # [id number]
[2019-05-25] MEDS ORDERED: ETOMIDATE IV SOLN 20 MG/10 ML VIAL IV ONE (15:30)
[2019-05-25] MEDS ORDERED: ONDANSETRON 4 MG/2 ML (SDV) Z0FRAN IVP ONE (15:30)
[2019-05-25] MEDS ORDERED: NS IV 500 ML 500 ML IV SCH (15:30)
[2019-05-25] MEDS ORDERED: fentaNYL INJECTION 100 MCG/2 ML AMP IVP PRN (15:30)
--- NOTE | 2019-05-25 16:40 | Diagnostic Imaging Report ---
INDICATION: Right hip dislocation. FINDINGS: Post reduction views of the right hip show successful interval reduction of the previously dislocated right hip. There is no acute fracture. IMPRESSION: Successful reduction of the right hip. Dictated by: Dictated on workstation # [id number]
[2019-05-25] MEDS ORDERED: ACHD5005 PO (16:42)
--- NOTE | 2019-05-25 17:00 | NUR ---
PT AMBULATED TO THE BATHROOM WITH WALKER, NO ASSISTANCE NEEDED.
[2019-05-25 17:05] VITALS: BP 133/68
== END 2019-05-25 17:05 | disposition home or self-care (01) ==
LOC: EDUNIT# 14:20 → ER 14:21
DX: S73.004A Unspecified dislocation of right hip, initial encounter (principal); I10 Essential (primary) hypertension; E03.9 Hypothyroidism, unspecified; Z86.718 Personal history of other venous thrombosis and embolism; Z86.73 Personal history of transient ischemic attack (TIA), and cerebral infarction without residual deficits; Z90.49 Acquired absence of other specified parts of digestive tract; Z90.710 Acquired absence of both cervix and uterus; Z79.82 Long term (current) use of aspirin; Z96.643 Presence of artificial hip joint, bilateral; Z88.5 Allergy status to narcotic agent; Z79.02 Long term (current) use of antithrombotics/antiplatelets; Z82.49 Family history of ischemic heart disease and other diseases of the circulatory system; X58.XXXA Exposure to other specified factors, initial encounter
CPT/HCPCS: 73502; 93041

== ENCOUNTER 2020-05-12 10:10 | Emergency (ER) | payer MEDICARE, OTHER ==
[~2020-05-12] VITALS: Ht 160 cm; Wt 79.0 kg
[~2020-05-12 10:10] MED LIST changes: +ACHYD1T PO; +AMLO-251 PO; -AMLO10TA7 PO; -ENAL20TA PO; +ENAL20TA16 PO; -HYDR-3820 PO; +MULT-567 PO; -MULT1TAB69 PO
--- NOTE | 2020-05-12 10:34 | ED Lower Extremity ---
General Chief Complaint: Trauma-Non Activation Stated Complaint: FALL Source: patient Exam Limitations: no limitations (LEXA NEUMANN MD) History of Present Illness Date Seen by Provider: May 12, 2020 Time Seen by Provider: 10:15 Initial Comments Patient is an 80-year-old female who presents to the emergency room by ambulance after being found outside on the ground this morning. Patient states that she was going out to feed the dog when she had a mechanical trip and fall. She states actually she did not trip over anything her feet just went out from underneath her. Patient landed on her right hip. She has bilateral prosthetic hips and has had dislocations of her hip before. She complains of pain in the posterior right hip. She denies any knee pain ankle pain or foot pain. She has chronic pain in her left leg because she states the hip was put" crooked". Patient did not hit her head did not have a loss of consciousness. All other review of systems reviewed and negative except as stated. Onset: just prior to arrival (729) Pain/Injury Location: right hip Method of Injury: fell (LEXA NEUMANN MD) Allergies and Home Medications Allergies Coded Allergies: morphine (Verified Adverse Reaction, Mild, "MAKES ME CRAZY", TAKES LORTAB AT HOME, 01/26/15) Home Medications Amlodipine Besylate 10 Mg Tablet, 10 MG PO DAILY, (Reported) Aspirin 81 Mg Tablet.dr, 81 MG PO DAILY Prescribed by: REGINALDO YANEZ on 07/02/17 1304 Atorvastatin Calcium 20 Mg Tablet, 20 MG PO DAILY, (Reported) Clopidogrel Bisulfate 75 Mg Tablet, 75 MG PO DAILY, (Reported) Enalapril Maleate 20 Mg Tablet, 20 MG PO DAILY, (Reported) Hydrocodone Bit/Acetaminophen 1 Each Tablet, 1 EA PO Q4H PRN for PAIN-MODERATE Prescribed by: REGINALDO YANEZ on 07/02/17 1304 Hydrocodone Bit/Acetaminophen 1 Tab Tab, 1 EACH PO Q4-6HR PRN for PAIN-MODERATE Prescribed by: DION CHAVIRA on 05/25/19 1642 Meloxicam 15 Mg Tablet, 15 MG PO DAILY, (Reported) Multivitamin 1 Each Tablet, 1 EACH PO DAILY, (Reported) Sennosides/Docusate Sodium 1 Each Tablet, 1 EA PO BID Prescribed by: REGINALDO YANEZ on 07/02/17 1304 Sulfamethoxazole/Trimethoprim 1 Each Tablet, 1 EACH PO BID Prescribed by: CIPRIANO OSEI on 03/12/19 1357 Thyroid,Pork 30 Mg Tablet, 60 MG PO DAILY, (Reported) take 2 (30mg) tabs Patient Home Medication List Home Medication List Reviewed: Yes (DION CHAVIRA APRN) Review of Systems Constitutional: no symptoms reported EENTM: see HPI Respiratory: no symptoms reported Cardiovascular: no symptoms reported Gastrointestinal: no symptoms reported Genitourinary: no symptoms reported Musculoskeletal: joint pain (Right hip) Skin: no symptoms reported (LEXA NEUMANN MD) Past Foyrsdd-Hsizut-Dbnvye Hx Patient Social History 2nd Hand Smoke Exposure: No Recent Hopitalizations: No (LEXA NEUMANN MD) Immunizations Up To Date Tetanus Booster (TDap): More than 5yrs (LEXA NEUMANN MD) Seasonal Allergies Seasonal Allergies: No (LEXA NEUMANN MD) Past Medical History Surgeries: Yes (BILAT. 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 Genitourinary: Yes Kidney Infection, Bladder Infection Gastrointestinal: No Gall Bladder Disease Musculoskeletal: Yes (CHRONIC L LOWER LEG/ANKLE SWELLING SINCE HIP REPLACEMENT, ) Arthritis, Chronic Back Pain Endocrine: Yes Hypothyroidsim HEENT: Yes Cataract Hearing Impairment: Hard of Hearing Cancer: No Psychosocial: No Integumentary: No Blood Disorders: No Adverse Reaction/Blood Tranf: No (LEXA NEUMANN MD) Family Medical History Congenital heart disease 19 MOTHER Congestive heart failure 19 MOTHER Family history: Cardiovascular disease 19 MOTHER Heart disease 19 MOTHER Myocardial infarction Stroke 19 FATHER No Family History of: Abdominal aortic aneurysm Riley's disease Alcoholism Aphasia Cancer Cancer of colon Cataract Chest pain Cystic fibrosis Dementia Dysphagia Family history: Allergy Family history: Alzheimer's disease Family history: Arthritis Family history: Asthma Family history: Breast disease Family history: Coronary thrombosis Family history: Diabetes mellitus Family history: Gastrointestinal disease Family history: Glaucoma Family history: Hypertension Family history: Osteoporosis Family history: Thyroid disorder Headache Hearing loss Hereditary disease History of - anemia History of - disorder History of - respiratory disease History of drug abuse Human immunodeficiency virus (HIV) seropositivity Hypercholesterolemia Infertile Kidney disease Malignant neoplasm of lung Parkinson's disease Prostate cancer Psychotic disorder Seizure disorder Tuberculosis Visual impairment Physical Exam Vital Signs Vital Signs - First Documented 05/12/20 05/12/20 10:10 11:15 Temp 35.7 Pulse 75 Resp 18 B/P (MAP) 145/91 (109) Pulse Ox 98 O2 Delivery Nasal Cannula O2 Flow Rate 2.00 2.00 (DION CHAVIRA APRN) Vital Signs Capillary Refill : (LEXA NEUMANN MD) Height, Weight, BMI Height: 5'3.00" Weight: 163lbs. 0.0oz. 73.937901kq; 28.00 BMI Method:Stated General Appearance: WD/WN, no apparent distress Neck: full range of motion Cardiovascular: regular rate, rhythm Respiratory: lungs clear, normal breath sounds, no respiratory distress Gastrointestinal: normal bowel sounds, non tender, soft Hips: right hip bone tenderness, right hip limited range of motion Legs: bilateral leg non-tender, bilateral leg normal inspection Knees: bilateral knee non-tender, bilateral knee normal inspection Ankles: bilateral ankle non-tender, bilateral ankle normal inspection Neurologic/Tendon: normal sensation (At patient's baseline, she states she has diminished sensation really throughout her left lower extremity secondary to previous stroke), normal motor functions, normal tendon functions, responds to pain Neurologic/Psychiatric: no motor/sensory deficits, alert, normal mood/affect, oriented x 3 Skin: normal color, warm/dry (LEXA NEUMANN MD) Procedures/Interventions Procedure: procedural sedation Patient Education: Explained Benefits, Explained Risks, Pt. Ack. Understanding Agreement on procedure with pt: Yes Breath Sounds per Auscultation: Clear Heart Sounds per Auscultation: Regular Airway Exam: Mouth opens >2 fingers, Neck Full Range of Motion, Visulation of Uvula Sedation Adminstration Time: 11:15 Total Time spent in CS 20 minutes Successful hip reduction, patient tolerated procedure well Re-examination Time: 11:45 Re-examination 1206 (LEXA NEUMANN MD) Progress/Results/Core Measures Results/Orders My Orders Orders - DION CHAVIRA APRN Pelvis (05/12/20 11:27) (DION CHAVIRA APRN) Medications Given in ED (DION CHAVIRA APRN) Vital Signs/I&O 05/12/20 05/12/20 05/12/20 05/12/20 10:10 11:15 12:00 13:51 Temp 35.7 36.1 Pulse 75 76 76 Resp 18 20 18 B/P (MAP) 145/91 (109) 131/89 116/75 Pulse Ox 98 98 99 O2 Delivery Nasal Cannula Nasal Cannula O2 Flow Rate 2.00 2.00 2.00 05/13/20 00:00 Intake Total 1000 ml Balance 1000 ml (DION CHAVIRA APRN) Progress Progress Note : Time: 12:07 Progress Note 80-year-old female presents by EMS after a fall, dislocation right prosthetic hip. Evaluation today includes a physical exam, x-rays of the pelvis and right hip. After identification of the dislocation the patient was consented for procedural sedation for closed reduction of the right hip dislocation. Patient's Mallampati score was a 1. Patient was sedated with 25 mg of fentanyl for pain and 20 mg of etomidate for sedation. Supplemental oxygen IV fluids in place. Traction and flexion of the right hip was accomplished reducing the righ t hip dislocation. Patient remained neurovascularly intact post procedure. A knee immobilizer was placed to help the patient not to flex her hip. Patient tolerated the procedure well and after sedation was awake alert and oriented without complaints. Patient will be sent home with a knee immobilizer in place and recommended to follow-up with orthopedics, patient verbalizes understanding all questions are sought and answered and she is stable for discharge at this time. (LEXA NEUMANN MD) Departure Impression Primary Impression: Dislocation of hip joint prosthesis Qualified Codes: T84.029A - Dislocation of unspecified internal joint prosthesis, initial encounter; Z96.649 - Presence of unspecified artificial hip joint Disposition: 01 HOME, SELF-CARE Condition: Stable Departure-Patient Inst. Decision time for Depature: 12:09 (LEXA NEUMANN MD) Referrals: WILLY UMANZOR MD (PCP/Family) Primary Care Physician Patient Instructions: Hip Dislocation (DC), Moderate Sedation in Adults Add. Discharge Instructions: Please keep the knee immobilizer in place for the next couple of days so that you do not redislocate your hip. Please call and follow-up with an orthopedic doctor for your recurrent hip dislocations. Return to the emergency department for any new complaints, concerns or emergent symptoms. All discharge instructions reviewed with patient and/or family. Voiced understanding. Copy Copies To 1: WILLY UMANZOR MD, KATHRYN M MD May 12, 2020 10:33 DION CHAVIRA APRN May 12, 2020 13:45
[2020-05-12] MEDS ORDERED: NS IV 1000 ML 1,000 ML IV STA (11:11)
[2020-05-12] MEDS ORDERED: fentaNYL INJECTION 100 MCG/2 ML AMP IVP PRN (11:15)
[2020-05-12] MEDS ORDERED: ETOMIDATE IV SOLN 20 MG/10 ML VIAL IV ONE (11:15)
--- NOTE | 2020-05-12 11:23 | Diagnostic Imaging Report ---
EXAMINATION: Pelvis and right hip at 1054 AM INDICATION: Hip pain A single AP view of the pelvis and AP and lateral views of the right hip were obtained. The prior exam of 05/25/2019 noted that the total hip prosthesis on the right had been dislocated. The dislocation was subsequently reduced on the same day. On this exam, there is again evidence of dislocation of the total hip prosthesis on the right. Specifically, the femoral component now lies anteriorly and superiorly to the acetabular component. There is no fracture or acute bony abnormality noted. The total hip prosthesis on the left seen previously appear stable. No other acute bony abnormality is appreciated. As noted on the prior exam, there is severe degenerative disc and bony disease throughout the visualized lumbar spine. IMPRESSION: 1. 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 There is no fracture identified but a follow-up exam after reduction would be recommended. 2. The results were called to Lona in the Emergency Room at the time of this dictation. CRITICAL FINDING Dictated by: Dictated on workstation # [id number]
--- NOTE | 2020-05-12 11:56 | Diagnostic Imaging Report ---
INDICATION: Right hip dislocation. Status post reduction. COMPARISON: 05/12/2020 FINDINGS: Single frontal radiographic view of the pelvis was obtained and demonstrates interval reduction of previously described right hip dislocation. Postsurgical changes of previous bilateral total hip replacements are again identified. Femoral and acetabular components are now appropriately positioned bilaterally. There is no evidence of periprosthetic fracture. No unexpected radiopaque foreign bodies are seen. No new acute osseous abnormality of the pelvis is identified. IMPRESSION: 1. Status post successful reduction of right hip dislocation. 2. Postsurgical changes of previous bilateral total hip replacements. No evidence of periprosthetic fracture. Dictated by: Dictated on workstation # [id number]
--- NOTE | 2020-05-12 12:00 | NUR ---
PT UP TO [facility] W ASSISTANCE. KNEE IMMOBILIZER IN PLACE ON R LEG
--- NOTE | 2020-05-12 12:21 | NUR ---
CALLED DAUGHTER GOING TO SEE IF FRIEND CAN PICK HER UP
[2020-05-12 13:51] VITALS: BP 116/75
== END 2020-05-12 14:22 | disposition home or self-care (01) ==
LOC: EDUNIT# 10:16 → ER 10:18
DX: T84.020A Dislocation of internal right hip prosthesis, initial encounter (principal); I10 Essential (primary) hypertension; G89.29 Other chronic pain; M54.9 Dorsalgia, unspecified; Z88.5 Allergy status to narcotic agent; Z82.49 Family history of ischemic heart disease and other diseases of the circulatory system; Z79.82 Long term (current) use of aspirin; W01.0XXA Fall on same level from slipping, tripping and stumbling without subsequent striking against object, initial encounter
CPT/HCPCS: 72170; 73502; 93041; 99285; L1830

== ENCOUNTER 2020-07-10 17:45 | Emergency (ER) | payer MEDICARE, OTHER ==
[~2020-07-10] VITALS: Ht 160 cm; Wt 81.0 kg
[2020-07-10 17:45] VITALS: BP 171/99
[2020-07-10] MEDS ORDERED: fentaNYL INJECTION 100 MCG/2 ML AMP IVP STA (18:07)
--- NOTE | 2020-07-10 18:36 | ED Hip Pain/Injury ---
General Chief Complaint: Hip/Pelvic Problems Stated Complaint: R HIP DISLOCATION Nursing Triage Note: STATES SHE WAS PUTTING ITEMS IN HER FREEZER AND HER LEFT HIP POPPED OUT OF PLACE. STATES IT HAS DONE THIS TWICE BEFORE. Source: patient History of Present Illness Date Seen by Provider: Jul 10, 2020 Time Seen by Provider: 18:00 Initial Comments PT ARRIVES VIA EMS FROM HOME--PT LIVES ALONE C/O RIGHT HIP PAIN--STATES IT "POPPED OUT" JUST PRIOR TO ARRIVAL, WHILE PUTTING FOOD IN REFRIGERATOR. WAS STANDING UPRIGHT AT THE TIME HAD RIGHT TOTAL HIP REPLACEMENT [place] [address] MEJIA AT [facility], WHO IS NOW RETIRED. HAS HAD SPONTANEOUS DISLOCATION AT LEAST TWICE IN THE PAST 05/2019 AND 05/12/20, HAS BEEN PRESCRIBED A HIP STABILIZER DEVICE (LATER DESCRIBES THIS A KNEE IMMOBILIZER) BUT DOES NOT WEAR IT--STATES SHE CANNOT PUT IT ON BY HERSELF. WAS TOLD SHE WAS "NOT A CANDIDATE" FOR REVISION BY A AT [address] HAS HAD SAME PROBLEMS WITH LEFT HIP REPLACEMENT AND HAD REVISION ON LEFT HIP DONE SEVERAL YEARS AGO BY DR. DE LEON. NO PARESTHESIAS OR MOTOR DEFICITS NO DIRECT TRAUMA ANYWHERE Other PCP: DR. [facility]--HAS SEEN ORTHOPEDIC SURGEON IN PAST AT [address], FOR THIS AND SHOULDER PROBLEMS. Allergies and Home Medications Allergies Coded Allergies: morphine (Verified Adverse Reaction, Mild, "MAKES ME CRAZY", TAKES LORTAB AT HOME, 01/26/15) Home Medications Amlodipine Besylate 10 Mg Tablet, 10 MG PO DAILY, (Reported) Aspirin 81 Mg Tablet., 81 MG PO DAILY Prescribed by: REGINALDO YANEZ on 07/02/17 1304 Atorvastatin Calcium 20 Mg Tablet, 20 MG PO DAILY, (Reported) Clopidogrel Bisulfate 75 Mg Tablet, 75 MG PO DAILY, (Reported) Enalapril Maleate 20 Mg Tablet, 20 MG PO DAILY, (Reported) Hydrocodone Bit/Acetaminophen 1 Each Tablet, 1 EA PO Q4H PRN for PAIN-MODERATE Prescribed by: REGINALDO YANEZ on 07/02/17 1304 Hydrocodone Bit/Acetaminophen 1 Tab Tab, 1 EACH PO Q4-6HR PRN for PAIN-MODERATE Prescribed by: DION CHAVIRA on 05/25/19 1642 Meloxicam 15 Mg Tablet, 15 MG PO DAILY, (Reported) Multivitamin 1 Each Tablet, 1 EACH PO DAILY, (Reported) Sennosides/Docusate Sodium 1 Each Tablet, 1 EA PO BID Prescribed by: REGINALDO YANEZ on 07/02/17 1304 Sulfamethoxazole/Trimethoprim 1 Each Tablet, 1 EACH PO BID Prescribed by: CIPRIANO OSEI on 03/12/19 1357 Thyroid,Pork 30 Mg Tablet, 60 MG PO DAILY, (Reported) take 2 (30mg) tabs Patient Home Medication List Home Medication List Reviewed: Yes Review of Systems Constitutional: no symptoms reported Musculoskeletal: see HPI Skin: no symptoms reported Psychiatric/Neurological: No Symptoms Reported Past Jbhhyii-Qibsok-Ijhpny Hx Past Med/Social Hx: Reviewed and Corrections made Patient Social History Alcohol Use: Denies Use Recreational Drug Use: No Smoking Status: Never a Smoker 2nd Hand Smoke Exposure: No Recent Foreign Travel: No Contact w/Someone Who Travel: No Recent Infectious Disease Expo: No Recent Hopitalizations: No Immunizations Up To Date Tetanus Booster (TDap): More than 5yrs Seasonal Allergies Seasonal Allergies: No Past Medical History Surgeries: Yes (BILAT. 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: Hysterectomy, Menopausal Genitourinary: Yes Kidney Infection, Bladder Infection Gastrointestinal: Yes Gall Bladder Disease Musculoskeletal: Yes (CHRONIC L LOWER LEG/ANKLE SWELLING SINCE HIP REPLAC;,TRISHA AT TKR/TKR/R SHOULD) Arthritis, Chronic Back Pain Endocrine: Yes Hypothyroidsim HEENT: Yes Cataract Hearing Impairment: Hard of Hearing Cancer: No Psychosocial: No Integumentary: No Blood Disorders: No Adverse Reaction/Blood Tranf: No Family Medical History Congenital heart disease 19 MOTHER Congestive heart failure 19 MOTHER Family history: Cardiovascular disease 19 MOTHER Heart disease 19 MOTHER Myocardial infarction Stroke 19 FATHER No Family History of: Abdominal aortic aneurysm [place]'s disease Alcoholism Aphasia Cancer Cancer of colon Cataract Chest pain Cystic fibrosis Dementia Dysphagia Family history: Allergy Family history: Alzheimer's disease Family history: Arthritis Family history: Asthma Family history: Breast disease Family history: Coronary thrombosis Family history: Diabetes mellitus Family history: Gastrointestinal disease Family history: Glaucoma Family history: Hypertension Family history: Osteoporosis Family history: Thyroid disorder Headache Hearing loss Hereditary disease History of - anemia History of - disorder History of - respiratory disease History of drug abuse Human immunodeficiency virus (HIV) seropositivity Hypercholesterolemia Infertile Kidney disease Malignant neoplasm of lung Parkinson's disease Prostate cancer Psychotic disorder Seizure disorder Tuberculosis Visual impairment PAST SURGICAL HISTORY: -BILATERAL KNEE REPLACEMENT -BILATERAL HIP REPLACEMENTS -REVISION LEFT HIP REPLACMENT -RIGHT SHOULDER REPLACEMENT RECURRENT HIP DISLOCATIONS OF PROSTHETIC HIPS, WITH CLOSED REDUCTIONS. Physical Exam Vital Signs Vital Signs - First Documented 07/10/20 07/10/20 17:45 19:52 Temp 36.5 Pulse 71 Resp 16 B/P (MAP) 171/99 (123) Pulse Ox 98 O2 Delivery Room Air O2 Flow Rate 2.00 Capillary Refill : Less Than 3 Seconds Height, Weight, BMI Height: 5'3.00" Weight: 163lbs. 0.0oz. 73.071719xp; 31.00 BMI Method:Stated General Appearance: No Apparent Distress, WD/WN Cardiovascular: Regular Rate, Rhythm, No Murmur, Normal Peripheral Pulses Respiratory: Normal Breath Sounds, No Accessory Muscle Use, No Respiratory Distress Extremity: Normal Capillary Refill, Pedal Edema (1+ BILATERALLY), Other (TENDERNESS TO RIGHT HIP AREA. RIGHT LEG SHORTENED AND EXTERNALLY ROTATED. DISTAL MOTOR/SENSORY/VASCULAR INTACT. ) Neurologic/Psychiatric: Alert, Oriented x3, No Motor/Sensory Deficits, Normal Mood/Affect Procedures/Interventions Patient Education: Explained Benefits, Explained Risks, Pt. Ack. Understanding Agreement on procedure with pt: Yes Breath Sounds per Auscultation: Clear Heart Sounds per Auscultation: Regular Airway Exam: Mouth opens >2 fingers, Neck Full Range of Motion, Visulation of Uvula Sedation Adminstration Time: 1115 SEE NURSING NOTES Re-examination Time: 1145 Splinting and Joint Reduction : Location: RIGHT HIP Pre-Proc Neuro Vasc Exam: normal Post-Proc Neuro Vasc Exam: normal Joint Reduction Site: hip (R) Pre-Procedure NV Exam: Yes post joint reduction film: joint reduced Progress SEE NURSING NOTES FOR DETAILS Ordered: Other (PELVIC BINDER) Progress/Results/Core Measures Results/Orders My Orders Orders - ADRIAN PACHECO DO Pelvis With Right Hip 2-3views (07/10/20 18:07) Ed Iv/Invasive Line Start (07/10/20 18:07) Monitor-Rhythm Ecg Trace Only (07/10/20 18:07) Fentanyl Injection (Sublimaze Injection (07/10/20 18:07) Catheter(Urinary) Insert & Ass 03,15 (07/10/20 19:15) Etomidate Injection (Amidate Injection) (07/10/20 19:40) Ondansetron Injection (Zofran Injectio (07/10/20 19:40) Hip, Right (Single View) (07/10/20 19:57) Ondansetron Injection (Zofran Injectio (07/10/20 20:15) Etomidate Injection (Amidate Injection) (07/10/20 20:15) Fentanyl Injection (Sublimaze Injection (07/10/20 20:15) Ns Iv 1000 Ml (Sodium Chloride 0.9%) (07/10/20 20:15) End Tidal Co2 (07/10/20 20:11) Rx-Hydrocodone/Apap 5-325 Mg (Rx-Vicodin (07/10/20 20:15) O2 (07/10/20 20:13) Medications Given in ED Current Medications Medications Dose Ordered Sig/Joel Route Start Time Stop Time Status Last Admin Dose Admin Acetaminophen/ Hydrocodone Bitart 1 ea Q4H PRN PO 07/10/20 20:15 07/10/20 22:09 1 EA Etomidate 20 mg ONCE ONCE IV 07/10/20 20:15 07/10/20 20:16 DC 07/10/20 20:09 20 MG Fentanyl Citrate 25 mcg ONCE ONCE IVP 07/10/20 20:15 07/10/20 20:16 DC 07/10/20 20:09 25 MCG Ondansetron HCl 4 mg ONCE ONCE IVP 07/10/20 20:15 07/10/20 20:16 DC 07/10/20 20:08 4 MG Sodium Chloride 1,000 ml @ 0 mls/hr Q0M ONCE IV 07/10/20 20:15 07/10/20 20:16 DC 07/10/20 20:12 999 MLS/HR Vital Signs/I&O 07/10/20 07/10/20 07/10/20 07/10/20 17:45 19:52 20:18 22:20 Temp 36.5 36.5 Pulse 71 82 Resp 16 16 B/P (MAP) 171/99 (123) Pulse Ox 98 97 O2 Delivery Room Air Nasal Cannula Nasal Cannula Room Air O2 Flow Rate 2.00 2.00 2.00 Blood Pressure Mean: 123 Progress Progress Note : Progress Note CONSCIOUS SEDATION WITH CLOSED REDUCTION PERFORMED. NO COMPLICATIONS. PT OBSERVED IN ER FOR A FEW HOURS POST PROCEDURE, PT IS ABLE TO TALK AND WALK ON HER OWN PRIOR TO DISMISSAL PT FEELS COMFORTABLE GOING HOME STATES SHE HAS A WALKER AT HOME Diagnostic Imaging Comments XRAYS PELVIS AND RIGHT HIP--PER RADIOLOGIST REPORT AT 184 FINDINGS AND IMPRESSION: 1: Bilateral total hip arthroplasties are again seen. There is anterior right hip dislocation. 2: The left total hip arthroplasty appears intact. 3: There is no fracture seen. 4: There is levoscoliosis of the lumbar spine and hypertrophic spurs and facet arthropathy. POST REDUCTION FILM--PER RADIOLOGIST REPORT AT 2031 FINDINGS: There has been a right total hip arthroplasty. The femoral component has been reduced and is now within the acetabular component. No acute fracture is seen. IMPRESSION: 1. Reduction of a dislocated right hip joint prosthesis. Reviewed: Reviewed by Me Departure Communication (Admissions) 1836--CALLED DR. CARRASCO, ORTHOPEDIC SURGEON ARCHITECTURE CONSULTANT. Impression Primary Impression: SPONTANEOUS RIGHT HIP DISLOCATION OF PROSTHETIC JOINT Additional Impression: CLOSED REDUCTION OF R HIP DISLOCATION WITH CONSCIOUS SEDATION Disposition: HOME, SELF-CARE Condition: Improved Departure-Patient Inst. Referrals: SUSANNAH GAMBLE MD (PCP/Family) Primary Care Physician Patient Instructions: Hip Dislocation (DC), Procedural Sedation, Adult ED Add. Discharge Instructions: WEAR "HIP STABILIZER" / KNEE [id number] PRESCRIBED BY YOUR ORTHOPEDIC SURGEON USE YOUR WALKER AT ALL TIMES ICE TO AREA AT 20 MINUTE INTERVALS TYLENOL AND MOTRIN NEEDED FOR PAIN FOLLOW UP WITH YOUR ORTHOPEDIC SURGEON AT [facility] 4 STATES THIS WEEK FOR FURTHER CARE RETURN TO ER IF PROBLEMS All discharge instructions reviewed with patient and/or family. Voiced understan itzel. ADRIAN PACHECO DO Jul 10, 2020 18:36
--- NOTE | 2020-07-10 18:46 | Diagnostic Imaging Report ---
CLINICAL INDICATIONS: Patient with right hip replacement with probable dislocation. Patient has history of previous dislocation. EXAM: X-ray pelvis AP view and x-ray of the right hip, AP and crosstable lateral views. COMPARISON: X-ray pelvis dated 05/12/2020. FINDINGS AND IMPRESSION: 1: Bilateral total hip arthroplasties are again seen. There is anterior right hip dislocation. 2: The left total hip arthroplasty appears intact. 3: There is no fracture seen. 4: There is levoscoliosis of the lumbar spine and hypertrophic spurs and facet arthropathy. Dictated by: Dictated on workstation # [id number]
[2020-07-10] MEDS ORDERED: ETOMIDATE IV SOLN 20 MG/10 ML VIAL ONE (19:40)
[2020-07-10] MEDS ORDERED: ONDANSETRON 4 MG/2 ML (SDV) Z0FRAN ONE (19:40)
--- NOTE | 2020-07-10 19:57 | NUR ---
ETCO2 30 AT THIS TIME. O2 VIA 2L PER NC WITH O2 SATS 98%.
--- NOTE | 2020-07-10 19:58 | NUR ---
STANDARD SIZE PELVIC BINDER PLACED AT THIS TIME PER VERBAL ORDER DR. PACHECO POST CLOSED REDUCTION OF RIGHT HIP DISLOCATION.
[2020-07-10] MEDS ORDERED: fentaNYL INJECTION 100 MCG/2 ML AMP IVP ONE (20:15)
[2020-07-10] MEDS ORDERED: ETOMIDATE IV SOLN 20 MG/10 ML VIAL IV ONE (20:15)
[2020-07-10] MEDS ORDERED: ONDANSETRON 4 MG/2 ML (SDV) Z0FRAN IVP ONE (20:15)
[2020-07-10] MEDS ORDERED: RX-HYDROCODONE/APAP 5/325 MG #4 TAB PK PO PRN (20:15)
[2020-07-10] MEDS ORDERED: NS IV 1000 ML 1,000 ML IV ONE (20:15)
--- NOTE | 2020-07-10 20:18 | NUR ---
PT AWAKE, ALERT, AND ORIENTED. 2L VIA NC WITH O2 SATS 98%. DENIES PAIN AT THIS TIME.
--- NOTE | 2020-07-10 20:23 | NUR ---
O2 SATS 98-100%. 2L VIA NC REMOVED AT THIS TIME.
--- NOTE | 2020-07-10 20:25 | NUR ---
O2 SATS REMAIN 98% ON RA. ETCO2 30.
--- NOTE | 2020-07-10 20:30 | Diagnostic Imaging Report ---
EXAMINATION: Right hip one view. HISTORY: Postreduction. COMPARISON: Earlier the same day. FINDINGS: There has been a right total hip arthroplasty. The femoral component has been reduced and is now within the acetabular component. No acute fracture is seen. IMPRESSION: 1. Reduction of a dislocated right hip joint prosthesis. Dictated by: Dictated on workstation # [id number]
--- NOTE | 2020-07-10 20:48 | NUR ---
O2 SAT 96% ON RA. PT DENIES PAIN OR DISCOMFORT AT THIS TIME.
--- NOTE | 2020-07-10 22:20 | NUR ---
ALL DC INSTRUCTIONS REVIEWED WITH PT, VOICED UNDERSTANDING. PT FAMILY MEMBER TO COME PICK HER UP.
== END 2020-07-10 22:40 | disposition home or self-care (01) ==
LOC: EDUNIT# 17:45 → ER 17:46
DX: T84.020A Dislocation of internal right hip prosthesis, initial encounter (principal); I10 Essential (primary) hypertension; Z88.5 Allergy status to narcotic agent; G89.29 Other chronic pain; M54.9 Dorsalgia, unspecified; Z82.49 Family history of ischemic heart disease and other diseases of the circulatory system; Z79.82 Long term (current) use of aspirin; Z79.891 Long term (current) use of opiate analgesic
CPT/HCPCS: 51702; 73501; 93041

== ENCOUNTER 2020-09-19 11:09 | Emergency (ER) | payer MEDICARE, OTHER ==
[~2020-09-19] VITALS: Ht 162 cm; Wt 78.0 kg
--- NOTE | 2020-09-19 11:57 | ED Hip Pain/Injury ---
General Chief Complaint: Hip/Pelvic Problems Stated Complaint: R HIP PAIN Nursing Triage Note: PT WAS WALKING OUTSIDE WITH HER WALKER SHOWING HER SYLVIA A DITCH. PT HEARD RT KNEE POP AND THEN RT HIP. DENIES FALL. Source: patient Exam Limitations: no limitations History of Present Illness Date Seen by Provider: Sep 19, 2020 Time Seen by Provider: 11:25 Initial Comments Here by EMS with concerns of right hip dislocation. Apparently she has had this done before. She did have procedure done with Dr. Echavraria in July of this year in [place] to prevent this from happening again. She states that she was just standing and was using her walker when she felt a pop of her right knee and then her right hip. She did not fall and she did not injure herself otherwise. The x ray equipment mechanic was at the house looking at some work he had to do and was able to assist her to a chair. EMS was summoned. She is not in any pain as long as she is not moving. Denies other injury or concerns. Timing/Duration: just prior to arrival Location: hip (R) Modifying Factors: Improves With Immobilization; Worse With Movement Associated Symptoms: groin pain, trouble walking Allergies and Home Medications Allergies Coded Allergies: morphine (Verified Adverse Reaction, Mild, "MAKES ME CRAZY", TAKES LORTAB AT HOME, 01/26/15) Home Medications Amlodipine Besylate 10 Mg Tablet, 10 MG PO DAILY, (Reported) Aspirin 81 Mg Tablet.dr, 81 MG PO DAILY Prescribed by: REGINALDO YANEZ on 07/02/17 1304 Atorvastatin Calcium 20 Mg Tablet, 20 MG PO DAILY, (Reported) Clopidogrel Bisulfate 75 Mg Tablet, 75 MG PO DAILY, (Reported) Enalapril Maleate 20 Mg Tablet, 20 MG PO DAILY, (Reported) Hydrocodone Bit/Acetaminophen 1 Each Tablet, 1 EA PO Q4H PRN for PAIN-MODERATE Prescribed by: REGINALDO YANEZ on 07/02/17 1304 Hydrocodone Bit/Acetaminophen 1 Tab Tab, 1 EACH PO Q4-6HR PRN for PAIN-MODERATE Prescribed by: DION CHAVIRA on 05/25/19 1642 Meloxicam 15 Mg Tablet, 15 MG PO DAILY, (Reported) Multivitamin 1 Each Tablet, 1 EACH PO DAILY, (Reported) Sennosides/Docusate Sodium 1 Each Tablet, 1 EA PO BID Prescribed by: REGINALDO YANEZ on 07/02/17 1304 Sulfamethoxazole/Trimethoprim 1 Each Tablet, 1 EACH PO BID Prescribed by: CIPRIANO OSEI on 03/12/19 1357 Thyroid,Pork 30 Mg Tablet, 60 MG PO DAILY, (Reported) take 2 (30mg) tabs Patient Home Medication List Home Medication List Reviewed: Yes Review of Systems Constitutional: see HPI; No chills, No fever EENTM: no symptoms reported Respiratory: no symptoms reported Cardiovascular: no symptoms reported Gastrointestinal: No abdominal pain, No nausea, No vomiting Genitourinary: no symptoms reported Musculoskeletal: no symptoms reported Skin: no symptoms reported All Other Systems Reviewed Negative Unless Noted: Yes Past Secqamf-Oyyhvf-Bxdfhl Hx Past Med/Social Hx: Reviewed Nursing Past Med/Soc Hx Patient Social History Alcohol Use: Denies Use Smoking Status: Never a Smoker 2nd Hand Smoke Exposure: No Recent Infectious Disease Expo: No Recent Hopitalizations: No Immunizations Up To Date Tetanus Booster (TDap): More than 5yrs Seasonal Allergies Seasonal Allergies: No Past Medical History Surgeries: Yes (BILAT. 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 Genitourinary: Yes Kidney Infection, Bladder Infection Gastrointestinal: Yes Gall Bladder Disease Musculoskeletal: Yes (CHRONIC L LOWER LEG/ANKLE SWELLING SINCE HIP REPLAC;,BILAT TKR/TKR/R SHOULD) Arthritis, Chronic Back Pain Endocrine: Yes Hypothyroidsim HEENT: Yes Cataract Hearing Impairment: Hard of Hearing Cancer: No Psychosocial: No Integumentary: No Blood Disorders: No Adverse Reaction/Blood Tranf: No Family Medical History Reviewed Nursing Family Hx Congenital heart disease 19 MOTHER Congestive heart failure 19 MOTHER Family history: Cardiovascular disease 19 MOTHER Heart disease 19 MOTHER Myocardial infarction Stroke 19 FATHER PAST SURGICAL HISTORY: -BILATERAL KNEE REPLACEMENT -BILATERAL HIP REPLACEMENTS -REVISION LEFT HIP REPLACMENT -RIGHT SHOULDER REPLACEMENT RECURRENT HIP DISLOCATIONS OF PROSTHETIC HIPS, WITH CLOSED REDUCTIONS. Physical Exam Vital Signs Vital Signs - First Documented 09/19/20 11:09 Temp 35.2 Pulse 73 Resp 20 B/P (MAP) 142/81 (101) Pulse Ox 99 O2 Delivery Room Air Capillary Refill : Less Than 3 Seconds Height, Weight, BMI Height: 5'3.00" Weight: 163lbs. 0.0oz. 73.297663eu; 29.00 BMI Method:Stated General Appearance: No Apparent Distress, WD/WN HEENT: PERRL/EOMI, Pharynx Normal Neck: Non Tender, Supple Cardiovascular: Regular Rate, Rhythm, No Murmur Respiratory: Lungs Clear, Normal Breath Sounds Gastrointestinal: Non Tender, Soft Back: No CVA Tenderness, No Vertebral Tenderness Extremity: No Pedal Edema; Other (Tender over area of right hip and pain with any internal or external rotation or flexion extension. Patient is comfortable with straight leg resting on bed.) Neurologic/Psychiatric: Alert, Normal Mood/Affect Skin: Normal Color, Warm/Dry Procedures/Interventions Patient Education: Explained Benefits, Explained Risks, Pt. Ack. Understanding Breath Sounds per Auscultation: Clear Heart Sounds per Auscultation: Regular Airway Exam: Mouth opens >2 fingers, Neck Full Range of Motion, Visulation of Uvula Sedation Adminstration Time: 1115 Re-examination Time: 1145 Progress/Results/Core Measures Results/Orders My Orders Orders - KALEY LEUNG MD Knee, Right, 3 Views (09/19/20 11:29) Pelvis With Right Hip 2-3views (09/19/20 11:29) Vital Signs/I&O 09/19/20 11:09 Temp 35.2 Pulse 73 Resp 20 B/P (MAP) 142/81 (101) Pulse Ox 99 O2 Delivery Room Air Blood Pressure Mean: 101 Progress Progress Note : Progress Note Seen and evaluated. X-ray of right knee and right hip and pelvis. Patient without pain currently. Monitor patient. 1244: We have done in and out catheter for urine as patient had to void and x-ray definitely shows anterior dislocation. I have discussed the case with Dr. Green and he is looking at the x-rays currently. We will initiate IV as she will need this for pain control and/or reduction attempts if were able to do here versus transfer. Monitor patient. 1255: I did discuss the case with Dr. GREEN and this is a challenging dislocation with previous hardware and he is recommending transfer back to facility where work was done especially since it does look like there may be cage involved. I have initiated transfer proceedings with [facility]. Patient informed and agrees. Monitor patient. 1310: I did discuss the case with Dr. Huggins and he accepts patient for transfer ER to ER for possible reduction in the ER if able versus OR requirement. This was after discussion with the midlevel for Dr. Echavarria. This was discussed with the patient who agrees. Patient will go by EMS. She is currently comfortable. Diagnostic Imaging Diagonstic Imaging: Xray Plain Films/CT/US/NM/MRI: knee Comments [facility] [place], [place] NAME: [place] R MED REC#: [id number] PT STATUS: REG ER : 1940 PHYSICIAN: KALEY LEUNG MD ADMIT DATE: 09/19/20/ER Draft Date of Exam:09/19/20 KNEE, RIGHT, 3 VIEWS Indication: Knee pain COMPARISON: 10/16/2011 TECHNIQUE: 3 radiographs the right knee dated 09/19/2020 FINDINGS: Right total knee arthroplasty is in place. No evidence of hardware complication. No acute fracture or dislocation. No destructive osseous process. Mild vascular calcifications. No suspicious radiopaque foreign body. IMPRESSION: Right total knee arthroplasty without evidence of hardware complication or acute osseous abnormality. Dictated on workstation # [id number] Dict: 09/19/20 1220 Trans: 09/19/20 1224 [facility] [id number] Interpreted by: JOE HUNTER MD Electronically signed by: Reviewed: Reviewed by Me Diagonstic Imaging: Xray Plain Films/CT/US/NM/MRI: pelvis, hip Comments [facility] [place] [place] NAME: [place] R MED REC#: [id number] PT STATUS: REG ER : 1940 PHYSICIAN: KALEY LEUNG MD ADMIT DATE: 09/19/20/ER Draft Date of Exam:09/19/20 PELVIS WITH RIGHT HIP 2-3VIEWS Indication: Right hip pain COMPARISON: 07/10/2020 TECHNIQUE: 3 radiographs of the pelvis and right hip dated 09/19/2020 FINDINGS: Right total hip arthroplasty is again identified. There is resulting anterolateral dislocation of the prosthetic right hip with retraction and superior positioning of the prosthetic right humeral head in relationship to the prosthetic acetabulum. Left total hip arthroplasty is also present. Ill-defined lucency is suggested extending to the most superior aspect of the greater tuberosity on the right. No additional fracture. No additional dislocation. Advanced degenerative changes within the partially visualized lower lumbar spine. Degenerative changes within the bilateral sacroiliac joints, right greater than left. The pubic symphysis is intact. IMPRESSION: Anterolateral dislocation of the prosthetic right hip joint as described above with slight overriding and retraction. Questionable nondisplaced minimal fracturing of the right greater trochanter. Scattered degenerative changes, particularly within the lower lumbar spine and right sacroiliac joint. Dictated on workstation # [id number] Dict: 09/19/20 1223 Trans: 09/19/20 1228 [place] [id number] Interpreted by: JOE HUNTER MD Electronically signed by: Departure Impression Primary Impression: Anterior dislocation of right hip Qualified Codes: S73.034A - Other anterior dislocation of right hip, initial encounter Disposition: XFER SHT-TRM HOSP Condition: Stable Transfer Transfer Reason: Exceeds level of care Transfer Time: 13:10 Transfer Facility: [place], [place], Dr. Huggins accepting Method of Transfer: EMS Departure-Patient Inst. Referrals: SUSANNAH GAMBLE MD (PCP/Family) Primary Care Physician KALEY LEUNG MD Sep 19, 2020 11:57
--- NOTE | 2020-09-19 12:24 | Diagnostic Imaging Report ---
Indication: Knee pain COMPARISON: 10/16/2011 TECHNIQUE: 3 radiographs the right knee dated 09/19/2020 FINDINGS: Right total knee arthroplasty is in place. No evidence of hardware complication. No acute fracture or dislocation. No destructive osseous process. Mild vascular calcifications. No suspicious radiopaque foreign body. IMPRESSION: Right total knee arthroplasty without evidence of hardware complication or acute osseous abnormality. Dictated by: Dictated on workstation # [id number]
--- NOTE | 2020-09-19 12:29 | Diagnostic Imaging Report ---
Indication: Right hip pain COMPARISON: 07/10/2020 TECHNIQUE: 3 radiographs of the pelvis and right hip dated 09/19/2020 FINDINGS: Right total hip arthroplasty is again identified. There is resulting anterolateral dislocation of the prosthetic right hip with retraction and superior positioning of the prosthetic right humeral head in relationship to the prosthetic acetabulum. Left total hip arthroplasty is also present. Ill-defined lucency is suggested extending to the most superior aspect of the greater tuberosity on the right. No additional fracture. No additional dislocation. Advanced degenerative changes within the partially visualized lower lumbar spine. Degenerative changes within the bilateral sacroiliac joints, right greater than left. The pubic symphysis is intact. IMPRESSION: Anterolateral dislocation of the prosthetic right hip joint as described above with slight overriding and retraction. Questionable nondisplaced minimal fracturing of the right greater trochanter. Scattered degenerative changes, particularly within the lower lumbar spine and right sacroiliac joint. Dictated by: Dictated on workstation # [id number]
[2020-09-19 14:13] VITALS: BP 169/80
== END 2020-09-19 14:13 | disposition short-term general hospital (02) ==
LOC: EDUNIT# 11:09 → ER 11:10
DX: S73.034A Other anterior dislocation of right hip, initial encounter (principal); I10 Essential (primary) hypertension; E03.9 Hypothyroidism, unspecified; Z86.718 Personal history of other venous thrombosis and embolism; Z86.73 Personal history of transient ischemic attack (TIA), and cerebral infarction without residual deficits; Z96.641 Presence of right artificial hip joint; Z96.642 Presence of left artificial hip joint; Z96.611 Presence of right artificial shoulder joint; Z79.899 Other long term (current) drug therapy; Z79.82 Long term (current) use of aspirin; Z79.02 Long term (current) use of antithrombotics/antiplatelets; Z88.5 Allergy status to narcotic agent; X50.1XXA Overexertion from prolonged static or awkward postures, initial encounter
CPT/HCPCS: 51701; 73562

== ENCOUNTER 2021-05-07 12:35 | Emergency (ER) | payer MEDICARE, OTHER ==
[~2021-05-07] VITALS: Ht 160 cm; Wt 78.0 kg
[~2021-05-07 12:35] MED LIST changes: -SULF1TAB35 PO; +SULF1TAB38 PO
--- NOTE | 2021-05-07 12:47 | ED Lower Extremity ---
General Chief Complaint: Lower Extremity Stated Complaint: R HIP DISLOCATED Source: patient, EMS Exam Limitations: no limitations (CIPRIANO OSEI) History of Present Illness Date Seen by Provider: May 07, 2021 Time Seen by Provider: 12:34 Initial Comments Patient to the ER by EMS from home with chief complaint she had just finished doing the dishes and was standing looking at the front window at the mailman beside her walker when she felt her right hip fall out of place. She is had it replaced in the past and had displaced hips 4 times in the past. Dr. Echavarria at [address] is her orthopedic surgeon. She denies a fall. She says she sat back into her walker. She denies hitting her head loss of consciousness. She is having 1 out of 10 pain. She did not receive anything from EMS and does not want anything for the pain now. She says in the past when it dislocated she did not have a lot of pain. She is still able to feel and move her right foot. No recent illness, cough, fever, chills, nausea, vomiting, diarrhea (CIPRIANO OSEI) Allergies and Home Medications Allergies Coded Allergies: morphine (Verified Adverse Reaction, Mild, "MAKES ME CRAZY", TAKES LORTAB AT HOME, 01/26/15) Patient Home Medication List Home Medication List Reviewed: Yes (CIPRIANO OSEI) Amlodipine Besylate (Amlodipine Besylate) 10 Mg Tablet, 10 MG PO DAILY, (Reported) Entered as Reported by: TERRY CHERRY on 06/17/17 1025 Aspirin (Aspir 81) 81 Mg Tablet.dr 81 MG PO DAILY Prescribed by: REGINALDO YANEZ on 07/02/17 1304 Atorvastatin Calcium (Atorvastatin Calcium) 20 Mg Tablet, 20 MG PO DAILY, (Reported) Entered as Reported by: TERRY CHERRY on 06/17/17 1025 Clopidogrel Bisulfate (Clopidogrel) 75 Mg Tablet, 75 MG PO DAILY, (Reported) Entered as Reported by: TERRY CHERRY on 06/17/17 1025 Enalapril Maleate (Enalapril Maleate) 20 Mg Tablet, 20 MG PO DAILY, (Reported) Entered as Reported by: TERRY CHERRY on 06/17/17 1025 Hydrocodone Bit/Acetaminophen (HYDROcodone/APAP 10/325 TABLET) 1 Each Tablet, 1 EA PO Q4H PRN for PAIN-MODERATE Prescribed by: REGINALDO YANEZ on 07/02/17 1304 Hydrocodone Bit/Acetaminophen (Lortab 5 Mg Tablet) 1 Tab Tab, 1 EACH PO Q4-6HR PRN for PAIN-MODERATE Prescribed by: DION CHAVIRA on 05/25/19 1642 Meloxicam (Mobic) 15 Mg Tablet, 15 MG PO DAILY, (Reported) Entered as Reported by: AGAPITO MOSELEY on 08/28/15 1600 Multivitamin (Multivitamins) 1 Each Tablet, 1 EACH PO DAILY, (Reported) Entered as Reported by: TERRY CHERRY on 06/17/17 1025 Sennosides/Docusate Sodium (Senna-Time S Tablet) 1 Each Tablet, 1 EA PO BID Prescribed by: REGINALDO YANEZ on 07/02/17 1304 Sulfamethoxazole/Trimethoprim (Bactrim Ds Tablet) 1 Each Tablet, 1 EACH PO BID Prescribed by: CIPRIANO OSEI on 03/12/19 1357 Thyroid,Pork ([place] Thyroid) 30 Mg Tablet, 60 MG PO DAILY, (Reported) Entered as Reported by: AGAPITO MOSELEY on 08/29/15 1049 Review of Systems Constitutional: No chills, No diaphoresis EENTM: No ear discharge, No ear pain Respiratory: No cough, No short of breath Cardiovascular: No chest pain, No palpitations Gastrointestinal: No abdominal pain, No nausea, No vomiting Genitourinary: No discharge, No dysuria Musculoskeletal: see HPI; No back pain; joint pain (CIPRIANO OSEI) All Other Systems Reviewed Negative Unless Noted: Yes (CIPRIANO OSEI) Past Kvkgisb-Cgbhpu-Zvkyct Hx Patient Social History Tobacco Use?: No Use of E-Cig and/or Vaping dev: No Substance use?: No (CIPRIANO OSEI) Immunizations Up To Date Tetanus Booster (TDap): More than 5yrs (CIPRIANO OSEI) Seasonal Allergies Seasonal Allergies: No (CIPRIANO OSEI) Past Medical History Surgeries: Yes (BILAT. TKR AND THR WITH REVISIONS OF LEFT HIP; R SHOULDER REPLACEMENT) Adrenal, Appendectomy, Gallbladder, Hysterectomy, Joint Replacement, Oophorectomy, Orthopedic Respiratory: No Currently Using CPAP: No Currently Using BIPAP: No Cardiac: Yes (Scarlet Fever when 15 months old) Deep Vein Thrombosis, Hypertension Neurological: Yes (stroke x3) Stroke Reproductive Disorders: No [employer] History: Hysterectomy, Menopausal Genitourinary: Yes Kidney Infection, Bladder Infection Gastrointestinal: Yes Gall Bladder Disease Musculoskeletal: Yes (CHRONIC L LOWER LEG/ANKLE SWELLING SINCE HIP REPLAC;,BILAT TKR/TKR/R SHOULD) Arthritis, Chronic Back Pain Endocrine: Yes Hypothyroidsim HEENT: Yes Cataract Hearing Impairment: Hard of Hearing Cancer: No Psychosocial: No Integumentary: No Blood Disorders: No Adverse Reaction/Blood Tranf: No (CIPRIANO OSEI) Family Medical History Congenital heart disease 19 MOTHER Congestive heart failure 19 MOTHER Family history: Cardiovascular disease 19 MOTHER Heart disease 19 MOTHER Myocardial infarction Stroke 19 FATHER No Family History of: Abdominal aortic aneurysm Riley's disease Alcoholism Aphasia Cancer Cancer of colon Cataract Chest pain Cystic fibrosis Dementia Dysphagia Family history: Allergy Family history: Alzheimer's disease Family history: Arthritis Family history: Asthma Family history: Breast disease Family history: Coronary thrombosis Family history: Diabetes mellitus Family history: Gastrointestinal disease Family history: Glaucoma Family history: Hypertension Family history: Osteoporosis Family history: Thyroid disorder Headache Hearing loss Hereditary disease History of - anemia History of - disorder History of - respiratory disease History of drug abuse Human immunodeficiency virus (HIV) seropositivity Hypercholesterolemia Infertile Kidney disease Malignant neoplasm of lung Parkinson's disease Prostate cancer Psychotic disorder Seizure disorder Tuberculosis Visual impairment PAST SURGICAL HISTORY: -BILATERAL KNEE REPLACEMENT -BILATERAL HIP REPLACEMENTS -REVISION LEFT HIP REPLACMENT -RIGHT SHOULDER REPLACEMENT RECURRENT HIP DISLOCATIONS OF PROSTHETIC HIPS, WITH CLOSED REDUCTIONS. (CIPRIANO OSEI) Physical Exam Vital Signs Vital Signs - First Documented 05/07/21 05/07/21 12:35 16:08 Temp 36.5 Pulse 86 Resp 18 B/P (MAP) 178/96 (123) Pulse Ox 97 O2 Delivery Room Air O2 Flow Rate 3.00 (JUAN MALDONADO MD) Vital Signs Capillary Refill : (CIPRIANO OSEI) Height, Weight, BMI Height: 5'3.00" Weight: 163lbs. 0.0oz. 73.438025re; 29.00 BMI Method:Stated General Appearance: WD/WN, no apparent distress HEENT: PERRL/EOMI, pharynx normal Neck: full range of motion, normal inspection Cardiovascular: normal peripheral pulses, regular rate, rhythm, other (Trace bipedal edema) Respiratory: lungs clear, normal breath sounds, no respiratory distress, no accessory muscle use Back: normal inspection, no vertebral tenderness Hips: right hip pain (110 inguinal discomfort), right hip other (External rotation of the right lower extremity) Feet: bilateral foot non-tender, bilateral foot normal inspection, bilateral foot normal range of motion, bilateral foot no evidence of injury, bilateral foot other (2 out of 4 posterior tibial pulse palpable) Neurologic/Tendon: normal sensation, normal motor functions, responds to pain Neurologic/Psychiatric: alert, normal mood/affect, oriented x 3 Skin: normal color, warm/dry (CIPRIANO OSEI) Procedures/Interventions Procedure: Conscious sedation for closed reduction of right hip dislocation Patient Education: Explained Benefits, Explained Risks, Pt. Ack. Understanding Agreement on procedure with pt: Yes Breath Sounds per Auscultation: Clear Heart Sounds per Auscultation: Regular Airway Exam: Mouth opens >2 fingers, Neck Full Range of Motion, Visulation of Uvula Sedation Adminstration Time: 16:00 Total Time spent in CS 45 Regained adequate anesthesia and analgesia using 1 mg/kg, 80 mg of ketamine. We are able to apply traction and feel the head of the femur prosthesis clunk into the acetabular prosthesis. We internally rotate the leg and soon as we released traction we can feel and hear it clunks back out of place. This was attempted 3 times and then a post reduction attempt x-ray was taken demonstrating no fracture but persistent anterior dislocation. Patient tolerated procedure well. (CIPRIANO OSEI) Progress/Results/Core Measures Results/Orders My Orders Orders - JUAN MALDONADO MD Hip, Right (Single View) (05/07/21 18:19) (JUAN MALDONADO MD) Medications Given in ED Current Medications Medications Dose Ordered Sig/Joel Route Start Time Stop Time Status Last Admin Dose Admin Ketamine HCl 80 mg ONCE ONCE IV 05/07/21 15:00 05/07/21 15:01 DC 05/07/21 16:07 80 MG (JUAN MALDONADO MD) Vital Signs/I&O 05/07/21 05/07/21 05/07/21 05/07/21 12:35 16:05 16:08 17:32 Temp 36.5 36.5 36.5 Pulse 86 84 75 Resp 18 18 18 18 B/P (MAP) 178/96 (123) 176/96 171/89 Pulse Ox 97 98 97 O2 Delivery Room Air Room Air Nasal Cannula Room Air O2 Flow Rate 3.00 (JUAN MALDONADO MD) Progress Progress Note #1: Time: 12:46 Progress Note Plain film right hip. She declined anything for pain. Progress Note #2: Time: 13:59 Progress Note Consultation with Dr. Oliva, partner for Dr. Echavarria. He gave recommendations for an anterior dislocation, knee immobilizer and follow-up in the clinic with Dr. Echavarria. Progress Note #3: Time: 16:[address] Oliva. (CIPRIANO OSEI) Progress Note : Progress Note Paged Dr. Oliva again at 18:30 and discussed the case with him. When I arrived on shift I also attempted reduction of the anterior dislocation since she was still pain free from her previous Ketamine. Vian a clunk like it was in and her leg length discrepancy was gone. She attempted to range it and this then reversed itself. Attempted this one more time with the same result. XR confirmed still out. Dr. Oliva recommended ER to ER transfer to [facility] and he will take her to the OR which the [facility] ER was agreeable to. (JUAN MALDONADO MD) Diagnostic Imaging Diagonstic Imaging: Xray Plain Films/CT/US/NM/MRI: hip (r) Comments [facility], [place] NAME: KOTA ALTMAN MED REC#: [id number] PT STATUS: REG ER : 1940 PHYSICIAN: CIPRIANO OSEI MD ADMIT DATE: 05/07/21/ER Draft Date of Exam:05/07/21 HIP, RIGHT, 2 VIEWS INDICATION: Right hip pain. AP and lateral views of the right hip are obtained at 1:08 p.m. and compared to 05/25/2019. FINDINGS: There is a right hip prosthesis. There is dislocation of the prosthesis with the femoral head component displaced superiorly and anteriorly relative to the acetabular cup. There is no acute fracture. IMPRESSION: Dislocation of right hip prosthesis as described above. Dictated on workstation # [id number] Dict: 05/07/21 1308 Trans: 05/07/21 1311 [id number] Interpreted by: ALEXSANDER MICHAEL MD Electronically signed by: Reviewed: Reviewed by Me Diagonstic Imaging: Xray Plain Films/CT/US/NM/MRI: hip (r) Comments [facility] [place] NAME: KOTA ALTMAN [facility] REC#: [id number] PT STATUS: REG ER : 1940 PHYSICIAN: CIPRIANO OSEI MD ADMIT DATE: 05/07/21/ER Signed Date of Exam:05/07/21 HIP, RIGHT, 2 VIEWS HISTORY: Right hip pain, post reduction. TECHNIQUE: Two views of the right hip. COMPARISON: 05/07/2021. FINDINGS: There is a right total hip arthroplasty. Redemonstrated is superior dislocation of the femoral head component from the acetabular cup. This appears unchanged in alignment compared to the prior exam. No acute fracture is seen. Findings otherwise appear unchanged. IMPRESSION: Persistent superior dislocation of the right hip prosthesis. Dictated by: Dictated on workstation # [id number] Dict: 05/07/21 1645 Trans: 05/07/21 1655 [id number] Interpreted by: HARDY METZ MD Electronically signed by: HARDY METZ MD 05/07/21 1655 Reviewed: Reviewed by Me (CIPRIANO OSEI) Transfer of Care Time: 18:12 Care transferred to: Dr. Becker (CIPRIANO OSEI) Departure Impression Primary Impression: Anterior dislocation of right hip Qualified Codes: S73.034A - Other anterior dislocation of right hip, initial encounter Disposition: XF [facility]-TRM HOSP Condition: Stable Transfer Transfer Reason: Patient preference (continuity of care) Time Spoke to Accepting Phy: 18:40 Transfer Progress Notes Accepting surgeon was pamela Read, recommends ER to ER transfer. Transfer Facility: [facility] Method of Transfer: EMS (JUAN MALDONADO MD) Departure-Patient Inst. Referrals: SUSANNAH GAMBLE MD (PCP/Family) Primary Care Physician Patient Instructions: Moderate Sedation in Adults (DC) CIPRIANO OSEI May 07, 2021 12:47 JUAN MALDONADO MD May 07, 2021 18:54
--- NOTE | 2021-05-07 13:11 | Diagnostic Imaging Report ---
INDICATION: Right hip pain. AP and lateral views of the right hip are obtained at 1:08 p.m. and compared to 05/25/2019. FINDINGS: There is a right hip prosthesis. There is dislocation of the prosthesis with the femoral head component displaced superiorly and anteriorly relative to the acetabular cup. There is no acute fracture. IMPRESSION: Dislocation of right hip prosthesis as described above. Dictated by: Dictated on workstation # [id number]
[2021-05-07] MEDS ORDERED: KETAMINE HCL 100 MG/ML 5 ML VIAL IV ONE (15:00)
--- NOTE | 2021-05-07 16:50 | Diagnostic Imaging Report ---
HISTORY: Right hip pain, post reduction. TECHNIQUE: Two views of the right hip. COMPARISON: 05/07/2021. FINDINGS: There is a right total hip arthroplasty. Redemonstrated is superior dislocation of the femoral head component from the acetabular cup. This appears unchanged in alignment compared to the prior exam. No acute fracture is seen. Findings otherwise appear unchanged. IMPRESSION: Persistent superior dislocation of the right hip prosthesis. Dictated by: Dictated on workstation # [id number]
--- NOTE | 2021-05-07 18:58 | Diagnostic Imaging Report ---
INDICATION: Hip dislocation COMPARISON is made with a prior study performed earlier in the same day. FINDINGS: The patient's right sided hip arthroplasty remains superiorly dislocated. The ring of the acetabular component also appears to be displaced. No fracture is evident. IMPRESSION: Persistent unchanged superior dislocation of the patient's right hip arthroplasty. The ring of the acetabular cup also appears to be displaced which may complicate reduction efforts. Dictated by: Dictated on workstation # [id number]
[2021-05-07 21:20] VITALS: BP 167/80
== END 2021-05-07 21:28 | disposition short-term general hospital (02) ==
LOC: EDUNIT# 12:35 → ER 12:36
DX: S73.034A Other anterior dislocation of right hip, initial encounter (principal); I10 Essential (primary) hypertension; G89.29 Other chronic pain; M54.9 Dorsalgia, unspecified; Z86.73 Personal history of transient ischemic attack (TIA), and cerebral infarction without residual deficits; Z86.718 Personal history of other venous thrombosis and embolism; Z79.01 Long term (current) use of anticoagulants; Z79.82 Long term (current) use of aspirin; Z79.891 Long term (current) use of opiate analgesic; W18.30XA Fall on same level, unspecified, initial encounter
CPT/HCPCS: 51702; 73501; 73502; 93041; 96374; 99291

== ENCOUNTER → 2022-02-06 | Outpatient (CLI) | payer MEDICARE, OTHER | LOC: CARD 12:55 | PROVIDERS: ATTEND Internal Medicine Cardiovascular Disease | DX: I50.32 Chronic diastolic (congestive) heart failure (principal) | CPT/HCPCS: 93306 ==